=== PATIENT | female | born 1985 | race Caucasian/White ===

== ENCOUNTER 2018-02-16 15:47 | Outpatient (REF) | payer MEDICAID, SELFPAY ==
[2018-02-23 11:15] LABS: Methylphenidate NEGATIVE; Ritalinic Acid NEGATIVE
== END 2018-02-16 16:07 ==
LOC: NCHCN 15:47
PROVIDERS: PCP Family Medicine; Visit Provider Family Medicine
DX: F90.0 Attention-deficit hyperactivity disorder, predominantly inattentive type (principal); F11.20 Opioid dependence, uncomplicated
CPT/HCPCS: 80360

== ENCOUNTER 2019-08-25 01:25 | Outpatient (CLI) | payer MEDICAID, SELFPAY ==
[2019-08-25 15:24] LABS: Abs Immature Grans 0.03 k/cumm (0.0-0.09); Absolute Basophil Count 0.02 k/cumm (0.0-0.2); Absolute Eosinophil Count 0.11 k/cumm (0.0-0.7); Absolute Lymphocyte Count 2.56 k/cumm (1.2-3.4); Absolute Monocyte Count 0.71 k/cumm (0.11-0.7); Absolute Neutrophil Count 6.41 k/cumm (1.2-6.7); Basophils % 0.2; Eosinophils % 1.1; HCT 41.9 % (36.0-46.0); Immature Grans % 0.3 %; Mean Corp. HGB Concentration 33.4 g/dL (32.0-36.0); Mean Corpuscular Hemoglobin 30.8 pg (27.0-33.0); Mean Corpuscular Volume 92.1 fL (80-95); Mean Platelet Volume 11.1 fL (8.0-11.0); Monocytes % 7.2; Neutrophils % 65.2; Platelet Count 170 x1000/uL (130-400); RBC 4.55 m/cumm (4.00-5.20); RBC Distribution Width 12.2 % (11.7-14.6); White Blood Cell Count 9.84 k/cumm (4.4-10.8)
[2019-08-25 15:34] LABS: ALT 45 U/L (14-59); AST 27 U/L (15-37); Albumin 3.7 g/dL (3.4-5.0); Alkaline Phosphatase 46 U/L (46-116); Anion Gap 10.5 mmol/L (3-11); BUN 12 mg/dL (7-18); Bilirubin, Total 0.6 mg/dL (0.2-1.0); CO2 25.5 mmol/L (21.0-32.0); CREATININE 0.82 mg/dL (0.55-1.02); Calcium 9.1 mg/dL (8.5-10.1); Chloride 101 mmol/L (98-107); Glucose 94 mg/dL (74-106); Potassium 3.9 mmol/L (3.5-5.1); Sodium 137 mmol/L (136-145); Total Protein 8.6 g/dL (6.4-8.2)
== END 2019-08-25 01:45 ==
PROVIDERS: PCP Nurse Practitioner Family; Visit Provider Preventive Medicine Public Health & General Preventive Medicine
DX: B18.2 Chronic viral hepatitis C (principal)
CPT/HCPCS: 36415; 80053; 85025

== ENCOUNTER 2020-02-18 15:03 | Emergency (ER) | payer MEDICAID, SELFPAY ==
[2020-02-18 15:07] VITALS: BP 138/99; PULSE 99; RESP 18; TEMP 36.7; O2SAT 99
--- NOTE | 2020-02-18 15:23 | CMPROGNOTE_ITS ---
- If Service Date Differs Date of service: 02/18/20 Time of Service: 15:23 Care Management Progress Note S/O: Vee arrives today to the ED with a history of substance abuse, she is pacing back and fourth and appears agitated. She states she is sick related to opiate withdrawals. She reports she uses 4-5 bags of dope a day intravenously. She is accompanied by her boyfriend Sharan who is supportive in the room. Vee is concerned if she is started on Suboxone today that it will make her ill due to her last dose being this morning. She states she is willing to start with the [facility] program however she is concerned that she may not be able to get in due to a wait list. CM will fax referral to [facility] and request an appointment Wednesday morning if possible. Plan will be for Vee to start her dose here at [facility] today in the emergency department anticipating she will be able to start [facility] on Wednesday if they can fit her in their schedule. RAJ is faxing everything to to the clinic today including a consent to discuss the case with CM and [facility] team to coordinate treatment. A: Vee is a 34 year old female with a history of IV drug use, seeking treatment for withdrawal symptoms and induction to Suboxone. P: CM will follow up with [facility] and patient on Wednesday. Treatment to be started in the ED today. CM faxed forms and consent to [facility] to established care.
--- NOTE | 2020-02-18 15:41 | W.ED.GENAD ---
Discharge Plan Disposition Patient Disposition: HOME Condition: Stable Discharge Details Clinical Impression: Opioid dependence Primary Care Provider: Gianna Montemayor ED Provider: Reji Humphreys Home Meds and New Rx's Prescriptions: New sulfamethoxazole-trimethoprim [Bactrim DS] 800-160 mg tablet 1 tab PO BID 5 Days Qty: 10 RF: 0 diphenhydramine HCl [Benadryl] 25 mg capsule 50 mg PO QHS Qty: 5 RF: 0 Continued acetaminophen [Mapap Extra Strength] 500 MG tablet 1,000 mg PO PRN PRNRF: 0 phenazopyridine 200 mg tablet 200 mg PO TID RF: 0 ondansetron 4 mg tablet,disintegrating 4 mg PO PRN PRNRF: 0 aripiprazole 10 mg tablet 10 mg PO DAILY RF: 0 Discontinued buprenorphine-naloxone [Suboxone] 8-2 mg film 2 film sublingual DAILY RF: 0 No Action sulfamethoxazole-trimethoprim 800-160 mg tablet 1 tab PO BID RF: 0 Discharge Instructions Instructions: Urinary Tract Infection in Women (ED), Opioid Use Disorder (ED) Additional Instructions: You will be contacted by Monique Swann from our care management department tomorrow regarding follow-up at the [facility]. No alcohol or benzodiazepines such as Valium, Ativan. You received a single dose of 8 mg of Suboxone. No additional use of narcotics. You have evidence of urinary tract infection and should take the prescribed Bactrim. May use Benadryl 50 mg as needed for sleep at bedtime. Discharge Data Discharge Date/Time-TO BE ENTERED AT DEPARTURE: 02/18/20 18:55 Medical Decision Making 34-year-old opiate addict who is been using up to 10 bags of IV heroin per day presents with her significant other. She states she is been attempting to obtain entry into local buprenorphine program. States she used 2 bags of heroin last night, attempted to use scraped together small use this morning that she feels was ineffectual. Now with muscle cramps, nausea and anxiety. She is afebrile, pulse is 90, pressure 138/90. Cows score approximately 15-17. Discussed with patient and her significant other that she is exhibiting symptoms of withdrawal, but if she has used any long-acting opiates she would be at risk for precipitated withdrawal if started on buprenorphine. She states she has not used long-acting opiates and reiterates that heroin and fentanyl were her most recent use nearly 24 hours ago. Patient seen by care management in the emergency department and consent for treatment and transition of care to the [facility] obtained. Patient is not . Urine drug screen does not have benzos and. Clinically she has moderate withdrawal. She is desirous of restarting buprenorphine which she has had success with in the past. We discussed initiation of 4 mg versus 8 mg which patient has been on on the past. As above she has been using 10+ bags of heroin. Patient was consented for a single administration of 8 mg of Suboxone. She was observed for 45 minutes. She had some mild precipitated withdrawal symptoms. She was able to eat and drink without difficulty. She was seen by power and recovery supervisor. She requested discharge to home. Patient's labs were reviewed. She has evidence of urinary tract infection will be treated with Bactrim. She may use Benadryl as needed. HPI General Date/Time Provider Initiated Documentation: 02/18/20 15:05. Limitations to Documentation: no limitations. Information obtained by: patient. History of Present Illness 34 year old F presents to the emergency department with the chief complaint of Drug withdrawal, described as moderate, Quality is described as constant, and is localized to the abdomen and lower extremity. Patient started experiencing this hour(s) and it has been constant. No relieving factors improve symptom(s), No exacerbating factors reported . Patient notes loss of appetite; denies fever/chills and nausea/vomiting. Patient did receive the following treatments prior to arrival, none Related Data Home Medications Medication Instructions Recorded Confirmed acetaminophen [Mapap Extra 1,000 mg PO PRN PRN 08/19/12 02/18/20 Strength] aripiprazole 10 mg PO DAILY 02/18/20 02/18/20 diphenhydramine HCl [Benadryl] 50 mg PO QHS #5 cap 02/18/20 ondansetron 4 mg PO PRN PRN 02/18/20 02/18/20 phenazopyridine 200 mg PO TID 02/18/20 02/18/20 sulfamethoxazole-trimethoprim 1 tab PO BID 02/18/20 02/18/20 sulfamethoxazole-trimethoprim 1 tab PO BID 5 Days #10 tab 02/18/20 [Bactrim DS] Previous Rx's Medication Instructions Recorded diphenhydramine HCl [Benadryl] 50 mg PO QHS #5 cap 02/18/20 sulfamethoxazole-trimethoprim 1 tab PO BID 5 Days #10 tab 02/18/20 [Bactrim DS] Allergies Allergy/AdvReac Type Severity Reaction Status Date / Time aspirin Allergy Mild Hives Unverified 02/18/20 15:09 codeine [Codeine] Allergy Mild Hives Unverified 02/18/20 15:09 General Stated Complaint: DrugWithdr/MAT CORY: 2 Review of Systems Narrative: Last use of heroin/fentanyl last night and this morning. Previously on buprenorphine. 6 systems reviewed and otherwise negative. [facility] Social History Smoking/Tobacco Use Status: Current every day Drug use: Daily Substance use type: heroin Do you feel safe in your relationship?: No Exam Narrative Exam Narrative: GEN: awake, alert, anxious. Pleasant, well groomed, interactive. HEAD: Normocephalic, atraumatic ENT: Mucous membranes moist, oropharynx unremarkable, External ear exam unremarkable EYES: PERRL, EOMI NECK: Full ROM, no GILMA, no menigismus CHEST/RESP: Nontender, clear to auscultation bilateral, no wheeze/rhonchi/rales CARDIOVASCULAR: RRR, no murmur, rub danielle. 2+ Rad pulse bilateral ABDOMEN: Soft, nontender, no mass. +Bowel sounds EXT: Full ROM, no edema, no rash Neuro: Grossly normal neurologic exam, conversant, interactive. Psych: Speech fluent, thoughts congruent, affect anxious Course Vital Signs Vital signs: Vital Signs Temperature 36.7 C 02/18/20 15:07 Pulse 99 H 02/18/20 15:07 Respiratory Rate 18 02/18/20 15:07 Blood Pressure 138/99 H 02/18/20 15:07 Pulse Oximetry 99 02/18/20 15:07 Temperature 36.7 C 02/18/20 15:07 Pulse 99 H 02/18/20 15:07 Respiratory Rate 18 02/18/20 15:07 Respiratory Effort Non-Labored 02/18/20 15:10 Respiratory Pattern Normal 02/18/20 15:22 Blood Pressure 138/99 H 02/18/20 15:07 Blood Pressure Position Sitting 10/11/20 15:07 Pulse Oximetry 99 02/18/20 15:07 Oxygen Delivery Method Room Air 02/18/20 15:07 Oxygen Flow Rate 0 02/18/20 15:07
[2020-02-18] MEDS: cloNIDine 0.1 MG TAB 0.2 MG PO (15:53)
[2020-02-18 16:15] LABS: Abs Immature Grans 0.02 10^3/uL (0.0-0.06); Absolute Basophil Count 0.02 10^3/uL (0.0-0.2); Absolute Eosinophil Count 0.11 10^3/uL (0.0-0.7); Absolute Lymphocyte Count 2.84 10^3/uL (1.2-3.4); Absolute Monocyte Count 0.61 10^3/uL (0.1-0.8); Absolute Neutrophil Count 3.89 10^3/uL (1.2-6.7); Basophils % 0.3; Eosinophils % 1.5; HCT 41.8 % (36.0-46.0); HGB 13.5 g/dL (11.2-15.7); Immature Grans % 0.3; Lymphocytes % 37.9; MCH 28.7 pg (27.0-33.0); MCHC 32.3 % (32.0-36.0); MCV 88.9 fL (80-95); Monocytes % 8.1; Neutrophils % 51.9; Nucleated RBC 0 %; Platelet Count 229 10^3/uL (130-400); RDW 12.9 % (11.7-14.6); RDW-SD 42.3 fL; WBC 7.49 10^3/uL (4.4-10.8)
[2020-02-18 16:26] LABS: Bilirubin Negative (Negative); Blood Negative (Negative); Clarity Clear (Clear); Glucose Negative (Negative); Ketones Negative (Negative); Leukocyte Esterase Negative (Negative); Nitrite Positive (Negative); Specific Gravity 1.015 (1.005-1.025); Urobilinogen 0.2 EU/dL (Up TO 0.2)
[2020-02-18 16:27] LABS: ALT 36 U/L (14-59); AST 17 U/L (15-37); Albumin 3.5 g/dL (3.4-5.0); Alkaline Phosphatase 66 U/L (46-116); Anion Gap 8.1 mmol/L (3-11); BUN 15 mg/dL (7-18); Bilirubin, Total 0.2 mg/dL (0.2-1.0); CO2 30.9 mmol/L (21.0-32.0); CREATININE 0.81 mg/dL (0.55-1.02); Chloride 100 mmol/L (98-107); Glucose 79 mg/dL (74-106); Potassium 3.8 mmol/L (3.5-5.1); Sodium 139 mmol/L (136-145); Total Protein 8.6 g/dL (6.4-8.2)
[2020-02-18 16:32] LABS: *AMPHETAMINES SCREEN URINE POSITIVE (Negative); *BARBITURATES SCREEN URINE Negative (Negative); *BENZODIAZEPINES SCREEN URINE Negative (Negative); Cannabinoids THC Negative (Negative); Cocaine Screen,Urine POSITIVE (Negative); METHADONE URINE SCREEN Negative (Negative); OPIATES URINE SCREEN POSITIVE (Negative)
[2020-02-18 16:34] LABS: Bacteria Many HPF (Negative); C & S Indicated? No/Sq. Contamination; Casts Negative LPF (Negative); Crystals Negative HPF (Negative); Epithelial Cells Moderate HPF (Negative); Mucus Negative (Negative); RBC Negative HPF (0-2)
[2020-02-18 16:38] LABS: Tricyclic Antidepressants Negative (Negative)
[2020-02-18 16:39] LABS: ETHANOL BLOOD < 3.0 mg/dL (<3)
[2020-02-18] MEDS: Buprenorphine/Naloxone 8 mg/2 mg FILM 1 EACH SL (17:12)
[2020-02-18 17:37] VITALS: BP 123/76; PULSE 67; TEMP 36.8; O2SAT 98
[2020-02-18] MEDS: diphenhydrAMINE 25 MG CAP 50 MG PO (18:34)
[2020-02-20 10:30] LABS: HIV-1/2 Ag & Ab Screen Negative (Negative)
[2020-02-20 10:58] LABS: HBs Antibody, Quant 14.3 mIU/mL (See Note); Hep B Surface Ab Positive (See Note); Hepatitis B Core Antibody Negative (Negative); Hepatitis B Surface Antigen Negative (Negative)
[2020-02-20 11:22] LABS: Hepatitis C Ab w Rflx HCV PCR Reactive (Negative)
[2020-02-21 13:50] LABS: HCV RNA Qualitative Detected (Undetected)
== END 2020-02-18 18:55 | disposition home or self-care (01) ==
PROVIDERS: Emergency Provider Emergency Medicine; PCP Nurse Practitioner Family
DX: F11.23 Opioid dependence with withdrawal (principal); N39.0 Urinary tract infection, site not specified; R11.0 Nausea; M79.10 Myalgia, unspecified site; F41.9 Anxiety disorder, unspecified
CPT/HCPCS: 36415; 80053; 80307; 81025; 86704; 86706; 86803; 87340; 87389; 87522; 99283; 80320; 81003; 81015; 85025; 99284

== ENCOUNTER 2020-02-19 14:28 | Emergency (ER) | payer MEDICAID, SELFPAY ==
[2020-02-19 14:33] VITALS: BP 113/70; PULSE 79; RESP 16; TEMP 36.7; O2SAT 98
--- NOTE | 2020-02-19 14:35 | ED.GENADUL_ITS ---
Discharge Plan Disposition Patient Disposition: HOME Condition: Stable Discharge Details Clinical Impression: Opioid dependence Primary Care Provider: Gianna Montemayor ED Provider: Juan Muller Home Meds and New Rx's Prescriptions: Continued acetaminophen [Mapap Extra Strength] 500 MG tablet 1,000 mg PO PRN PRNRF: 0 phenazopyridine 200 mg tablet 200 mg PO TID RF: 0 sulfamethoxazole-trimethoprim 800-160 mg tablet 1 tab PO BID RF: 0 ondansetron 4 mg tablet,disintegrating 4 mg PO PRN PRNRF: 0 aripiprazole 10 mg tablet 10 mg PO DAILY RF: 0 sulfamethoxazole-trimethoprim [Bactrim DS] 800-160 mg tablet 1 tab PO BID 5 Days Qty: 10 RF: 0 diphenhydramine HCl [Benadryl] 25 mg capsule 50 mg PO QHS Qty: 5 RF: 0 Discharge Instructions Instructions: Opioid Use Disorder (ED) Additional Instructions: You were given a dose of buprenorphine today. Please continue to refrain from using any additional opioids. Follow-up tomorrow with the [facility] as scheduled. Please contact your primary care physician to arrange follow-up. Return to the ER for any worsening or new concerning symptoms. Referrals: [facility] [Provider Group] Gianna Montemayor [Primary Care Provider] - Medical Decision Making 34-year-old female with opioid use disorder, here for second dose of buprenorphine as part of induction and transition to [facility]. Buprenorphine 8 mg administered. Care management was consulted to assist with helping for transportation to establish temporary housing. Patient was encouraged to follow-up at [facility] tomorrow as scheduled. HPI General Mode of arrival: ambulatory . Date/Time Provider Initiated Documentation: 02/19/20 14:31 . Limitations to Documentation: no limitations . Information obtained by: patient . HPI Narrative: 34-year-old female presents for buprenorphine dosing. Patient was seen here yesterday in the emergency department and buprenorphine induction for opioid use disorder treatment. She returns today for second dose. She denies interim use of opioids or other illicit substances. She states that she feels like she has mild withdrawal. She is having issues with housing currently. Related Data Home Medications Medication Instructions Recorded Confirmed acetaminophen [Mapap Extra 1,000 mg PO PRN PRN 08/19/12 02/19/20 Strength] aripiprazole 10 mg PO DAILY 02/18/20 02/19/20 diphenhydramine HCl [Benadryl] 50 mg PO QHS #5 cap 02/18/20 02/19/20 ondansetron 4 mg PO PRN PRN 02/18/20 02/19/20 phenazopyridine 200 mg PO TID 02/18/20 02/19/20 sulfamethoxazole-trimethoprim 1 tab PO BID 02/18/20 02/19/20 sulfamethoxazole-trimethoprim 1 tab PO BID 5 Days #10 tab 02/18/20 02/19/20 [Bactrim DS] Previous Rx's Medication Instructions Recorded diphenhydramine HCl [Benadryl] 50 mg PO QHS #5 cap 02/18/20 sulfamethoxazole-trimethoprim 1 tab PO BID 5 Days #10 tab 02/18/20 [Bactrim DS] Allergies Allergy/AdvReac Type Severity Reaction Status Date / Time aspirin Allergy Mild Hives Unverified 02/19/20 14:46 codeine [Codeine] Allergy Mild Hives Unverified 02/19/20 14:46 General CORY: 2 Review of Systems Gastrointestinal Gastrointestinal: Reports nausea PFSH Social History Smoking/Tobacco Use Status: Current every day Drug use: Daily Substance use type: heroin Do you feel safe in your relationship?: No Exam Const General: cooperative and no acute distress HENMT Mouth: moist mucous membranes Neck Neck: trachea midline and supple Resp Auscultation: clear to auscultation bilaterally Cardio Rate: regular rate (96) and not tachycardic Rhythm: regular rhythm Neuro General: patient alert, patient awake, patient oriented x3 and tone normal Psych Appearance: grossly normal Mental Status: mental status grossly normal Speech and Movement: speech and movement normal
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
--- NOTE | 2020-02-19 15:19 | NUR.NOTE ---
Monique in speaking with pt and visitor
[2020-02-19 15:25] VITALS: BP 132/97; PULSE 87; RESP 15; O2SAT 97
--- NOTE | 2020-02-20 06:33 | NUR.NOTE ---
Catie from [facility] called for info on pt last dose of buprenorphine.
== END 2020-02-19 15:30 | disposition home or self-care (01) ==
PROVIDERS: Emergency Provider Student in an Organized Health Care Education/Training Program; PCP Nurse Practitioner Family
DX: F11.20 Opioid dependence, uncomplicated (principal); R11.0 Nausea
CPT/HCPCS: 99283; 99282; J3490

== ENCOUNTER 2020-03-17 20:35 | Emergency (ER) | payer MEDICAID, SELFPAY ==
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
[2020-03-17 20:36] VITALS: BP 103/88; PULSE 126; RESP 24; TEMP 36.6; O2SAT 99
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
[2020-03-17] MEDS: Acetaminophen 500 MG TAB 1000 MG PO (20:55)
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
[2020-03-17] MEDS: metroNIDAZOLE 500 MG TAB 2000 MG PO (23:30)
[2020-03-17] MEDS: Azithromycin 250 MG TAB 1000 MG PO (23:30)
== END 2020-03-18 00:31 | disposition home or self-care (01) ==
PROVIDERS: Emergency Provider Student in an Organized Health Care Education/Training Program; PCP Nurse Practitioner Family
DX: T74.11XA Adult physical abuse, confirmed, initial encounter (principal); R07.81 Pleurodynia
CPT/HCPCS: 99285; 71046; 99284

== ENCOUNTER 2020-12-16 18:09 | Inpatient (IN) | payer MEDICAID, SELFPAY ==
[2020-12-16] VITALS (10 sets, daily range): BP systolic 120–126; BP diastolic 74–77; PULSE 70–94; RESP 20; TEMP 37.2; O2SAT 100
--- NOTE | 2020-12-16 19:00 | DI.RAD_ITS ---
Exam(s) XR ANKLE LT COMPLETE EXAM: XR ANKLE LT COMPLETE CLINICAL HISTORY: pain, swelling, unable to range joint, erythema, I TECHNIQUE: 2D digital imaging was performed. COMPARISON: No exams were available for comparison FINDINGS: BONES: Question nondisplaced fracture seen at the tip of the lateral malleolus on the AP view. No pato ny destructive lesion is seen. JOINTS:The ankle mortise is normally aligned. SOFT TISSUE: Marked soft tissue swelling around the malleoli malleoli greater medially. IMPRESSION: Question of nondisplaced fracture of the lateral malleolus.. DATA REPOSITORY: RADIATION DOSE DELIVERED:
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
--- NOTE | 2020-12-16 20:32 | DI.VRAD_ITS ---
PROCEDURE INFORMATION: Exam: XR Left Ankle Exam date and time: 12/16/2020 7:08 PM Age: 34 years old Clinical indication: Ankle; Left; Patient HX: Pain, swelling, unable to range joint, erythema, ivda; Additional info: Medial pain TECHNIQUE: Imaging protocol: XR Left ankle. Views: 3 or more views. COMPARISON: No relevant prior studies available. FINDINGS: Bones/joints: Subtle lucency over the distal fibula could represent a nondisplaced fracture. No malalignment. Moderate medial and mild lateral malleolar soft tissue swelling. Soft tissues: See Bones/joints finding. IMPRESSION: Possible distal left fibular fracture Dictated and Authenticated by: Yasir Lopez MD. Ordering:ANAI Sanchez MD
[2020-12-16 20:50] LABS: Abs Immature Grans 0.08 10^3/uL (0.0-0.06); Absolute Basophil Count 0.05 10^3/uL (0.0-0.2); Absolute Eosinophil Count 0.03 10^3/uL (0.0-0.7); Absolute Lymphocyte Count 2.58 10^3/uL (1.2-3.4); Absolute Monocyte Count 0.79 10^3/uL (0.1-0.8); Basophils % 0.3; Eosinophils % 0.2; HCT 36.5 % (36.0-46.0); HGB 11.9 g/dL (11.2-15.7); Immature Grans % 0.5; Lactate 0.9 mmol/L (0.6-1.4); Lymphocytes % 16.7; MCH 28.1 pg (27.0-33.0); MCHC 32.6 % (32.0-36.0); MCV 86.1 fL (80-95); MPV 10.8 fL (8.0-11.0); Monocytes % 5.1; Neutrophils % 77.2; Nucleated RBC 0 %; Platelet Count 288 10^3/uL (130-400); RBC 4.24 10^6/uL (3.93-5.22); RDW 13.6 % (11.7-14.6); RDW-SD 42.4 fL; WBC 15.46 10^3/uL (4.4-10.8)
[2020-12-16 20:51] LABS: Absolute Neutrophil Count 11.94 10^3/uL (1.2-6.7)
[2020-12-16] MEDS: HYDROmorphone 2 MG/ML VIAL 0.5 MG IVP (20:59)
[2020-12-16] MEDS: ACETAMINOPHEN 1,000 MG/100 ML BTL 400 MG IVPB (20:59)
[2020-12-16] MEDS: cefTRIAXone 2 GM/50 ML BAG IVPB (20:59)
[2020-12-16] MEDS: HYDROmorphone 2 MG/ML VIAL 1 MG IVP (21:09)
[2020-12-16] MEDS: Ketorolac 15 MG/ML VIAL IVP (21:09)
[2020-12-16 21:11] LABS: ALT 444 U/L (14-59); AST 257 U/L (15-37); Albumin 3.8 g/dL (3.4-5.0); Alkaline Phosphatase 98 U/L (46-116); Anion Gap 9.6 mmol/L (3-11); BUN 16 mg/dL (7-18); C-Reactive Protein 2.87 mg/dL (0.0-0.3); CO2 27.4 mmol/L (21.0-32.0); CREATININE 0.8 mg/dL (0.55-1.02); Calcium 9.1 mg/dL (8.5-10.1); Chloride 100 mmol/L (98-107); Glucose 87 mg/dL (74-106); Potassium 3.2 mmol/L (3.5-5.1); Sodium 137 mmol/L (136-145); Total Protein 8.7 g/dL (6.4-8.2)
[2020-12-16] MEDS: HYDROmorphone 2 MG/ML VIAL (22:02)
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
[2020-12-16 23:28] LABS: Source Nasal/Nares
[2020-12-16] MEDS: VANCOMYCIN 1,000 MG in Normal Saline 250 ML 166.6666 MG IVPB (23:29)
[2020-12-17] VITALS (15 sets, daily range): BP systolic 95–152; BP diastolic 42–82; PULSE 69–97; RESP 16–29; TEMP 36–38.6; O2SAT 94–100; BMI 22.9
[2020-12-17 00:19] LABS: COVID-19 PCR Negative (Negative)
[2020-12-17] MEDS: HYDROmorphone 2 MG/ML VIAL IVP ×5 (01:03→22:50)
[2020-12-17] MEDS: Ondansetron 4 MG/2 ML VIAL IVP (01:03)
[2020-12-17] MEDS: Lactated Ringers 1,000 ML 100 ML IV ×2 (01:03→11:46)
[2020-12-17] MEDS: Normal Saline Flush 10 ML SYR ×4 (01:04→08:36)
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
[2020-12-17] MEDS: Ketorolac 15 MG/ML VIAL IVP ×4 (06:31→23:42)
[2020-12-17] MEDS: fentaNYL 100 MCG/2 ML VIAL 50 MCG IVP (06:31)
[2020-12-17] MEDS: HYDROmorphone 2 MG/ML VIAL 1 MG IVP (08:31)
[2020-12-17] MEDS: PIPERACILLIN/TAZO 3.375 GM in Normal Saline 50 ML IVPB ×3 (08:32→20:20)
--- NOTE | 2020-12-17 10:43 | PDOC.CMIN ---
- If Service Date Differs Date of service: 12/17/20 Time of Service: 10:44 Care Management Initial Assess REASON FOR HOSPITALIZATION:: Ankle abscess PAST MEDICAL HISTORY/PAST SURGICAL HISTORY:: TYLER: heroin, opiates, inhalants, tobacco, smokes fentanyl PREVIOUS FUNCTIONAL STATUS/SOCIAL/FAMILY SUPPORTS:: Vee resides in [place], [place]. Her parents live seperate, both remain local. Vee is independent with all ADLs in the community. CURRENT FUNCTIONAL STATUS:: Vee is lying in bed, uncomfortable when CM meets with her. CM paged power and recovery superintendent to discuss TYLER resources with Etta. Winnie arrived shortly therafter to meet with her. Etta will be brought to the OR today; awaiting MD notification for next steps in treatment plan. ADVANCE DIRECTIVES:: None on file. Has patient been provided with info about the portal/API?: No Did the patient sign up for the portal?: No CODE STATUS:: Full Code INSURANCE COVERAGE / FINANCIAL ISSUES:: Medicaid PRIMARY CARE PHYSICIAN:: Gianna Montemayor POTENTIAL DISCHARGE NEEDS:: Vee is requesting support with methadone maintenance program, will be offered Marketing Clerk and TYLER supports. PATIENT/FAMILY EDUCATION NEEDS:: Review of discharge instructions, discuss Ask Me Three. ANTICIPATED BARRIERS TO DISCHARGE:: None identified at this time. TRANSPORTATION:: Via private vehicle with family. PLAN:: Vee will be brought to the OR today, CM continues to follow to support discharge planning considerations including review of TYLER treatment options and maintenance program attachment.
[2020-12-17] MEDS: VANCOMYCIN 1,000 MG in Normal Saline 250 ML 250 MG IV (10:50)
[2020-12-17 11:11] LABS: HCG Qual (Urine) Negative
[2020-12-17 11:22] LABS: *AMPHETAMINES SCREEN URINE Negative (Negative); *BARBITURATES SCREEN URINE Negative (Negative); *BENZODIAZEPINES SCREEN URINE Negative (Negative); Cannabinoids THC Negative (Negative); Cocaine Screen,Urine Positive (Negative); METHADONE URINE SCREEN Negative (Negative); OPIATES URINE SCREEN Positive (Negative)
[2020-12-17 11:26] LABS: Tricyclic Antidepressants Negative (Negative)
[2020-12-17] MEDS: Dicyclomine 10 MG CAP PO ×3 (11:41→22:03)
[2020-12-17] MEDS: cloNIDine 0.1 MG TAB PO (11:41)
[2020-12-17] MEDS: diazePAM 5 MG TAB PO ×2 (11:42→22:03)
--- NOTE | 2020-12-17 11:59 | W.ANESPRE ---
General Info Date of Service Date Performed: 12/17/20 Height: 5 ft 2 in Weight: 57 kg Body Mass Index (BMI): 22.9 Surgical Procedure: Operation Date: 12/17/20 15:10 Proposed Procedures Side Surgeon p Debridement Left Virgil Branham MD Meds Allergies and Home Medications Allergies Allergy/AdvReac Type Severity Reaction Status Date / Time aspirin Allergy Mild Hives Unverified 02/19/20 14:46 codeine [Codeine] Allergy Mild Hives Unverified 02/19/20 14:46 Home Medication Medication Instructions Recorded Unknown [No Known Home Meds] 12/16/20 Current Visit Medications: Current Medications Generic Name Dose Route Start Last Admin Trade Name Freq PRN Reason Stop Dose Admin Clonidine 0.1 mg 12/17/20 11:10 12/17/20 11:41 Clonidine 0.1 Mg Tab PO 0.1 mg Q4H PRN PRN Administration Diazepam 5 mg 12/17/20 11:04 12/17/20 11:42 Diazepam 5 Mg Tab PO 5 mg Q8H PRN PRN Administration Dicyclomine HCl 10 mg 12/17/20 10:59 12/17/20 11:41 Dicyclomine 10 Mg Cap PO 10 mg QID PRN PRN Administration Dimethicone/Zinc Oxide 0 gm 12/16/20 22:48 Nella Protect Cream 142 Gm Tube TP PRN PRN Gabapentin 100 mg 12/17/20 14:00 Gabapentin 100 Mg Cap PO TID LINA Hydromorphone HCl 2 - 4 mg 12/17/20 11:12 Hydromorphone 2 Mg/Ml Vial IVP Q4H PRN PRN Hydroxyzine Pamoate 50 mg 12/17/20 10:59 Hydroxyzine Pamoate 25 Mg Cap PO Q6H PRN PRN Ringer's Solution 1,000 mls @ 100 mls/hr 12/16/20 23:00 12/17/20 11:46 IV 100 mls/hr INFUSION LINA Administration Vancomycin HCl / Sodium 250 mls @ 0 mls/hr 12/17/20 07:15 Chloride IV .PER PROTOCOL LINA Protocol Per Protocol Piperacillin Sod/Tazobactam 50 mls @ 100 mls/hr 12/17/20 08:00 12/17/20 08:32 Sod 3.375 gm/ Sodium Chloride IVPB 100 mls/hr Q6H LINA Administration Protocol Sodium Chloride 500 mls @ 0 mls/hr 12/17/20 08:29 Saline 500ml Bag IVPB PRN PRN As Directed Sodium Chloride 50 mls @ 0 mls/hr 12/17/20 08:29 Saline 50ml Bag IVPB PRN PRN As Directed Ketorolac Tromethamine 15 mg 12/17/20 06:00 12/17/20 11:41 Ketorolac 15 Mg/Ml Vial IVP 12/22/20 05:59 15 mg Q6H LINA Administration Loperamide HCl 2 mg 12/17/20 10:59 Loperamide 2 Mg Cap PO QLOOSE PRN Nicotine 2 mg 12/16/20 22:53 Nicotine 2 Mg Lozg SUC Q1H PRN PRN Ondansetron HCl 4 mg 12/16/20 22:48 12/17/20 01:03 Ondansetron 4 Mg/2 Ml Vial IVP 4 mg Q4H PRN PRN Administration Sodium Chloride 0 ml 12/17/20 08:29 Normal Saline Flush 10 Ml Syr IVP PRN PRN PFSH Active Problems Active Problems: Problem Status Onset Code Cutaneous abscess of left ankle L02.416 Closed fracture of left distal fibula S82.832A Abscess L02.91 Tobacco Smoking/Tobacco Use Status: Current every day Alcohol Alcohol Intake: never Substance Use Substance use: Daily Substance use type: heroin, opiates and inhalants Details: smokes fentanyl Vital Signs and Lab Results Vital Signs Most Recent Vital Signs in EMR: Most Recent Vital Signs Temp Pulse Resp BP Pulse Ox 38.6 C H 97 H 20 152/82 H 95 12/17/20 05:43 12/17/20 03:52 12/17/20 03:52 12/17/20 03:52 12/17/20 03:52 Lab Results Result Diagrams: 12/16/20 20:40 12/16/20 20:40 Blood Type / Crossmatch: No Data to Display Complete Blood Count: White Blood Count 15.46 10^3/uL (4.4-10.8) H 12/16/20 20:40 12/16/20 Red Blood Count 4.24 10^6/uL (3.93-5.22) 12/16/20 20:40 12/16/20 Hemoglobin 11.9 g/dL (11.2-15.7) 12/16/20 20:40 12/16/20 Hematocrit 36.5 % (36.0-46.0) 12/16/20 20:40 12/16/20 Platelet Count 288 10^3/uL (130-400) 12/16/20 20:40 12/16/20 Venous Blood Lactate 0.9 mmol/L (0.6-1.4) 12/16/20 20:40 12/16/20 Complete Metabolic Panel: Sodium Level 137 mmol/L (136-145) 12/16/20 20:40 12/16/20 Potassium Level 3.2 mmol/L (3.5-5.1) L 12/16/20 20:40 12/16/20 Chloride Level 100 mmol/L (98-107) 12/16/20 20:40 12/16/20 Carbon Dioxide Level 27.4 mmol/L (21.0-32.0) 12/16/20 20:40 12/16/20 Blood Urea Nitrogen 16 mg/dL (7-18) 12/16/20 20:40 12/16/20 Creatinine 0.8 mg/dL (0.55-1.02) 12/16/20 20:40 12/16/20 Estimated GFR/1.73 m2 >= 60.00 (mL/min/1.73m2) 12/16/20 20:40 12/16/20 Calcium Level 9.1 mg/dL (8.5-10.1) 12/16/20 20:40 12/16/20 Albumin 3.8 g/dL (3.4-5.0) 12/16/20 20:40 12/16/20 Glucose Level 87 mg/dL (74-106) 12/16/20 20:40 12/16/20 C-Reactive Protein 2.87 mg/dL (0.0-0.3) H 12/16/20 20:40 12/16/20 Liver Function Panel: Alanine Aminotransferase (ALT/SGPT) 444 U/L (14-59) H 12/16/20 20:40 12/16/20 Aspartate Amino Transf (AST/SGOT) 257 U/L (15-37) H 12/16/20 20:40 12/16/20 Coagulation Panel: No Data to Display Cardiac Panel: Creatine Kinase Pending 12/17/20 07:10 12/17/20 Arterial Blood Gas: No Data to Display Venous Blood Gas: No Data to Display Pancreas Panel: No Data to Display Thyroid Panel: No Data to Display Infectious Disease: Coronavirus (COVID-19)(PCR) Negative (Negative) 12/16/20 23:10 12/16/20 Coronavirus 2019 Source Nasal/Nares 12/16/20 23:10 12/16/20 Blood Cultures: No Data to Display Toxicology Panel: Urine Amphetamines Screen Negative (Negative) 12/17/20 10:48 12/17/20 Urine Benzodiazepines Screen Negative (Negative) 12/17/20 10:48 12/17/20 Urine Barbiturates Screen Negative (Negative) 12/17/20 10:48 12/17/20 Urine Cocaine Screen Positive (Negative) A 12/17/20 10:48 12/17/20 Urine Methadone Screen Negative (Negative) 12/17/20 10:48 12/17/20 Urine Opiates Screen Positive (Negative) A 12/17/20 10:48 12/17/20 Ur Tricyclic Antidepressants Screen Negative (Negative) 12/17/20 10:48 12/17/20 Ur Tetrahydrocannabinol (THC) Scrn Negative (Negative) 12/17/20 10:48 12/17/20 Panel: Urine HCG, Qualitative Negative 12/17/20 10:48 12/17/20 Anesthesia Assessment and Plan Anesthesia History Personal History: No History of Anesthesia Complications Family History: No Family History of Anesthesia Complications Exercise Tolerance Exercise Tolerance: Metabolic Equivalents>4 Pertinent Negatives Pertinent Negatives: No Symptoms of GERD, No Major Cardiovascular Symptoms or Complaints and No Major Pulmonary Symptoms or Complaints Cardiac & Pulmonary Exam Cardiac Exam: Normal S1/S2 Heart Sounds Pulmonary Exam: Clear Bilateral Breath Sounds Airway Exam Known Difficult Airway: No Mallampati Class: 2 Mouth Opening: Normal (> 3cm) Thyromental Distance: Greater than 3 cm Neck Range of Motion: Full ROM Neck Circumference: Normal Teeth Condition: Normal Dentition ASA Classification ASA Score: ASA 3 Emergency Case?: No NPO Status NPO Status: NPO Clears >2 hours, Solids >8 hours Status Status: Negative HCG Anesthesia Plan Resuscitation Status: Full Code Anesthesia Technique: General Anesthesia Airway Planned: LMA Monitors Used: Standard Monitors
[2020-12-17] MEDS: Bupivacaine 0.25% Pres-Free 30 ML VIAL (14:50)
--- NOTE | 2020-12-17 15:06 | W.ANESVAS ---
Midline Placement Date Performed: 12/17/20 Procedure Time: 15:00 Requesting Provider: Sylvia Werner Procedure Location: Operating Room Sedation Given (Indicate Dose Given): No Sedation given Patient Mental Status: Performed under general anesthesia Sterility: Hand Hygiene, Surgical Cap, Surgical Mask, Sterile Gloves and Chlorhexidine Laterality: Right Insertion Site: Basilic Midline Device: PowerGlide Pro 18G Catheter Length: 10 cm Midline Procedure Procedure: Vessel accessed with catheter over needle, Guidewire placed with ease, Catheter placed without resistance and Guidewire removed Dressing: Tegaderm Applied and Statlock Applied Blood Return: Present Flushes: Easily Ultrasound: Sterile probe cover and gel used Ultrasound Image Saved?: Yes Number of Attempts (See previous attempts in note section): 1 Procedure Tolerated: No Complications and Patient tolerated well Procedure Outcome: Successful Procedure Comment:: Requested due to very poor IV access and antibiotics over a period of time. Performed By: Nnamdi Victoria
--- NOTE | 2020-12-17 15:18 | W.PM.OP ---
Date of service: 12/17/20 Time of Service: 15:18 Operative Note Operative Note DATE OF PROCEDURE: 12/17/20 PRE-OP DIAGNOSIS: Left Ankle Subcutaneous Abscess POST-OP DIAGNOSIS: same PROCEDURE: Incision and Debridement of Left Ankle Abscess SURGEON: Virgil Branham STAIN REMOVER: Lobo Rebolledo ANESTHESIA TYPE: General LMA/ETT Refer to Anesthesia Record ESTIMATED BLOOD LOSS: 0 PATHOLOGY: other (Aerobic and Anaerobic Cultures) TOURNIQUET TIME: 0 COMPLICATIONS: None Patient was transported to: PACU Patient's condition: stable Indications: Vee is a 34-year-old female IV drug user who injected fentanyl to the medial side of her left ankle. She suffered a subcutaneous abscess which is actively draining with fever and chills. Given the continued purulent drainage and clinical symptoms, I recommended operative debridement. I discussed the risk of the procedure to include bleeding, infection persistence, pain, stiffness, need for repeat procedures, wound healing difficulties, damage to nerves and vessels. Despite these risk, she elected to proceed. Findings: There is gross and malodorous purulence from the medial side of the left ankle. There is no penetration of the deeper fascial tissues and there appeared to be chronic changes to the saphenous vein in this area. Aerobic and anaerobic cultures were sent to the lab. An aggressive debridement with irrigation was performed. Procedure Description: Vee is a 34-year-old who was greeted preoperative holding area. Her identity was confirmed the correct side was identified. She was previously consented in her room on the medical surgical floor. She is taken to the operating room. She is placed in supine position. General anesthetic was administered. Following the general anesthetic, and midline was placed for intravenous access. She previously received antibiotics on the floor in the form of Zosyn. The dressing and wick was removed from the left ankle and the left leg was prepped with Betadine. A timeout was performed for safe surgery. The previous area of incision was opened with a hemostat. There was gross, malodorous purulence expressing itself from the wound. Aerobic anaerobic cultures were sent of this material. I then extended the incision 2 cm proximally and 2 cms distally. Blunt dissection used to open up the subcutaneous tissues. With a soft tissue retractor in place the purulence was removed. A brief amount of irrigation was administered to clean the wound. I then used my finger as well as a elevator to explore the subcutaneous pocket of the abscess. There is significant inflammatory tissue seen around this area. Both anteriorly and medially was inspected and while the joint was palpable there was no defect in the joint capsule. There is no exposed tendon. I used a Ray-Obed as well as an osteotome to debride this tissue. Then 3 L of normal saline were irrigated through the wound using high flow cystoscopy tubing. There is no gross purulence remaining. The ankle was mobilized and palpated throughout and there was no tracking wounds and no further purulent material encountered. I did perform a large field block just proximal to the ankle and the area of the abscess using a mixture of 1% lidocaine with epinephrine and 0.25% bupivacaine. This was done to target the posterior tibial, deep peroneal, superficial peroneal, and saphenous nerves. I also injected in and around the abscess itself although this is less likely to be successful. The wound was once again inspected and without signs of purulence was closed. 2-0 PDS was used to close the deep tissues. A Alla drain was placed in the middle of the wound to keep the wound slightly open for any drainage. The skin was closed without tension using a 4-0 nylon. The wound was dressed with Xeroform, 4 x 4's, ABD, Kerlix, Micky wrap. Cultures were sent to the lab. At the end the case all counts are correct. She is transferred back to the PACU in stable condition.
--- NOTE | 2020-12-17 16:04 | W.ANESPOSTOP ---
Postoperative Evaluation Date, Time and Location Date Performed: 12/17/20 Time Performed: 16:04 Patient Location: PACU Vital Signs Most Recent Imported Vital Signs: Most Recent Vital Signs Temp Pulse Resp BP Pulse Ox 36.0 C L 75 22 128/65 100 12/17/20 15:40 12/17/20 15:40 12/17/20 15:40 12/17/20 15:40 12/17/20 15:40 Pain Score Most Recent Pain Score: Most Recent Pain Score Pain Level [Left Foot] 12/17/20 05:40 Pain Level 4 12/17/20 15:40 Assessment Mental Status: Awake (Alert & Oriented to Patient Baseline) Airway and Respiratory Function: Patent airway with normal (patient baseline) respiratory exam Cardiovascular Function: Hemodynamically Stable Hydration Status: Adequately Hydrated Nausea & Vomiting: No Nausea or Vomiting Pain: Pain is tolerable per patient Peripheral Nerve Block: Patient did not receive a nerve block
--- NOTE | 2020-12-17 16:51 | W.PM.PROGNOT ---
Date of Service Date of service: 12/17/20 Time of Service: 16:51 Assessment and Plan Assessment and plan (1) Sepsis: Status: Acute Assessment and plan: Due to cellulitis and superficial/subcutaneous abscess of left ankle. No septic joint. Continue vancomycin, zosyn initiated this am. Await blood cultures and wound culture. GNR and GPC on preliminary would cultures. Remainder of cultures are pending. (2) Cellulitis of left ankle: Status: Acute Assessment and plan: As above (3) Cutaneous abscess of left ankle: Status: Acute Assessment and plan: Likely polymicrobial. S/p I&D today. As above (4) Closed fracture of left distal fibula: Status: Acute Assessment and plan: No surgery indicated. Boot for ambulation, elevate leg, pain control. Qualifiers: Encounter type: initial encounter Fracture morphology: unspecified fracture morphology Qualified Code(s): S82.832A - Other fracture of upper and lower end of left fibula, initial encounter for closed fracture (5) Intractable pain: Status: Acute Assessment and plan: Higher dose of dilaudid ordered with plans to wean quickly. (6) IV drug abuse: Status: Acute Assessment and plan: Provide prn clonidine, hydroxyzine, etc. Care management to provide resources for rehab (7) DVT prophylaxis: Status: Acute Assessment and plan: Not indicated in an ambulatory 34 year old female. However, would start if remains mostly in bed tomorrow (8) Discharge planning issues: Status: Acute Assessment and plan: Full code. Continues to require hospitalization. Subjective Subjective Interval history since last seen: S/p I&D of superficial L ankle abscess - no septic joint. The patient reports pain in L ankle. Endorses dizziness, denies chest pain, shortness of breath, nausea. Hungry. Exam Narrative Exam Narrative: General: female who is slightly tremulous, does appear uncomfortable, A&Ox3 HEENT: EOMI, MMM Heart: RRR, tachycardic, no m/r/g Lungs: CTAB Abdomen: soft, nontender, nondistended Extremities: no edema RLE; L ankle is dressed - c/d/i Objective Last Vital Signs Temp 36.4 C L 12/17/20 16:10 Pulse 76 12/17/20 16:10 Resp 20 12/17/20 16:10 BP 125/64 12/17/20 16:10 Pulse Ox 94 12/17/20 16:10 Laboratory Results - last 24 hr 12/16/20 12/16/20 12/16/20 20:40 20:40 20:40 WBC 15.46 H RBC 4.24 Hgb 11.9 Hct 36.5 MCV 86.1 MCH 28.1 MCHC 32.6 RDW 13.6 Plt Count 288 MPV 10.8 Immature Gran % 0.5 Neutrophils % 77.2 Lymphocytes % 16.7 Monocytes % 5.1 Eosinophils % 0.2 Basophils % 0.3 Nucleated RBC % 0 Absolute Neutrophils 11.94 H Absolute Lymphocytes 2.58 Absolute Monocytes 0.79 Absolute Eosinophils 0.03 Absolute Basophils 0.05 VBG Lactate 0.9 Sodium 137 Potassium 3.2 L Chloride 100 Carbon Dioxide 27.4 Anion Gap 9.6 BUN 16 Creatinine 0.8 Estimated GFR/1.73 m2 >= 60.00 Glucose 87 Calcium 9.1 Total Bilirubin 1.0 Conjugated Bilirubin AST 257 H ALT 444 H Alkaline Phosphatase 98 C-Reactive Protein 2.87 H Total Protein 8.7 H Albumin 3.8 Urine HCG, Qual Urine Opiates Screen Urine Methadone Screen Ur Barbiturates Screen Ur Tricyclics Screen Ur Amphetamines Screen U Benzodiazepines Scrn Urine Cocaine Screen Ur THC Screen COVID-19 Source SARS-CoV-2 (PCR) 12/16/20 12/16/20 12/17/20 21:34 23:10 10:48 WBC RBC Hgb Hct MCV MCH MCHC RDW Plt Count MPV Immature Gran % Neutrophils % Lymphocytes % Monocytes % Eosinophils % Basophils % Nucleated RBC % Absolute Neutrophils Absolute Lymphocytes Absolute Monocytes Absolute Eosinophils Absolute Basophils VBG Lactate Sodium Potassium Chloride Carbon Dioxide Anion Gap BUN Creatinine Estimated GFR/1.73 m2 Glucose Calcium Total Bilirubin Cancelled Conjugated Bilirubin Cancelled AST Cancelled ALT Cancelled Alkaline Phosphatase Cancelled C-Reactive Protein Total Protein Cancelled Albumin Cancelled Urine HCG, Qual Negative Urine Opiates Screen Urine Methadone Screen Ur Barbiturates Screen Ur Tricyclics Screen Ur Amphetamines Screen U Benzodiazepines Scrn Urine Cocaine Screen Ur THC Screen COVID-19 Source Nasal/Nares SARS-CoV-2 (PCR) Negative 12/17/20 10:48 WBC RBC Hgb Hct MCV MCH MCHC RDW Plt Count MPV Immature Gran % Neutrophils % Lymphocytes % Monocytes % Eosinophils % Basophils % Nucleated RBC % Absolute Neutrophils Absolute Lymphocytes Absolute Monocytes Absolute Eosinophils Absolute Basophils VBG Lactate Sodium Potassium Chloride Carbon Dioxide Anion Gap BUN Creatinine Estimated GFR/1.73 m2 Glucose Calcium Total Bilirubin Conjugated Bilirubin AST ALT Alkaline Phosphatase C-Reactive Protein Total Protein Albumin Urine HCG, Qual Urine Opiates Screen Positive A Urine Methadone Screen Negative Ur Barbiturates Screen Negative Ur Tricyclics Screen Negative Ur Amphetamines Screen Negative U Benzodiazepines Scrn Negative Urine Cocaine Screen Positive A Ur THC Screen Negative COVID-19 Source SARS-CoV-2 (PCR)
[2020-12-17 17:13] LABS: Abs Immature Grans 0.07 10^3/uL (0.0-0.06); Absolute Monocyte Count 0.31 10^3/uL (0.1-0.8); Absolute Neutrophil Count 11.06 10^3/uL (1.2-6.7); Basophils % 0.2; HCT 32.1 % (36.0-46.0); HGB 10.4 g/dL (11.2-15.7); Immature Grans % 0.5; MCH 27.9 pg (27.0-33.0); MCHC 32.4 % (32.0-36.0); MCV 86.1 fL (80-95); MPV 11.4 fL (8.0-11.0); Monocytes % 2.4; Neutrophils % 85.9; Nucleated RBC 0 %; Platelet Count 264 10^3/uL (130-400); RBC 3.73 10^6/uL (3.93-5.22); RDW 13.6 % (11.7-14.6); WBC 12.87 10^3/uL (4.4-10.8)
[2020-12-17 17:14] LABS: Lactate 0.8 mmol/L (0.6-1.4)
[2020-12-17 17:20] LABS: Absolute Basophil Count 0.03 10^3/uL (0.0-0.2); Absolute Lymphocyte Count 1.42 10^3/uL (1.2-3.4)
[2020-12-17 17:29] LABS: ALT 344 U/L (14-59); AST 149 U/L (15-37)
[2020-12-17 17:32] LABS: Creatine Kinase 30 U/L (26-192)
--- NOTE | 2020-12-17 17:36 | NUR.NOTE ---
Nursing Note: 1630 cows is 0 but patient is back from surgery and is still sedated
[2020-12-17 17:40] LABS: Magnesium 2.1 mg/dL (1.8-2.4)
[2020-12-17 17:42] LABS: Acetaminophen < 2 ug/mL (10-30)
[2020-12-17 17:48] LABS: Anion Gap 7.7 mmol/L (3-11); BUN 14 mg/dL (7-18); C-Reactive Protein 5.63 mg/dL (0.0-0.3); CO2 27.3 mmol/L (21.0-32.0); CREATININE 0.7 mg/dL (0.55-1.02); Calcium 8.4 mg/dL (8.5-10.1); Chloride 105 mmol/L (98-107); Glucose 104 mg/dL (74-106); Potassium 3.8 mmol/L (3.5-5.1); Sodium 140 mmol/L (136-145)
[2020-12-17] MEDS: VANCOMYCIN/WATER (PEG) 1 GM/200 ML BAG IV (18:07)
[2020-12-17] MEDS: hydrOXYzine PAMOATE 25 MG CAP 50 MG PO (18:07)
[2020-12-17 18:23] LABS: Procalcitonin 6.6 ng/mL
[2020-12-17] MEDS: Normal Saline 500 ML 30 ML IVPB (20:20)
[2020-12-17] MEDS: Gabapentin 100 MG CAP PO (20:20)
[2020-12-17] MEDS: Normal Saline Flush 10 ML SYR IVP (22:51)
[2020-12-18] MEDS: cloNIDine 0.1 MG TAB PO ×2 (00:46→05:41)
[2020-12-18] MEDS: hydrOXYzine PAMOATE 25 MG CAP 50 MG PO ×2 (00:46→08:58)
[2020-12-18] MEDS: PIPERACILLIN/TAZO 3.375 GM in Normal Saline 50 ML IVPB ×2 (02:14→08:59)
[2020-12-18] MEDS: VANCOMYCIN/WATER (PEG) 1 GM/200 ML BAG IV ×2 (02:52→09:55)
[2020-12-18] MEDS: HYDROmorphone 2 MG/ML VIAL IVP ×2 (03:58→09:56)
[2020-12-18] MEDS: Normal Saline Flush 10 ML SYR IVP ×3 (05:41→12:48)
[2020-12-18] MEDS: Ketorolac 15 MG/ML VIAL IVP ×2 (05:41→12:48)
[2020-12-18] MEDS: Lactated Ringers 1,000 ML 100 ML IV (06:35)
[2020-12-18 07:04] LABS: ESR 35 mm/hr (0-20)
[2020-12-18 07:07] LABS: Abs Immature Grans 0.12 10^3/uL (0.0-0.06); Absolute Basophil Count 0.01 10^3/uL (0.0-0.2); Absolute Lymphocyte Count 1.41 10^3/uL (1.2-3.4); Absolute Monocyte Count 0.79 10^3/uL (0.1-0.8); Absolute Neutrophil Count 12.05 10^3/uL (1.2-6.7); Basophils % 0.1; HCT 32.8 % (36.0-46.0); HGB 10.7 g/dL (11.2-15.7); Immature Grans % 0.8; Lymphocytes % 9.8; MCH 27.2 pg (27.0-33.0); MCHC 32.6 % (32.0-36.0); MCV 83.5 fL (80-95); MPV 11.4 fL (8.0-11.0); Monocytes % 5.5; Neutrophils % 83.8; Nucleated RBC 0 %; Platelet Count 268 10^3/uL (130-400); RBC 3.93 10^6/uL (3.93-5.22); RDW 13.4 % (11.7-14.6); WBC 14.38 10^3/uL (4.4-10.8)
[2020-12-18 07:19] LABS: Anion Gap 5.6 mmol/L (3-11); BUN 12 mg/dL (7-18); C-Reactive Protein 4.71 mg/dL (0.0-0.3); CO2 27.4 mmol/L (21.0-32.0); CREATININE 0.7 mg/dL (0.55-1.02); Calcium 8.3 mg/dL (8.5-10.1); Chloride 107 mmol/L (98-107); Glucose 137 mg/dL (74-106); Potassium 3.5 mmol/L (3.5-5.1); Sodium 140 mmol/L (136-145)
[2020-12-18 08:02] VITALS: BP 124/82; PULSE 71; RESP 18; TEMP 36.8; O2SAT 97
[2020-12-18] MEDS: Dicyclomine 10 MG CAP PO (08:58)
[2020-12-18] MEDS: Gabapentin 100 MG CAP PO (08:59)
[2020-12-18 10:38] LABS: Vancomycin, Trough 11.1 ug/mL (10.0-20.0)
--- NOTE | 2020-12-18 10:54 | W.PM.PROGNOT ---
Date of Service Date of service: 12/18/20 Time of Service: 10:54 Assessment and Plan Assessment and plan (1) Cutaneous abscess of left ankle: Status: Acute Assessment and plan: Dressing is intact and dry of the left ankle. Plan will be do perform a dressing change and remove the drain tomorrow. Nursing staff was updated and pain medication will be coordinated with dressing change to try to minimize pain for this procedure. Subjective Subjective Patient reports: pain is less Interval history since last seen: Vee does not fully arouse when having a conversation about her left ankle. She is able to say that she feels slightly better than she did prior to her I&D of her left ankle, but continues to complain of pain and asks for more medication throughout the visit. After talking with her nurse, this appears to be baseline for her. Exam Extrem Other: Brief exam of her left ankle with dressing still on shows that she does have some swelling in her forefoot, although it is soft and warm to touch. Capillary refill is normal. She complains of pain throughout the exam. Dressing is dry with no soiled areas. Dressing is not taken down today for exam of incision. Objective Last Vital Signs Temp 98.2 F 12/18/20 08:02 Pulse 71 12/18/20 08:02 Resp 18 12/18/20 08:02 BP 124/82 12/18/20 08:02 Pulse Ox 97 12/18/20 08:02 Laboratory Results - last 24 hr 12/17/20 12/17/20 12/17/20 10:48 10:48 17:00 WBC RBC Hgb Hct MCV MCH MCHC RDW Plt Count MPV Immature Gran % Neutrophils % Lymphocytes % Monocytes % Eosinophils % Basophils % Nucleated RBC % Absolute Neutrophils Absolute Lymphocytes Absolute Monocytes Absolute Eosinophils Absolute Basophils ESR VBG Lactate Sodium Potassium Chloride Carbon Dioxide Anion Gap BUN Creatinine Estimated GFR/1.73 m2 Glucose Calcium Magnesium AST 149 H ALT 344 H Creatine Kinase C-Reactive Protein Procalcitonin Urine HCG, Qual Negative Vancomycin Trough Urine Opiates Screen Positive A Urine Methadone Screen Negative Acetaminophen Ur Barbiturates Screen Negative Ur Tricyclics Screen Negative Ur Amphetamines Screen Negative U Benzodiazepines Scrn Negative Urine Cocaine Screen Positive A Ur THC Screen Negative 12/17/20 12/17/20 12/17/20 17:00 17:00 17:00 WBC RBC Hgb Hct MCV MCH MCHC RDW Plt Count MPV Immature Gran % Neutrophils % Lymphocytes % Monocytes % Eosinophils % Basophils % Nucleated RBC % Absolute Neutrophils Absolute Lymphocytes Absolute Monocytes Absolute Eosinophils Absolute Basophils ESR VBG Lactate 0.8 Sodium 140 Potassium 3.8 Chloride 105 Carbon Dioxide 27.3 Anion Gap 7.7 BUN 14 Creatinine 0.7 Estimated GFR/1.73 m2 >= 60.00 Glucose 104 Calcium 8.4 L Magnesium 2.1 AST ALT Creatine Kinase C-Reactive Protein 5.63 H Procalcitonin 6.6 Urine HCG, Qual Vancomycin Trough Urine Opiates Screen Urine Methadone Screen Acetaminophen Ur Barbiturates Screen Ur Tricyclics Screen Ur Amphetamines Screen U Benzodiazepines Scrn Urine Cocaine Screen Ur THC Screen 12/17/20 12/17/20 12/18/20 17:00 17:00 06:38 WBC 12.87 H RBC 3.73 L Hgb 10.4 L Hct 32.1 L MCV 86.1 MCH 27.9 MCHC 32.4 RDW 13.6 Plt Count 264 MPV 11.4 H Immature Gran % 0.5 Neutrophils % 85.9 Lymphocytes % 11.0 Monocytes % 2.4 Eosinophils % 0.0 Basophils % 0.2 Nucleated RBC % 0 Absolute Neutrophils 11.06 H Absolute Lymphocytes 1.42 Absolute Monocytes 0.31 Absolute Eosinophils 0.00 Absolute Basophils 0.03 ESR VBG Lactate Sodium 140 Potassium 3.5 Chloride 107 Carbon Dioxide 27.4 Anion Gap 5.6 BUN 12 Creatinine 0.7 Estimated GFR/1.73 m2 >= 60.00 Glucose 137 H Calcium 8.3 L Magnesium 2.0 AST ALT Creatine Kinase 30 C-Reactive Protein 4.71 H Procalcitonin Urine HCG, Qual Vancomycin Trough Urine Opiates Screen Urine Methadone Screen Acetaminophen < 2 Ur Barbiturates Screen Ur Tricyclics Screen Ur Amphetamines Screen U Benzodiazepines Scrn Urine Cocaine Screen Ur THC Screen 12/18/20 12/18/20 12/18/20 06:38 06:38 10:10 WBC 14.38 H RBC 3.93 Hgb 10.7 L Hct 32.8 L MCV 83.5 MCH 27.2 MCHC 32.6 RDW 13.4 Plt Count 268 MPV 11.4 H Immature Gran % 0.8 Neutrophils % 83.8 Lymphocytes % 9.8 Monocytes % 5.5 Eosinophils % 0.0 Basophils % 0.1 Nucleated RBC % 0 Absolute Neutrophils 12.05 H Absolute Lymphocytes 1.41 Absolute Monocytes 0.79 Absolute Eosinophils 0.00 Absolute Basophils 0.01 ESR 35 H VBG Lactate Sodium Potassium Chloride Carbon Dioxide Anion Gap BUN Creatinine Estimated GFR/1.73 m2 Glucose Calcium Magnesium AST ALT Creatine Kinase C-Reactive Protein Procalcitonin Urine HCG, Qual Vancomycin Trough 11.1 Urine Opiates Screen Urine Methadone Screen Acetaminophen Ur Barbiturates Screen Ur Tricyclics Screen Ur Amphetamines Screen U Benzodiazepines Scrn Urine Cocaine Screen Ur THC Screen
--- NOTE | 2020-12-18 13:43 | NUR.NOTE ---
Nursing Note: 12/18/20 4530- pt expressed desire to leave pt stated I want to go home, you guys are not treating my withdrawl or my pain. Relayed message to charge nurse and primary RN. Pt took herself off the spo2 monitor, pt declined to put it back on at this time. Charge nurse and primary nurse notified.
--- NOTE | 2020-12-18 13:54 | DSE_ITS ---
Date of service: 12/18/20 Time of Service: 13:55 DS: Diagnosis Discharge Diagnosis (1) Sepsis: Status: Acute (2) Cutaneous abscess of left ankle: Status: Acute (3) Cellulitis of left ankle: Status: Acute (4) Closed fracture of left distal fibula: Status: Acute (5) IV drug abuse: Status: Acute (6) Opioid withdrawal: Status: Acute (7) COVID-19 ruled out by laboratory testing: Status: Ruled-out Discharge Plan Disposition Patient Disposition: AGAINST MEDICAL ADVICE Condition: Serious Discharge Details Reason For Visit: ankle abcess Admit Date/Time: 12/16/20 22:48 Admit Provider: Charles De Dios Attending Provider: Charles De Dios Primary Care Provider: Gianna Montemayor Hospital Course Hospital Course: Ms Artis is a 34 year old female with PMHx of IV drug abuse (opiates, amphetamines, cocaine), hepatitis C, who was admitted to [facility] hospitalist service on 12/16/20 with sepsis due to cellulitis and subcutaneous abscess of L ankle joint post injection of fentanyl in the area (recreationally). Additionally, she was found to have a nondisplaced fracture of the fibula/The patient was initiated on empiric broad spectrum antibiotics after I&D was performed in the ED. Wound culture from that grew polymicrobial micah. The patient was maintained on vancomycin and zosyn and went to the OR for I&D of the abscess by orthopedics on 12/17/20. Dr Branham found that the abscess was superficial and that the joint was not involved. The patient's blood cultures are negative to date but she continues to have leucocytosis and to be febrile. Speciation on her wound cultures is not yet back. The patient was receiving high dose IV dilaudid for her pain as well as IV toradol and treatment for her opioid withdrawal including clonidine, hydroxyzine, antiemetics, antidiarrheal. Because the author of this note would not comply with her request for IV fentanyl specifically, the patient elected to leave against medical advice today, verbalizing understanding that we are not sure what her cultures are growing yet and therefore there are no guarantees that the empiric antibiotics will work and that there is a potential that she could . The patient pulled out her midline and took off her dressing and left AMA today. Prescription for levaquin was sent to [facility] [id number] in [facility]. Care for patient as well as completion of her discharge summary on day of discharge took 35 minutes. Home Meds and New Rx's Prescriptions: New levofloxacin 750 mg tablet 750 mg PO DAILY Qty: 10 RF: 0 Discharge Instructions Referrals: Gianna Montemayor [Primary Care Provider] - Activity:: Activity as Tolerated Equipment/Supplies:: No Equipment Needed Diet:: As Tolerated Discharge Orders Discharge Orders: Discharge Order (Routine); Ordered 12/18/20 Ordered By: Sylvia Werner Discharge Data Discharge Date/Time-TO BE ENTERED AT DEPARTURE: 12/18/20 14:32 DS: Summary Time Spent with Patient providing and/or coordinating discharge services: Greater than 30 minutes Status at Discharge Functional status at discharge: independent ambulation Overall status at discharge: patient is not back to baseline Mental Status: mental status grossly normal Speech and Movement: agitated Mood: anxious mood Affect: labile affect Exam Narrative Exam Narrative: General: female who is tremulous, uncomfortable, A&Ox3 HEENT: EOMI, MMM Heart: not auscultated Lungs: nonlabored breathing Abdomen: soft, nontender, nondistended Extremities: no edema RLE; L ankle is dressed - c/d/i Psych Mental Status: mental status grossly normal Speech and Movement: agitated Mood: anxious mood Affect: labile affect DS: Data Vitals/I&O Vitals and I&O: Vital Signs Temperature 36.8 C 12/18/20 08:02 Temperature Source Temporal Artery Scan 12/18/20 08:02 Pulse 71 12/18/20 08:02 Pulse Rhythm Regular 12/18/20 02:24 Respiratory Rate 18 12/18/20 08:02 Respiratory Effort Non-Labored 12/18/20 02:24 Respiratory Depth Normal 12/18/20 02:24 Respiratory Pattern Normal 12/18/20 02:24 Blood Pressure 124/82 12/18/20 08:02 Blood Pressure Mean 85 12/16/20 22:02 Blood Pressure Position Sitting 12/16/20 18:14 Pulse Oximetry 97 12/18/20 08:02 Oxygen Delivery Method Room Air 12/18/20 08:02 Oxygen Flow Rate 0 12/18/20 08:02 Pain Level 8 12/18/20 12:48 Comment 12/17/20 05:43 Intake & Output 12/17/20 12/18/20 12/18/20 23:59 11:59 23:59 Intake Total 2040.5 / 3090.5 820 / 820 Output Total 800 / 1200 750 / 750 Balance 1240.5 / 1890.5 70 / 70 Weight 57 kg Intake: IV 1320.5 / 2370.5 250 / 250 Oral 720 / 720 570 / 570 Output: Urine 800 / 1200 750 / 750 Other: Urine Color Yellow Pale Yellow Light Yisel Urine Appearance Clear Cloudy Urine Odor Normal Strong Emesis Description None Voiding Methods Bedside Commode Bedside Commode Data Completed and Pending Completed studies during hospitalization [Text1]: XR L LE: Question of nondisplaced fracture of the lateral malleolus.. Labs on day of discharge: Labs from last 24 hours 12/18/20 12/18/20 12/18/20 10:10 06:38 06:38 WBC 14.38 H RBC 3.93 Hgb 10.7 L Hct 32.8 L MCV 83.5 MCH 27.2 MCHC 32.6 RDW 13.4 Plt Count 268 MPV 11.4 H Immature Gran % 0.8 Neutrophils % 83.8 Lymphocytes % 9.8 Monocytes % 5.5 Eosinophils % 0.0 Basophils % 0.1 Nucleated RBC % 0 Absolute Neutrophils 12.05 H Absolute Lymphocytes 1.41 Absolute Monocytes 0.79 Absolute Eosinophils 0.00 Absolute Basophils 0.01 ESR 35 H VBG Lactate Sodium Potassium Chloride Carbon Dioxide Anion Gap BUN Creatinine Estimated GFR/1.73 m2 Glucose Calcium Magnesium AST ALT Creatine Kinase C-Reactive Protein Procalcitonin Vancomycin Trough 11.1 Acetaminophen Hepatitis A IgM Ab Hep Bs Antigen Hep B Core Total Ab Hepatitis C Antibody HIV 1&2 Ag/Ab, 4th Gen 12/18/20 12/17/20 12/17/20 06:38 17:00 17:00 WBC 12.87 H RBC 3.73 L Hgb 10.4 L Hct 32.1 L MCV 86.1 MCH 27.9 MCHC 32.4 RDW 13.6 Plt Count 264 MPV 11.4 H Immature Gran % 0.5 Neutrophils % 85.9 Lymphocytes % 11.0 Monocytes % 2.4 Eosinophils % 0.0 Basophils % 0.2 Nucleated RBC % 0 Absolute Neutrophils 11.06 H Absolute Lymphocytes 1.42 Absolute Monocytes 0.31 Absolute Eosinophils 0.00 Absolute Basophils 0.03 ESR VBG Lactate Sodium 140 Potassium 3.5 Chloride 107 Carbon Dioxide 27.4 Anion Gap 5.6 BUN 12 Creatinine 0.7 Estimated GFR/1.73 m2 >= 60.00 Glucose 137 H Calcium 8.3 L Magnesium 2.0 AST ALT Creatine Kinase 30 C-Reactive Protein 4.71 H Procalcitonin Vancomycin Trough Acetaminophen < 2 Hepatitis A IgM Ab Hep Bs Antigen Hep B Core Total Ab Hepatitis C Antibody HIV 1&2 Ag/Ab, 4th Gen 12/17/20 12/17/20 12/17/20 17:00 17:00 17:00 WBC RBC Hgb Hct MCV MCH MCHC RDW Plt Count MPV Immature Gran % Neutrophils % Lymphocytes % Monocytes % Eosinophils % Basophils % Nucleated RBC % Absolute Neutrophils Absolute Lymphocytes Absolute Monocytes Absolute Eosinophils Absolute Basophils ESR VBG Lactate 0.8 Sodium 140 Potassium 3.8 Chloride 105 Carbon Dioxide 27.3 Anion Gap 7.7 BUN 14 Creatinine 0.7 Estimated GFR/1.73 m2 >= 60.00 Glucose 104 Calcium 8.4 L Magnesium 2.1 AST ALT Creatine Kinase C-Reactive Protein 5.63 H Procalcitonin 6.6 Vancomycin Trough Acetaminophen Hepatitis A IgM Ab Hep Bs Antigen Hep B Core Total Ab Hepatitis C Antibody HIV 1&2 Ag/Ab, 4th Gen 12/17/20 12/17/20 12/17/20 17:00 17:00 17:00 WBC RBC Hgb Hct MCV MCH MCHC RDW Plt Count MPV Immature Gran % Neutrophils % Lymphocytes % Monocytes % Eosinophils % Basophils % Nucleated RBC % Absolute Neutrophils Absolute Lymphocytes Absolute Monocytes Absolute Eosinophils Absolute Basophils ESR VBG Lactate Sodium Potassium Chloride Carbon Dioxide Anion Gap BUN Creatinine Estimated GFR/1.73 m2 Glucose Calcium Magnesium AST 149 H ALT 344 H Creatine Kinase C-Reactive Protein Procalcitonin Vancomycin Trough Acetaminophen Hepatitis A IgM Ab Pending Hep Bs Antigen Pending Hep B Core Total Ab Pending Hepatitis C Antibody Pending HIV 1&2 Ag/Ab, 4th Gen Pending 12/17/20 15:45 Ankle - Left Anaerobic Culture - Pending 12/16/20 06:45 Ankle - Left Anaerobic Culture - Pending Preliminary micro results at discharge 12/16/20 23:12 Wound Culture - Preliminary Ankle - Left Gram Positive Micah Gram Positive Micah#2 12/17/20 15:45 Surgical Culture - Preliminary Ankle - Left Gram Positive Micah Gram Positive Micah#2 12/16/20 20:40 Blood Culture - Preliminary Blood NO GROWTH 24 HOURS 12/17/20 15:45 Anaerobic Culture - Pending Ankle - Left 12/16/20 06:45 Anaerobic Culture - Pending Ankle - Left [facility] Medical History (Updated 12/18/20 @ 14:04 by Sylvia Werner MD) IV drug abuse Surgical History (Updated 12/18/20 @ 14:04 by Sylvia Werner MD) Cutaneous abscess of left ankle S/P I& Social History Smoking/Tobacco Use Status: Current every day Smoking risk assessment performed?: Yes Alcohol Intake: never Drug use: Daily Substance use type: heroin, opiates and inhalants Details: smokes fentanyl Do you feel safe at home: Yes Do you feel safe in your relationship?: Yes
--- NOTE | 2020-12-18 14:47 | CMPROGNOTE_ITS ---
Care Management Progress Note Vee left AMA. CM attempted to discuss, Etta stated I'm withdrawing and no one around here gives a shit. She stated she couldn't walk and requested a phone with messenger on it to message a friend for a ride. She stated she wanted to leave as soon as possible. Dr. Werner reported Vee would be provided a boot prior to leaving. CM requested transport through [facility].
--- NOTE | 2020-12-18 15:43 | NUR.NOTE ---
Nursing Note: Patient is signing out ama, at approximately 1400 nurse went into patients room to discontinue her mid line,iv and the pen carlo drain from her left ankle. The patient was sitting in the chair and dressed and told the nurse that another nurse had already come in and removed her iv's and her pen carlo drain from her left ankle. Nurse removed the ankle dressing and the pen carlo was not removed and at that time removed the pen carlo and placed a sterile 4x4 dressing no active bleeding noted and replaced the kerlex and radha wrap. Nurse checked with staff and no one had been in to remove IV's went back in and there was no IV in her left ac( I could not fine cath in room and the mid line was in place covered with a gauze. Patient was holding her arm down and I asked to see her iv and she reached down and pulled the mid line out and the site was bleeding stating I dont need it any way. Nurse applied pressure and held til bleeding stopped. Mid line cath was intact. Patient signed ama papers and she awaiting for her ride
--- NOTE | 2020-12-19 08:40 | PT.INNT ---
Date of service: 12/19/20 Time of Service: 08:40 PT Notes Visit Reasons: ankle abcess No skilled services provided for this admission, patient left facility against medical advice on 12/18/2020. Thank you for the opportunity to participate in the care of this patient. Mirna Villar PT, DPT, CLT [facility] [place], [place]
[2020-12-19 10:01] LABS: HIV-1/2 Ag & Ab Screen Negative (Negative)
[2020-12-19 10:15] LABS: Hepatitis A Antibody IgM Negative (Negative); Hepatitis B Core Antibody Negative (Negative); Hepatitis B surface Ag Negative (Negative); Hepatitis C Ab w Rflx HCV PCR Reactive (Negative)
[2020-12-20 14:08] LABS: HCV RNA Detection Quantitative 3340000 IU/mL (Undetected); HCV RNA Qualitative Detected (Undetected)
== END 2020-12-18 14:32 | disposition left against medical advice (07) | DRG 854 ==
LOC: ER 23:07 → MS 12-17 00:36
PROVIDERS: Internal Medicine; Student in an Organized Health Care Education/Training Program; Admitting Provider General Practice; Emergency Provider Physician Assistant; PCP Nurse Practitioner Family; Visit Provider General Practice
PROC: 0J9P0ZZ Drainage of Left Lower Leg Subcutaneous Tissue and Fascia, Open Approach (ICD-10-PCS; CPT 10060; principal; 2020-12-17 15:00)
DX: A41.9 Sepsis, unspecified organism; L02.416 Cutaneous abscess of left lower limb; F11.20 Opioid dependence, uncomplicated; L03.116 Cellulitis of left lower limb; F11.23 Opioid dependence with withdrawal; F19.10 Other psychoactive substance abuse, uncomplicated; F17.210 Nicotine dependence, cigarettes, uncomplicated; S82.832A Other fracture of upper and lower end of left fibula, initial encounter for closed fracture; X58.XXXA Exposure to other specified factors, initial encounter; Z20.822 Contact with and (suspected) exposure to COVID-19
CPT/HCPCS: 10060; 11042; 36415; 80048; 80053; 80076; 80307; 82550; 84145; 85652; 86704; 86709; 86803; 87040; 87077; 87340; 87389; 87522; 87635; 96365; 96375; 96376; 99285; 73610; 80202; 80329; 81025; 83605; 83735; 84450; 84460; 85025; 86140; 87070; 87075; 87186; 87205; 99222; 99232; 99239; J0131; J1100; J1885; J2250; J2405; J2543; J2704; J3010

== ENCOUNTER 2021-09-12 20:32 | Emergency (ER) | payer MEDICAID, SELFPAY ==
[2021-09-12 20:45] VITALS: BP 144/89; PULSE 89; RESP 20; TEMP 36.8; O2SAT 100
--- NOTE | 2021-09-12 20:50 | ED.GENADUL_ITS ---
Discharge Plan Disposition Patient Disposition: HOME Discharge Details Clinical Impression: MRSA (methicillin resistant Staphylococcus aureus) Primary Care Provider: [place],Local ED Provider: Neri Escoto Home Meds and New Rx's Prescriptions: New sulfamethoxazole-trimethoprim [Bactrim DS] 800-160 mg tablet 1 tab PO BID Qty: 14 0RF No Action levofloxacin 750 mg tablet 750 mg PO DAILY Qty: 10 0RF Discharge Instructions Additional Instructions: please follow upwith your doctors as scheduled return if any concerns Medical Decision Making Given that the patient is undergoing chemotherapy for her stage IV lung cancer, I recommended that we repeat some blood work. Patient adamantly declined blood work stating that she is a hard stick and with did not have blood work because he had a BX she is well-appearing, I acquiesces to her request HPI General Date/Time Provider Initiated Documentation: 09/12/21 20:33 . HPI Narrative: 35-year-old lady presents to the emergency department requesting antibiotics for a flareup of her MRSA skin infection . She states that approx one week ago she developed some boils on her gluteal area nd face. No f c Severity moderate. No relieving factors. No aggravating factors. No associated factors Related Data Home Medications Medication Instructions Recorded Confirmed levofloxacin 750 mg tablet 750 mg PO DAILY #10 tab 12/18/20 sulfamethoxazole 800 1 tab PO BID #14 tab 09/12/21 mg-trimethoprim 160 mg tablet (Bactrim DS) Previous Rx's Medication Instructions Recorded levofloxacin 750 mg tablet 750 mg PO DAILY #10 tab 12/18/20 sulfamethoxazole 800 1 tab PO BID #14 tab 09/12/21 mg-trimethoprim 160 mg tablet (Bactrim DS) Allergies Allergy/AdvReac Type Severity Reaction Status Date / Time aspirin Allergy Mild Hives Unverified 09/12/21 20:48 codeine [Codeine] Allergy Mild Hives Unverified 09/12/21 20:48 General Stated Complaint: RashLesion CORY: 3 Review of Systems Constitutional Comments: Constitutional negative for fever and chills positive for malaise and fatigue HEENT negative Cardiovascular no palpitations no chest pain Respiratory chronic smoker's cough as well and is shortness of breath unresponsive to treatment. No hemoptysis she states that she is at baseline. GI no nausea no vomiting abdominal pain or diarrhea negative MSK negative Skin see HPI Neuro no headaches Psych negative Hematological PFSH All Active Problems (Updated 09/12/21 @ 21:06 by Neri Escoto MD) MRSA (methicillin resistant Staphylococcus aureus) (Acute) IV drug abuse (Acute) Opioid withdrawal (Acute) Cutaneous abscess of left ankle (Acute) S/P I& Cellulitis of left ankle (Acute) Sepsis (Acute) Discharge planning issues (Acute) DVT prophylaxis (Acute) Intractable pain (Acute) Closed fracture of left distal fibula (Acute) Social History Smoking/Tobacco Use Status: Current every day Tobacco Type: cigarettes Smoking risk assessment performed?: Yes Alcohol Intake: never Drug use: Current Sobriety Substance use type: former substance user Details: Almost a year sober. Do you feel safe at home: Yes Do you feel safe in your relationship?: Yes Exam Narrative Exam Narrative: Exam Narrative: General: A&Ox3, calm, pleasant, looks HEENT: EOMI, MMM Heart: not auscultated Lungs: nonlabored breathing, bilateral wheezing. Normal work of breathing Abdomen: soft, nontender, nondistended Extremities: no edema RLE Skin: healing abscesses on the gluteal areas B, no fluctance no dc Psych Mental Status:?mental status grossly normal Course Vital Signs Vital signs: Vital Signs Temperature 36.8 C 09/12/21 20:45 Pulse 89 09/12/21 20:45 Respiratory Rate 20 09/12/21 20:45 Blood Pressure 144/89 H 09/12/21 20:45 Pulse Oximetry 100 09/12/21 20:45 Temperature 36.8 C 09/12/21 20:45 Temperature Source Skin 09/12/21 20:45 Pulse 89 09/12/21 20:45 Respiratory Rate 20 09/12/21 20:45 Blood Pressure 144/89 H 09/12/21 20:45 Blood Pressure Position Sitting 09/12/21 20:45 Pulse Oximetry 100 09/12/21 20:45 Oxygen Delivery Method Room Air 09/12/21 20:45 Oxygen Flow Rate 0 09/12/21 20:45 Pain Level 7 09/12/21 20:45
[2021-09-12 21:28] VITALS: BP 144/89; PULSE 89; RESP 20; TEMP 36.8; O2SAT 100
== END 2021-09-12 21:10 | disposition home or self-care (01) ==
PROVIDERS: Emergency Provider Emergency Medicine
DX: L02.32 Furuncle of buttock (principal); L02.02 Furuncle of face; B95.62 Methicillin resistant Staphylococcus aureus infection as the cause of diseases classified elsewhere; Z79.899 Other long term (current) drug therapy
CPT/HCPCS: 99283

== ENCOUNTER 2021-11-07 15:48 | Emergency (ER) | payer MEDICAID, SELFPAY ==
[2021-11-07 15:53] VITALS: BP 158/98; PULSE 100; RESP 18; TEMP 36.4; O2SAT 100
--- NOTE | 2021-11-07 16:13 | NUR.NOTE ---
Nursing Note: In to room to establish IV access. Pt is tearful, states shes scared and wants a cigarette and to talk to her mom. Urged pt to use cell phone in room to contact mom and nicotine replacement products offered. Pt denies wanting any nicotine replacement products, state the patch shes allergic to and the others make her throat swell. PA updated at pt wants to leave the department to smoke and at bedside at this time.
--- NOTE | 2021-11-07 20:56 | ED.GENADUL_ITS ---
Discharge Plan Disposition Patient Disposition: AGAINST MEDICAL ADVICE Condition: Serious Discharge Details Clinical Impression: Abscess, neck Primary Care Provider: Unknown,Unknown ED Provider: Laura Mcfadden Home Meds and New Rx's Prescriptions: No Action levofloxacin 750 mg tablet 750 mg PO DAILY Qty: 10 0RF levofloxacin 750 mg tablet 750 mg PO DAILY 7 Days Qty: 7 0RF Discharge Data Discharge Date/Time-TO BE ENTERED AT DEPARTURE: 11/07/21 16:14 Medical Decision Making Patient was agreeable to And laboratory assessment, CT was ordered, patient became very agitated and states that she cannot stay in the hospital as she feels panic attack coming on She was offered Ativan which she declined The IV was removed and patient left AGAINST MEDICAL ADVICE She was in the room with her significant other and she was made aware regarding the risk associated with her decision to leave against her medical re commendation She is discharged from the emergency department AGAINST MEDICAL ADVICE, fully alert, oriented, of decisional capacity at time of my assessment Medical Records Medical records reviewed: Yes I reviewed the patient's medical records. HPI General Date/Time Provider Initiated Documentation: 11/07/21 15:50 . HPI Narrative: This 35-year-old female with history of IV drug abuse and cellulitis presents with report of injection into left jugular 2 days prior to arrival with subsequent redness and swelling. Patient states that I am having difficulty swallowing . She denies any fever or chills. She last used fentanyl this m orning at approximately 9 AM. She denies any chest pain or shortness of breath. She denies chance of . She denies any speech, strength, or sensation change. She states she has pain with opening her jaw. She denies any headache or dizziness. She uses fentanyl, approximately 2 g daily reportedly. Related Data Home Medications Medication Instructions Recorded Confirmed levofloxacin 750 mg tablet 750 mg PO DAILY #10 tabs 12/18/20 levofloxacin 750 mg tablet 750 mg PO DAILY 7 days #7 tabs 11/07/21 Previous Rx's Medication Instructions Recorded levofloxacin 750 mg tablet 750 mg PO DAILY #10 tabs 12/18/20 levofloxacin 750 mg tablet 750 mg PO DAILY 7 days #7 tabs 11/07/21 Allergies Allergy/AdvReac Type Severity Reaction Status Date / Time aspirin Allergy Mild Hives Unverified 09/12/21 20:48 codeine [Codeine] Allergy Mild Hives Unverified 09/12/21 20:48 General Stated Complaint: Cellulitis CORY: 4 Review of Systems All systems reviewed & are unremarkable except as noted in HPI and below PFSH All Active Problems (Updated 11/07/21 @ 21:04 by LAURA Vera) Abscess, neck (Acute) IV drug abuse (Acute) Opioid withdrawal (Acute) Cutaneous abscess of left ankle (Acute) S/P I& Cellulitis of left ankle (Acute) Sepsis (Acute) Discharge planning issues (Acute) DVT prophylaxis (Acute) Intractable pain (Acute) Closed fracture of left distal fibula (Acute) Social History Smoking/Tobacco Use Status: Current every day Tobacco Type: cigarettes Smoking risk assessment performed?: Yes Alcohol Intake: never Drug use: Occasionally Substance use type: heroin and IV drugs Details: Last used fentanyl this am Do you feel safe at home: Yes Do you feel safe in your relationship?: Yes Exam Const General: cooperative, comfortable and no acute distress Eyes Pupils: PERRL Neck Neck images: 1. numerous track jennifer 2. 3x3 indurated area without fluctuance no carotid bruit 6 inches surround cellulitis Chest Chest/axillae images: 1. erythema Resp Effort & Inspection: normal respiratory effort Auscultation: clear to auscultation bilaterally Cardio Rate: tachycardic Rhythm: regular rhythm Heart Sounds: no murmurs Other: distal pulses intact Skin Other: cellulitis noted as described above Neuro General: patient alert and patient oriented x3 Extrem Other: distal pulses intact Course Vital Signs Vital signs: Vital Signs Temperature 36.4 C L 11/07/21 15:53 Pulse 100 H 11/07/21 15:53 Respiratory Rate 18 11/07/21 15:53 Blood Pressure 158/98 H 11/07/21 15:53 Pulse Oximetry 100 11/07/21 15:53 Temperature 36.4 C L 11/07/21 15:53 Temperature Source Skin 11/07/21 15:53 Pulse 100 H 11/07/21 15:53 Respiratory Rate 18 11/07/21 15:53 Blood Pressure 158/98 H 11/07/21 15:53 Blood Pressure Position Sitting 11/07/21 15:53 Pulse Oximetry 100 11/07/21 15:53 Oxygen Delivery Method Room Air 11/07/21 15:53 Oxygen Flow Rate 0 11/07/21 15:53
== END 2021-11-07 16:14 | disposition left against medical advice (07) ==
LOC: ER 16:01
PROVIDERS: Emergency Provider Physician Assistant
DX: L02.11 Cutaneous abscess of neck (principal); R45.1 Restlessness and agitation; Z53.20 Procedure and treatment not carried out because of patient's decision for unspecified reasons; F17.210 Nicotine dependence, cigarettes, uncomplicated; R00.0 Tachycardia, unspecified
CPT/HCPCS: 99281; 99282

== ENCOUNTER 2021-11-07 17:02 | Emergency (ER) | payer MEDICAID, SELFPAY ==
--- NOTE | 2021-11-07 17:00 | DI.CT_ITS ---
Exam(s) CT NECK W EXAM: CT NECK W CLINICAL HISTORY: injecting into neck , mass around anterior neck,. TECHNIQUE: Imaging Protocol: Axial CT angiography was performed with multi-slice acquisition and mu lti-planar and/or 3D reconstructions. CONTRAST MATERIAL: Intravenous: Omnipaque 350 Contrast volume:structured data in ml COMPARISON: CT HEAD NECK FACIAL WO from 10/07/2017 FINDINGS: There is soft tissue swelling and findings consistent with abscess in the left side of the neck betwe en the medial border of the sternocleidomastoid muscle and strap muscles and with edema extending up into the submandibular region of the left side. Mildly enlarged ipsilateral lymph nodes in the neck. Nasopharynx: Unremarkable Oropharynx: Unremarkable. Hypopharynx: Valleculae and aryepiglottic folds appear unremarkable. There is no swelling in the pre vertebral tissues. Free edge of the epiglottis appears unremarkable. Vocal cords and subglottic airway: Unremarkable. Thyroid gland: Unremarkable. Salivary glands: The left submandibular gland is surrounded by edema from the abscess in the left denisa e of the neck. No other focal findings in the submandibular and parotid glands. Visualized lungs: Unremarkable. IMPRESSION: 1. Left anterior neck abscess between the medial border of the sternocleidomastoid and the left strap muscles, with edema tracking superiorly into the ipsilateral submandibular region. This edema surro unds the left submandibular gland. RADIATION DOSE DELIVERED: 497.64mGy.cm Total DLP DATA REPOSITORY: All CT scans at this facility are submitted to the National Radiology Data Registry (NRDR) Dose Index Registry (DIR) with the [employer] (A[employer]). RADIATION OPTIMIZATION: All CT scans at this facility use at least one of these dose optimization te chniques: automated exposure control; mA and/or kV adjustment per patient size (includes targeted exa ms where dose is matched to clinical indication); or iterative reconstruction.
[2021-11-07 17:46] LABS: Lactate 0.8 mmol/L (0.6-1.4)
[2021-11-07 17:49] LABS: Abs Immature Grans 0.03 10^3/uL (0.0-0.06); Absolute Basophil Count 0.04 10^3/uL (0.0-0.2); Absolute Eosinophil Count 0.09 10^3/uL (0.0-0.7); Absolute Lymphocyte Count 3.06 10^3/uL (1.2-3.4); Absolute Monocyte Count 0.74 10^3/uL (0.1-0.8); Absolute Neutrophil Count 5.47 10^3/uL (1.2-6.7); Basophils % 0.4; HCT 35.9 % (36.0-46.0); HGB 11.4 g/dL (11.2-15.7); Immature Grans % 0.3; Lymphocytes % 32.4; MCH 26.8 pg (27.0-33.0); MCHC 31.8 % (32.0-36.0); MCV 84 fL (80-95); MPV 11.3 fL (8.0-11.0); Monocytes % 7.8; Neutrophils % 58.1; Platelet Count 196 10^3/uL (130-400); RBC 4.26 10^6/uL (3.93-5.22); RDW 14.7 % (11.7-14.6); RDW-SD 45.2 fL; WBC 9.43 10^3/uL (4.4-10.8)
[2021-11-07 18:00] VITALS: BP 130/76
[2021-11-07] MEDS: Omnipaque 350 MG/ML 100 ML BTL IJ (18:01)
[2021-11-07 18:03] VITALS: PULSE 79; RESP 15; O2SAT 98
[2021-11-07 18:07] LABS: ALT 33 U/L (14-59); AST 21 U/L (15-37); Albumin 3.4 g/dL (3.4-5.0); Alkaline Phosphatase 92 U/L (46-116); Anion Gap 5.3 mmol/L (3-11); BUN 18 mg/dL (7-18); Bilirubin, Total 0.3 mg/dL (0.2-1.0); CO2 29.7 mmol/L (21.0-32.0); CREATININE 0.8 mg/dL (0.55-1.02); Calcium 8.7 mg/dL (8.5-10.1); Chloride 102 mmol/L (98-107); Glucose 90 mg/dL (74-106); Potassium 3.5 mmol/L (3.5-5.1); Sodium 137 mmol/L (136-145); Total Protein 8.3 g/dL (6.4-8.2)
[2021-11-07 18:10] VITALS: PULSE 82; RESP 17; O2SAT 98
--- NOTE | 2021-11-07 18:20 | DI.VRAD_ITS ---
PROCEDURE INFORMATION: Exam: CT Neck With Contrast Exam date and time: 11/07/2021 5:44 PM Age: 35 years old Clinical indication: Other: Injecting into neck , mass around anterior neck, TECHNIQUE: Imaging protocol: Computed tomography of the neck with contrast. Contrast material: 350; Contrast volume: 90 ml; Contrast route: INTRAVENOUS (IV); COMPARISON: CT HEAD NECK FACIAL WO 10/07/2017 5:44 AM FINDINGS: Pharynx: Only remarkable for slight low-density edema facing the left hypopharynx /piriform sinus axial image 43 secondary to edema in the adjacent submandibular space. There is mild symmetrical tonsillar enlargement. Larynx: Unremarkable. Epiglottis is normal. Prevertebral and retropharyngeal spaces: Trace amount of edema in the retropharynx appears to be minimally reactive to the left-sided neck process, edema tracking superiorly into the submandibular fossa. Salivary glands: Normal. Glands are normal in size. Thyroid: Normal. No enlarged or calcified nodules. No evidence for thyroid abscess. Lymph nodes: Unremarkable. No significant lymphadenopathy. Largest definable node is a left level 5 spinal accessory jugular station image 36, 9 mm. Probably mildly reactive enhancing node of 10 mm nearby axial image 36 left level 3 jugular station. Trachea: Visualized trachea is unremarkable. Lungs: Unremarkable as visualized. Bones/joints: Unremarkable. No acute fracture. Soft tissues: Remarkable for left anterior neck rim enhancing fluid collection about 13 mm diameter axial image 32 series 3 at the cricoid level, between the strap muscles and medial border of the sternocleidomastoid. Fat planes are effaced with hazy density due to phlegmon/cellulitis. This is compatible with abscess. Edema tracks superiorly to the submandibular fossa IMPRESSION: Left anterior neck cricoid level abscess between the medial border of the sternocleidomastoid and left strap muscles, with florid edema tracking superiorly into the submandibular fossa. Dictated and Authenticated by: Wilbert Viera MD. Ordering:ANAI Sanchez MD
--- NOTE | 2021-11-07 18:44 | ED.GENADUL_ITS ---
Discharge Plan Disposition Patient Disposition: AGAINST MEDICAL ADVICE Condition: Serious Discharge Details Clinical Impression: IV drug abuse, Abscess, neck Primary Care Provider: Unknown,Unknown ED Provider: Laura Mcfadden Home Meds and New Rx's Prescriptions: No Action levofloxacin 750 mg tablet 750 mg PO DAILY Qty: 10 0RF levofloxacin 750 mg tablet 750 mg PO DAILY 7 Days Qty: 7 0RF Discharge Data Discharge Date/Time-TO BE ENTERED AT DEPARTURE: 11/07/21 18:43 Medical Decision Making Of note, this was patient's second visit to the emergency department No additional physical exam findings noted IV placed for CT soft tissue neck which displays a superficial abscess per radiology interpretation Dr. Peters was consulted and patient has refused surgical intervention at this time in fact she became so frustrated that she has to have her IV removed and be discharged from the hospital She is again leaving AGAINST MEDICAL ADVICE She is fully alert, oriented, of decisional capacity and her partner is in the room and aware that she is making vision HPI General Date/Time Provider Initiated Documentation: 11/07/21 17:10 . HPI Narrative: 35-year-old female with history of IV drug abuse presents for a second visit after leaving AGAINST MEDICAL ADVICE her neck abscess. She denies any new complaints at this time Related Data Home Medications Medication Instructions Recorded Confirmed levofloxacin 750 mg tablet 750 mg PO DAILY #10 tabs 12/18/20 levofloxacin 750 mg tablet 750 mg PO DAILY 7 days #7 tabs 11/07/21 Previous Rx's Medication Instructions Recorded levofloxacin 750 mg tablet 750 mg PO DAILY #10 tabs 12/18/20 levofloxacin 750 mg tablet 750 mg PO DAILY 7 days #7 tabs 11/07/21 Allergies Allergy/AdvReac Type Severity Reaction Status Date / Time aspirin Allergy Mild Hives Unverified 09/12/21 20:48 codeine [Codeine] Allergy Mild Hives Unverified 09/12/21 20:48 General Stated Complaint: Cellulitis CORY: 2 Review of Systems Narrative: See initial note PFSH All Active Problems (Updated 11/07/21 @ 22:29 by LAURA Vera) Abscess, neck (Acute) IV drug abuse (Acute) Opioid withdrawal (Acute) Cutaneous abscess of left ankle (Acute) S/P I& Cellulitis of left ankle (Acute) Sepsis (Acute) Discharge planning issues (Acute) DVT prophylaxis (Acute) Intractable pain (Acute) Closed fracture of left distal fibula (Acute) Social History Smoking/Tobacco Use Status: Current every day Tobacco Type: cigarettes Smoking risk assessment performed?: Yes Alcohol Intake: never Drug use: Occasionally Substance use type: heroin and IV drugs Details: Last used fentanyl this am Do you feel safe at home: Yes Do you feel safe in your relationship?: Yes Exam Const Other: Please review initial medical Course Vital Signs Vital signs: Vital Signs Blood Pressure 130/76 11/07/21 18:00 Pulse 82 11/07/21 18:10 Respiratory Rate 17 11/07/21 18:10 Respiratory Effort Non-Labored 11/07/21 17:44 Blood Pressure 130/76 11/07/21 18:00 Pulse Oximetry 98 11/07/21 18:10 Lab/Test Results Lab/Test Results: 11/07/21 17:35 Blood Blood Culture - Pending 11/07/21 17:10 Blood Blood Culture - Pending Laboratory Tests Range/Units 11/07/21 11/07/21 11/07/21 17:35 17:35 17:35 WBC (4.4-10.8) 10^3/uL 9.43 RBC (3.93-5.22) 10^6/uL 4.26 Hgb (11.2-15.7) g/dL 11.4 Hct (36.0-46.0) % 35.9 L MCV (80-95) fL 84 MCH (27.0-33.0) pg 26.8 L MCHC (32.0-36.0) % 31.8 L RDW (11.7-14.6) % 14.7 H Plt Count (130-400) 10^3/uL 196 MPV (8.0-11.0) fL 11.3 H Immature Gran % 0.3 Neutrophils % 58.1 Lymphocytes % 32.4 Monocytes % 7.8 Eosinophils % 1.0 Basophils % 0.4 Nucleated RBC % (0.0-0.3) % 0.0 Absolute Neutrophils (1.2-6.7) 10^3/uL 5.47 Absolute Lymphocytes (1.2-3.4) 10^3/uL 3.06 Absolute Monocytes (0.1-0.8) 10^3/uL 0.74 Absolute Eosinophils (0.0-0.7) 10^3/uL 0.09 Absolute Basophils (0.0-0.2) 10^3/uL 0.04 VBG Lactate (0.6-1.4) mmol/L 0.8 Sodium (136-145) mmol/L 137 Potassium (3.5-5.1) mmol/L 3.5 Chloride (98-107) mmol/L 102 Carbon Dioxide (21.0-32.0) mmol/L 29.7 Anion Gap (3-11) mmol/L 5.3 BUN (7-18) mg/dL 18 Creatinine (0.55-1.02) mg/dL 0.8 Estimated GFR/1.73 m2 (mL/min/1.73m2) >= 60.00 Glucose (74-106) mg/dL 90 Calcium (8.5-10.1) mg/dL 8.7 Total Bilirubin (0.2-1.0) mg/dL 0.3 AST (15-37) U/L 21 ALT (14-59) U/L 33 Alkaline Phosphatase (46-116) U/L 92 Total Protein (6.4-8.2) g/dL 8.3 H Albumin (3.4-5.0) g/dL 3.4
== END 2021-11-07 18:43 | disposition left against medical advice (07) ==
LOC: ER 17:05
PROVIDERS: Emergency Provider Physician Assistant
DX: L02.11 Cutaneous abscess of neck (principal); Z53.29 Procedure and treatment not carried out because of patient's decision for other reasons; F11.20 Opioid dependence, uncomplicated
CPT/HCPCS: 36415; 70491; 80053; 87040; 99285; 83605; 85025; 99281; J3490

== ENCOUNTER 2021-11-07 19:44 | Emergency (ER) | payer MEDICAID, SELFPAY ==
[2021-11-07 19:55] VITALS: BP 148/97; PULSE 103; RESP 18; TEMP 36.2; O2SAT 100
[2021-11-07] MEDS: levoFLOXacin 500 MG, levoFLOXacin 250 MG 750 MG PO (20:32)
--- NOTE | 2021-11-07 22:39 | ED.GENADUL_ITS ---
Discharge Plan Disposition Patient Disposition: HOME Condition: Stable Discharge Details Clinical Impression: IV drug abuse, Abscess, neck Primary Care Provider: Unknown,Unknown ED Provider: Laura Mcfadden Home Meds and New Rx's Prescriptions: New levofloxacin 750 mg tablet 750 mg PO DAILY 7 Days Qty: 7 0RF No Action levofloxacin 750 mg tablet 750 mg PO DAILY Qty: 10 0RF Discharge Instructions Instructions: Abscess (ED) Additional Instructions: You are leaving against our medical recommendation, you are at risk for further compromise and even Take the antibiotic as prescribed return at your earliest ability Medical Decision Making Patient was reassessed in the emergency department for the third time, we talked about appropriate use of the emergency department and our wish to admit patient for surgical intervention, patient is refusing to stay in the hospital but is willing to take antibiotics at this time She is aware that she is at risk for further deterioration and even . Patient is fully competent to make decision She was initiated on Levaquin which she has been previously susceptible to I reviewed her prior documentation I reviewed her note from her discharge AGAINST MEDICAL ADVICE approximately an hour prior to presentation She states that she will return to the emergency department in the morning for reassessment Medical Records Medical records reviewed: Yes I reviewed the patient's medical records. Lab Data Lab results reviewed: Yes I reviewed the patient's lab results. HPI General Date/Time Provider Initiated Documentation: 11/07/21 20:10 . HPI Narrative: This patient is a 35-year-old female with history of IV drug abuse, cellulitis, sepsis who presents for neck rash. She states she injected into her jugular vein 2 days ago and developed pain and swelling shortly thereafter. Denies fever or chills. Denies chance of . IV fentanyl user. Uses 2 g a day. Denies any dizziness or weakness. Please see prior documentation for additional history. Of note this is patient's third visit and a 3-hour time Related Data Home Medications Medication Instructions Recorded Confirmed levofloxacin 750 mg tablet 750 mg PO DAILY #10 tabs 12/18/20 levofloxacin 750 mg tablet 750 mg PO DAILY 7 days #7 tabs 11/07/21 Previous Rx's Medication Instructions Recorded levofloxacin 750 mg tablet 750 mg PO DAILY #10 tabs 12/18/20 levofloxacin 750 mg tablet 750 mg PO DAILY 7 days #7 tabs 11/07/21 Allergies Allergy/AdvReac Type Severity Reaction Status Date / Time aspirin Allergy Mild Hives Unverified 09/12/21 20:48 codeine [Codeine] Allergy Mild Hives Unverified 09/12/21 20:48 General Stated Complaint: Recheck CORY: 4 Review of Systems All systems reviewed & are unremarkable except as noted in HPI and below PFSH All Active Problems (Updated 11/07/21 @ 22:29 by LAURA Vera) Abscess, neck (Acute) IV drug abuse (Acute) Opioid withdrawal (Acute) Cutaneous abscess of left ankle (Acute) S/P I& Cellulitis of left ankle (Acute) Sepsis (Acute) Discharge planning issues (Acute) DVT prophylaxis (Acute) Intractable pain (Acute) Closed fracture of left distal fibula (Acute) Social History Smoking/Tobacco Use Status: Current every day Tobacco Type: cigarettes Smoking risk assessment performed?: Yes Alcohol Intake: never Drug use: Occasionally Substance use type: heroin and IV drugs Details: Last used fentanyl this am Do you feel safe at home: Yes Do you feel safe in your relationship?: Yes Exam Const General: anxious Orientation: alert Neck Neck images: 1. Abscess and cellulitis Resp Effort & Inspection: normal respiratory effort Auscultation: clear to auscultation bilaterally Cardio Rate: regular rate Rhythm: regular rhythm Heart Sounds: murmur Course Vital Signs Vital signs: Vital Signs Temperature 36.2 C L 11/07/21 19:55 Pulse 103 H 11/07/21 19:55 Respiratory Rate 18 11/07/21 19:55 Blood Pressure 148/97 H 11/07/21 19:55 Pulse Oximetry 100 11/07/21 19:55 Temperature 36.2 C L 11/07/21 19:55 Temperature Source Skin 11/07/21 19:55 Pulse 103 H 11/07/21 19:55 Respiratory Rate 18 11/07/21 19:55 Blood Pressure 148/97 H 11/07/21 19:55 Pulse Oximetry 100 11/07/21 19:55 Pain Level 8 11/07/21 19:55
== END 2021-11-07 20:40 | disposition home or self-care (01) ==
PROVIDERS: Emergency Provider Physician Assistant
DX: L02.11 Cutaneous abscess of neck (principal); L03.221 Cellulitis of neck; F11.10 Opioid abuse, uncomplicated; F17.210 Nicotine dependence, cigarettes, uncomplicated
CPT/HCPCS: 99283

== ENCOUNTER 2021-11-08 20:32 | Emergency (ER) | payer MEDICAID, SELFPAY ==
--- NOTE | 2021-11-08 20:46 | NUR.NOTE ---
Pt refusing to enter triage without boyfriend. Pt was informed that the triage room was small and they could both be together after triage. Pt continued to refused. Pt left without being seen.
== END 2021-11-08 20:49 | disposition left before discharge ==
DX: Z53.21 Procedure and treatment not carried out due to patient leaving prior to being seen by health care provider (principal)

== ENCOUNTER 2021-11-13 17:52 | Emergency (ER) | payer MEDICAID, SELFPAY ==
[2021-11-13 17:59] VITALS: BP 144/89; PULSE 102; RESP 18; TEMP 36.8; O2SAT 98
[2021-11-13] MEDS: Sulfameth/Trimeth DS, 2 TABS/BTL 1 TAB PO (18:26)
--- NOTE | 2021-11-13 20:26 | ED.GENADUL_ITS ---
Discharge Plan Disposition Patient Disposition: HOME Condition: Stable Discharge Details Clinical Impression: Abscess, neck Primary Care Provider: Unknown,Unknown ED Provider: Laura Mcfadden Home Meds and New Rx's Prescriptions: New sulfamethoxazole-trimethoprim [Bactrim DS] 800-160 mg tablet 1 tab PO BID 10 Days Qty: 20 0RF Discontinued levofloxacin 750 mg tablet 750 mg PO DAILY Qty: 10 0RF levofloxacin 750 mg tablet 750 mg PO DAILY 7 Days Qty: 7 0RF Discharge Instructions Instructions: Abscess (ED) Additional Instructions: Warm compresses Antibiotic until completed wash with soap and water daily change dressing daily Yogurt daily while on antibiotic Keep up the good work!!!! Medical Decision Making Wick removed by me Dressing applied Bactrim prescription supplied Discharged home in stable condition with stable vital Return precautions discussed and patient expressed understanding Medical Records Medical records reviewed: Yes I reviewed the patient's medical records. Lab Data Lab results reviewed: Yes I reviewed the patient's lab results. HPI General Date/Time Provider Initiated Documentation: 11/13/21 17:53 . HPI Narrative: This 35-year-old female history of IV drug abuse presents status post incision and drainage of abscess from patient's neck. Denies any fever or chills. States that drainage occurred 4 days ago and patient was supposed to be taking antibiotics and was removed, however she did not remove the wrist nor started antibiotics. She states she could not find the prescription she was given. She did establish care at methadone clinic and has not injected for the past several days. She denies any chance of . She is overall feeling improvement. Related Data Home Medications Medication Instructions Recorded Confirmed sulfamethoxazole 800 1 tab PO BID 10 days #20 tabs 11/13/21 mg-trimethoprim 160 mg tablet (Bactrim DS) Previous Rx's Medication Instructions Recorded sulfamethoxazole 800 1 tab PO BID 10 days #20 tabs 11/13/21 mg-trimethoprim 160 mg tablet (Bactrim DS) Allergies Allergy/AdvReac Type Severity Reaction Status Date / Time aspirin Allergy Mild Hives Unverified 09/12/21 20:48 codeine [Codeine] Allergy Mild Hives Unverified 09/12/21 20:48 General Stated Complaint: Cellulitis CORY: 3 Review of Systems All systems reviewed & are unremarkable except as noted in HPI and below PFSH All Active Problems (Updated 11/13/21 @ 18:26 by LAURA Vera) Abscess, neck (Acute) IV drug abuse (Acute) Opioid withdrawal (Acute) Cutaneous abscess of left ankle (Acute) S/P I& Cellulitis of left ankle (Acute) Sepsis (Acute) Discharge planning issues (Acute) DVT prophylaxis (Acute) Intractable pain (Acute) Closed fracture of left distal fibula (Acute) Social History Smoking/Tobacco Use Status: Current every day Tobacco Type: cigarettes Smoking risk assessment performed?: Yes Alcohol Intake: never Drug use: Occasionally Substance use type: heroin and IV drugs Do you feel safe at home: Yes Do you feel safe in your relationship?: Yes Exam Const General: cooperative, comfortable and no acute distress [facility] Head images: 1. Approximately 5 mm incision, no drainage, no surrounding erythema, no crepitus Course Vital Signs Vital signs: Vital Signs Temperature 36.8 C 11/13/21 17:59 Pulse 102 H 11/13/21 17:59 Respiratory Rate 18 11/13/21 17:59 Blood Pressure 144/89 H 11/13/21 17:59 Pulse Oximetry 98 11/13/21 17:59 Temperature 36.8 C 11/13/21 17:59 Temperature Source Temporal Artery Scan 11/13/21 17:59 Pulse 102 H 11/13/21 17:59 Respiratory Rate 18 11/13/21 17:59 Respiratory Effort 11/13/21 18:34 Blood Pressure 144/89 H 11/13/21 17:59 Blood Pressure Position Sitting 11/13/21 17:59 Pulse Oximetry 98 11/13/21 17:59 Oxygen Delivery Method Room Air 11/13/21 17:59 Oxygen Flow Rate 0 11/13/21 17:59
== END 2021-11-13 18:30 | disposition home or self-care (01) ==
PROVIDERS: Emergency Provider Physician Assistant
DX: L02.11 Cutaneous abscess of neck (principal)
CPT/HCPCS: 99283

== ENCOUNTER 2022-11-18 16:05 | Inpatient (IN) | payer MEDICAID, SELFPAY ==
[2022-11-18 16:04] VITALS: BP 111/72; PULSE 70; RESP 18; TEMP 36.8; O2SAT 96
--- NOTE | 2022-11-18 16:07 | ED.GENADUL_ITS ---
Discharge Plan Disposition Patient Disposition: Admit to [facility] Discharge Details Clinical Impression: Septic prepatellar bursitis of right knee Primary Care Provider: Unknown,Unknown ED Provider: Shai Daniels Home Meds and New Rx's Prescriptions: No Action No Known Home Meds Medical Decision Making This is a chronically ill normothermic and not tachycardic 36-year-old female with right knee pain swelling and history of reported MRSA infection and prepatellar septic bursitis with concern for recurrence septic bursitis versus bacteremia. Based on patient's history I am concerned for the possibility of sepsis so I ordered 2 sets of blood cultures, lactate, and will treat empirically with 2 g ceftriaxone and vancomycin at 20 cc/kg. Cellulitis is certainly likely. Will order ESR and CRP. No pain out of proportion to suggest necrotizing soft tissue infection. Given significant pain and limited range of motion with swelling there is certainly a possibility of a septic joint. Patient is certainly at increased risk for abscess and septic joint secondary to history of IV drug use. Patient is able to range her leg slightly and given past complicated history of infection will defer arthrocentesis at this point time as I do not want to introduce any possible infection. Anticipate touching base with orthopedics following plain films joint. There is certainly a possibility that patient may go on to need an MRI however will defer this decision to orthopedics orthopedics following plain films. No history of dislocation to suggest need for CT angiogram as my suspicion for popliteal arterial injury is low. No calf tenderness to suggest DVT so I did not feel that the patient required a duplex study.Right foot warm and well-perfused so not concern for critical limb ischemia. 4:50 PM Per records faxed from [place] ED patient was seen on November 23. She had plain films of her knee showing soft tissue swelling. She had her prepatellar bursa aspirated and received dalbavancin given her history of MRSA. Her knee was placed in a cast and Micky wrap. The ED provider made note of a Gram stain which came back positive for gram-positive cocci in pairs and clusters with 55,000 white cells, 33,000 red cells and 90% polymorphs consistent with septic breath otitis. On-call orthopedics was consulted from the ED in [place]. Plan was for follow-up as an outpatient. Patient never followed up with orthopedics. 6:20 PM I spoke with Dr. Branham from the orthopedic team who advised hospitalization for IV antibiotics. He will see the patient in the morning. I will keep patient n.p.o. in the event that she requires surgical intervention upon orthopedic assessment in the morning. I spoke with Dr. Howe who graciously agreed to accept the patient for hospitalization. Patient's labs show a microcytic anemia. Mildly elevated ESR. Normal lactate. No KRISTIE. Not . 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 HPI Narrative: This is a 36-year-old female with history of IV drug use and hepatitis C who reportedly cut the top of her right knee last month. She reportedly had increased pain over the past several days and came to the emergency department today via EMS. She is in police custody. Patient has a history of substance abuse opiate abuse and bacteremia. Patient was reportedly hospitalized in August at [place] for 1 week. She has a history of multiple MRSA infections. She has had no recurrent trauma today. She reports last using IV drug 3 days ago when she used heroin and crack cocaine which she injects. She also takes 20 mg of Suboxone which she gets on the street. She denies any routine ethanol. She is endorses chills and vomiting.No dysuria nor frequency. Related Data Home Medications Medication Instructions Recorded Confirmed Unknown [No Known Home Meds] 11/18/22 11/18/22 Allergies Allergy/AdvReac Type Severity Reaction Status Date / Time aspirin Allergy Mild Hives Unverified 11/18/22 16:08 codeine [Codeine] Allergy Mild Hives Unverified 11/18/22 16:08 General Stated Complaint: Cellulitis CORY: 3 PFSH All Active Problems Septic prepatellar bursitis of right knee (Acute) IV drug abuse (Acute) Opioid withdrawal (Acute) Cutaneous abscess of left ankle (Acute) S/P I& Cellulitis of left ankle (Acute) Sepsis (Acute) Discharge planning issues (Acute) DVT prophylaxis (Acute) Intractable pain (Acute) Closed fracture of left distal fibula (Acute) Social History Smoking/Tobacco Use Status: Current every day Tobacco Type: cigarettes Smoking risk assessment performed?: Yes Alcohol Intake: never Drug use: Occasionally Substance use type: heroin and IV drugs Details: 3 days ago used heroin & crack Do you feel safe at home: Yes Do you feel safe in your relationship?: Yes Exam Narrative Exam Narrative: General: Chronically ill-appearing in no acute distress speaking in complete sentences. Head: Normocephalic, atraumatic. Eye: Pupils equal, round reactive to light. Extraocular eye movements intact. No conjunctival injection. No scleral icterus. Ear, nose, mouth, throat: Grossly normal inspection. Normal voice, handling secretions normally. Neck: Trachea midline. Cardiovascular: Well-perfused distal extremities. Respiratory: Nonlabored respiration. Gastrointestinal: Nondistended abdomen. Musculoskeletal: Right knee with moderate prepatellar swelling and mild warmth compared to left knee. Knee is held in extension. Patient is able to flex her right knee to approximately 20 degrees limited secondarily to pain. Mild swelling throughout tibia and foot. 2+ right radial pulse. 3-5 strength dorsi and plantarflexion on the right. Intact sensation in the dorsal webspace between the right great and second toe. Plantar aspects of patient's feet bilaterally dirty. Skin: Normal for age and race, grossly normal temperature and turgor. No acute rash. Neurologic: Alert and appropriate, no apparent acute deficits. Psychiatric: Mood and manner are appropriate. Grooming and personal hygiene are appropriate. Course Vital Signs Vital signs: Vital Signs Temperature 36.8 C 11/18/22 16:04 Pulse 70 11/18/22 16:04 Respiratory Rate 18 11/18/22 16:04 Blood Pressure 111/72 11/18/22 16:04 Pulse Oximetry 96 11/18/22 16:04 Temperature 36.8 C 11/18/22 16:04 Pulse 70 11/18/22 16:04 Respiratory Rate 18 11/18/22 16:04 Blood Pressure 111/72 11/18/22 16:04 Blood Pressure Position Supine 11/18/22 16:04 Pulse Oximetry 96 11/18/22 16:04 Oxygen Delivery Method Room Air 11/18/22 16:04 Oxygen Flow Rate 0 11/18/22 16:04 Pain Level 8 11/18/22 16:04
--- NOTE | 2022-11-18 16:09 | NUR.NOTE ---
Nursing Note: PT states that she last used heroin and crack 2 days ago. Has also been using buprenorphine off the streets about 21mg a day. States she has been using fentynal on the streets for pain management of her knee infection.
--- NOTE | 2022-11-18 16:15 | DI.RAD_ITS ---
Exam(s) XR KNEE RT 3V AP,LAT,ONEIL EXAM: XR KNEE RT 3V AP,LAT,ONEIL CLINICAL HISTORY: Right knee pain. TECHNIQUE: 2D digital imaging was performed. COMPARISON: No exams were available for comparison FINDINGS: 3 views There is prominent soft tissue swelling over the patella. No radiopaque foreign body at this level. No evidence of patellar fracture nor other fractures in the knee. There is no obvious knee joint eff usion. No degenerative changes in the knee joint. No joint space narrowing. No osseous lesions. N o radiographic evidence of osteomyelitis. IMPRESSION: Prominent prepatellar swelling but no acute osseous findings. Also no evidence of obvious knee joint effusion. DATA REPOSITORY: RADIATION DOSE DELIVERED:
[2022-11-18] MEDS: ACETAMINOPHEN 1,000 MG/100 ML BTL 400 MG IVPB (17:11)
[2022-11-18] MEDS: Nicotine 21 MG/24 HR PATCH TD (17:13)
[2022-11-18] MEDS: cefTRIAXone 2 GM/50 ML BAG IVPB (17:13)
[2022-11-18 17:14] LABS: ESR 41 mm/hr (0-20)
[2022-11-18 17:16] LABS: Abs Immature Grans 0.02 10^3/uL (0.0-0.06); Absolute Basophil Count 0.04 10^3/uL (0.0-0.2); Absolute Eosinophil Count 0.08 10^3/uL (0.0-0.7); Absolute Lymphocyte Count 2.93 10^3/uL (1.2-3.4); Absolute Monocyte Count 0.73 10^3/uL (0.1-0.8); Absolute Neutrophil Count 3.01 10^3/uL (1.2-6.7); Basophils % 0.6; Eosinophils % 1.2; HCT 32.6 % (36.0-46.0); HGB 10.4 g/dL (11.2-15.7); Immature Grans % 0.3; MCH 26.6 pg (27.0-33.0); MCHC 31.9 % (32.0-36.0); MCV 83 fL (80-95); MPV 11.1 fL (8.0-11.0); Monocytes % 10.7; Neutrophils % 44.2; Platelet Count 228 10^3/uL (130-400); RBC 3.91 10^6/uL (3.93-5.22); RDW 14.3 % (11.7-14.6); RDW-SD 43.5 fL; WBC 6.81 10^3/uL (4.4-10.8)
[2022-11-18 17:20] LABS: Lactate 0.6 mmol/L (0.6-1.4)
[2022-11-18 17:29] LABS: HCG Qual (Serum) Negative
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
--- OUTSIDE RECORDS SUMMARY | 2022-11-18 17:36 | XMS_ITS | Continuity of Care Document ---
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 Relevant Diagnostic Tests and/or Laboratory Data No known relevant diagnostic tests, laboratory data, and/or discharge summary. Advance Directives Advance Directive Response Recorded Date/ Time Do we have a copy on file here at [facility] [place]? No August 14, 2019 7:16pm Does patient have an Advanced Directive? No August 14, 2019 7:16pm Pt has a Living Will? No August 13 7:16pm Pt has a Power of Boat Canvas Maker Installer? No Apri l 2019 7:16pm Hospital Discharge Instructions No known hospital discharge instructions. Hospital Discharge Medications Medication Dose Units Route Sig Qty Days Order Date Status Instructions Ondansetron Apri l 2019 Active Dexmethylphenidate MG ORAL August 14, 2019 Active Buprenorphine-Naloxone August 14, 2019 Active Sulfamethoxazole-Trime thoprim 1 TAB ORAL TWICE A DAY August 14, 2019 Active Phenazopyridine 200 MG ORAL THREE TIMES A DAY PRN For pain August 14, 2019 Active Encounters Encounter Facility Location Admit/Visit Date Discharge/Departure Date Attending Provider Departed Emergency [facility] August 14, 2019 7:09pm August 14, 2019 7:58pm Functional Status Query Response Date Recorded Comment Living Situation With Significant Other August 14, 2019 7:36pm Immunizations No known immunizations. Payers Payer Name Policy Type Covered Republican Covered Republican Id Relationship Subscriber Subscriber Id [employer] [place] Medicaid LACEY VALDEZ [id number] Self/Same as Patient LACEY VALDEZ [id number] SELF PAY Personal Plan of Care Instructions COVID 19 General Instruction s- decrease the spread of coronavirus Social History Query Response Date Recorded Comment Alcohol Use Yes August 14, 2019 7:36pm Smoking Status Current every day smoker August 14, 2019 7:36pm alcohol intake frequency a few times a month August 14, 2019 7:36pm substance use type marijuana August 14, 2019 7:36pm Query Response Start Date Stop Date Smoking Status Current every day smoker Vital Signs Vital [place] Result Reference Range Collection Date/Time Height n/a Weight 60.328 kg August 14, 2019 7 :27pm Temperature 98.4 F 97.6 F-99.6 F August 14, 2019 7:27pm Pulse 88 BPM 60-100 August 14, 2019 7 :27pm Respiration 16 RPM 12-24 August 14, 2019 7 :27pm Pulse Oximetry 98 % 95-100 August 14, 2019 7:27pm Blood Pressure Systolic 120 100-140 Apri l 2019 7:27pm Blood Pressure Diastolic 72 50-85 Apr il 2019 7:27pm Body Mass Index n/a
--- OUTSIDE RECORDS SUMMARY | 2022-11-18 17:36 | XMS_ITS | Continuity of Care Document ---
Author Name [facility] Address [address] [place] [address] Organization [facility] Address [address] [place] [address] Care Team Providers Care Drafter Construction Name Role Phone Out of Town, Provider [...] pain August 14, 2019 Active Problem List Inactive/Resolved Problems Medical Problem Onset Date Status Acute cystitis with hematuria In active Procedures Procedure Date Status Urine Culture August 14, 2019 completed Relevant Diagnostic Tests and/or Laboratory Data Microbiology Results Procedure Source Result Collection Date/Time Resu lt Date/Time Urine Culture Ur,Clean Catch No results entered August 13 7:56pm Advance Directives Advance Directive Response Recorded Date/ Time Do we [place] [facility] [place] August 14, 2019 7:16pm Does patient have an Advanced Directive? No August 14, 2019 7:16pm Pt has a Living Will? No August 13 7:16pm Pt has a Power of Security Police? No Apri 2019 7:16pm Hospital Discharge Instructions No known [...] Date Discharge/Departure Date Attending Provider Departed Emergency [facility] August 14, 2019 7:09pm August 14, 2019 7:58pm Functional Status Query Response Date Recorded Comment Living Situation With Significant Other August 14, 2019 7:36pm Immunizations No known immunizations. Payers Payer Name Policy Type Covered Republican Covered Republican Id Relationship Subscriber Subscriber Id [employer] [place] Medicaid LACEY VALDEZ [id number] Self/Same as Patient LACEY VALDEZ [id number] SELF PAY Personal Plan of Care Instructions [...]
--- OUTSIDE RECORDS SUMMARY | 2022-11-18 17:36 | XMS_ITS | Continuity of Care Document ---
Author Name [facility] Address [address] [place] [address] [facility] Address [address] [place] [address] Care Team Providers Care Manufacturing Area Manager Name Role Phone Out of Town, Provider [...] have a copy on file here at [facility] [place]? No August 14, 2019 7:16pm Does patient have an Advanced Directive? No August 14, 2019 7:16pm Pt has a Living Will? No August 13 7:16pm Pt has a Power of Racking Technician? No Apri 2019 7:16pm Hospital Discharge Instructions [...] Discharge/Departure Date Attending Provider Departed Emergency [facility] August 14, 2019 7:09pm August 14, 2019 7:58pm Functional Status Query Response Date Recorded Comment Living Situation With Significant Other August 14, 2019 7:36pm Immunizations No known immunizations. Payers Payer Name Policy Type Covered Democrat Covered Democrat Id Relationship Subscriber Subscriber Id [employer] [place] Medicaid LACEY VALDEZ [id number] Self/Same as Patient LACEY VALDEZ [id number] SELF PAY Personal Plan of Care Instructions [...]
--- OUTSIDE RECORDS SUMMARY | 2022-11-18 17:37 | XMS_ITS | Continuity of Care Document ---
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 August 19, 2022 11:00pm Urine Culture August 19, 2022 10:00pm Creatinine August 20, 2022 11:00pm Glomerular Filtration Rate Calc August 20, 2022 11:00pm Vancomycin Level Trough August 20, 2022 11:00pm COMPREHENSIVE METABOLIC PANEL August 20, 2022 1 2:03am August 21, 2022 6:00am Vital Signs Order August 20, 2022 12:03am August 20, 2022 12:20pm Future Visits Future appointment information is unavailable Referrals to Other Providers Reason for Referral Referral Start Date Provider Harrison duvall Contact Information Provider Address No Pcp Future Procedures Procedure Name Ordered Date Scheduled Date VANCOMYCIN TROUGH LEVEL August 20, 2022 10:31am August 20, 2022 11:00pm Admission Order August 19, 2022 10:52pm August 082022 10:52pm Ambulate August 20, 2022 12:03am August 082022 7:00am Bathroom Privileges August 20, 2022 12:03am Apr il 2022 12:20pm COMPLETE BLOOD COUNT August 20, 2022 12:03am Ap ril 2022 6:00am HCV RNA PCR Detect/Quant August 20, 2022 12:06a m August 21, 2022 6:00am HEPATITIS PANEL August 20, 2022 12:06am August 082022 6:00am HIV 1&2 Combo August 20, 2022 12:06am August 082022 6:00am MAGNESIUM August 20, 2022 12:03am August 082022 6:00am Out of Bed to Chair August 20, 2022 12:03am Apr il 2022 12:20pm Resuscitation Status August 20, 2022 12:03am Ap ril 2022 12:03am SCD Bilateral LE August 20, 2022 12:03am August 20, 2022 12:20pm Future Medications Future medication information is unavailable Patient Instructions Viral Syndrome (DC) History & Physical Note Author Lexi Pierre [facility] August 20, 2022 9:39am Note Date/Time August 20, 2022 12: 38am Hosp History and Physical PATIENT NAME: LACEY VALDEZ MRN: [id number] DATE OF : 1985 ATTENDING PHYSICIAN: Natasha Woo MD PRIMARY CARE PHYS: No Pcp DICTATING PHYSICIAN: Markos Coronado MD REPORT STATUS: Signed with Addenda ADDENDUM ER: Dr. Pierre: Received call from lab informing us of positive blood cultures from August 18 both sets aerobic and anaerobic with MRSA. Patient is hospitalized currently and I called and spoke with Dr. Woo the hospitalist. Addended on: 08/20/22 at 0939 by <Electronically signed by Lexi Pierre MD> Basic Information Date of Service/Admission/PCP Date of Service: 08/19/22 Date of Admission: Primary Care Provider: No PCP History of Present Illness Reason for Visit Positive blood cultures History of Present Illness LACEY VALDEZ is a 36 year old F who presents with ABNORMAL LABS. 36-year-old female with history of IVDU in remission/opioid use disorder on Suboxone, history hepatitis C untreated, asthma, PTSD/anxiety/depression, asthma/smoker comes to [facility] with positive blood cultures. Patient reports on Wednesday she visited with her sister and , who was sick with fevers, he is improved. On Wednesday the patient started to have generalized body aches, subjective fevers and shaking chills, bilateral ear pain. ER visit on August 18 Diagnostics Flu RSV and COVID-19 negative Chest x-ray negative for acute CT and pelvis noncontrast possible enteritis Noted to have sweats in the ER, patient was diagnosed with possible viral syndrome, otitis media, discharged on amoxicillin and follow-up with PCP. Today patient's blood cultures came back positive for GPC x2 and returns to the ED Patient reports that subjective fevers and chills of continued. Today she developed lower lumbar back pain. She reports a broken tooth several weeks ago and has had right upper molar tooth pain unchanged, radiates into the maxilla and right TMJ region. Mild headache, no confusion and no neck pain or stiffness. Denies chest pain shortness of breath cough palpitations or dizziness. No abdominal pain nausea vomiting diarrhea bloody stools or urinary discomfort. She does report some pelvic discomfort but she thinks that is related to her menstrual period. No rashes, reports aching joints and body aches, no specific joint tenderness. In the ER, temperature 98.4 pulse 93 respiration 18 blood pressure 150/101 O2 sat 100 room air Labs White count 8.6, electrolytes reviewed and creatinine 0.7, AST 51 ALT 63 with normal bilirubin ESR 23, CRP 38 mildly elevated Urine dip 500 leukocytes positive nitrates Patient received fluids plus Zosyn plus Toradol 30 IV, ordered for vancomycin Review of Systems Constitutional: Fever, Chills, Fatigue, Malaise and Diaphoresis; denies Decreased Appetite Eye: denies Recent Change in Vison HENT: Ear Pain and Other (Right upper molar tooth pain); denies Sore Throat Respiratory: denies Shortness of Breath or Cough Cardiovascular: denies Chest Pain, Palpitations or Lighheadedness/Dizziness Gastrointestinal: denies Abdominal Pain, Nausea, Vomiting or Diarrhea Genitourinary: Other (Pelvic discomfort thought to be secondary to menstrual period); denies Dysuria Immune: Other (History MRSA infection 4 years ago, left ankle) Dermatologic: denies Rash Musculoskeletal: Myalgias, Arthalgias and Back Pain; denies Neck Pain Neurological: denies Change in Speech or Confusion Psychiatric: denies Anxiety Past Family Social History Medical Chronic Problems (Updated 08/20/22 @ 00:24 by aMrkos Coronado MD) Hepatitis C (Chronic) Anxiety and depression (Chronic) History of substance abuse (Chronic) Asthma (Chronic) Surgical Surgical History (Updated 08/19/22 @ 23:09 by Markos Coornado MD) History of wisdom tooth extraction Hx of tubal ligation Social Living Situation: Home and With Roommate Ambulation Ability: Independent Smoking Status: Current every day smoker Hx Tobacco Use: Yes (1 pack/day) Hx Alcohol Use: Yes Alcohol Intake Frequency: a few times a month Hx Substance/Street Drug Use: Yes (History of IV drug use many years ago, denies current illicit drug use) Substance Use Type: former substance user (Opioids, marijuana) Allergies/Home Medications Allergies/Home Medications Allergies/Adverse Reactions Allergy/AdvReac Type Severity Reaction Status Date / Time yellow dye Allergy Unknown Verified 08/18/22 20:50 aspirin Allergy hives Verified 08/18/22 20:50 codeine Allergy hives Verified 08/18/22 20:50 Home Medications: Reviewed ([employer] list) and Home med list not yet verified Objective Physical Exam Vital Signs Past 24HRS: Vital Signs Past 24 HRS Temp Pulse Resp BP Pulse Ox O2 Del Method 08/19/22 21:41 98.4 F 93 18 150/101 H 100 Room Air General: Other (No distress, nontoxic) Eye: EOMI HENT: Moist Oral Mucosa, Poor Dentition (Right upper molar broken, no obvious abscess or drainage, no facial or neck swelling, tender right TMJ) and TM's Clear (ED); negative Pharyngeal Erythema Neck: Supple; negative Tender Respiratory: Other (Scattered wheeze, likely chronic from smoking) Cardiac: Regular Rhythm and No Murmurs/Rubs/Gallops; negative Tachycardic Vascular: Other (Negative calf tenderness); negative Edema Gastrointestinal: Non-Distended, Soft, Non-Tender and Normal Bowel Sounds Genitourinary: Suprapubic Tendeness; negative Flank Tenderness Dermatologic: Warm, Dry and Other (Healed scarring around left ankle from previous cellulitis/MRSA infection) Musculoskeletal: Normal Strength and Other (Focal tenderness to palpation over lower lumbar spine extending into the sacroiliac region) Neurological: Alert, Oriented and Normal Speech; negative Focal Deficits Psychiatric: Cooperative and Appropriate Mood & Affect Data Review Labs/Diagnostics/Documentation Reviewed Lab Results Past 24HR: Labs - Abnormals Past 24HRS 08/19/22 08/19/22 22:21 22:21 MCHC 31.9 L RDW 14.6 H MPV 11.5 H Eos % (Auto) 3.2 H [place] # (Auto) 0.85 H Glucose 69 L AST 51 H ALT 63 H C-Reactive Protein 38.8 H Total Protein 8.5 H Lab Results Reviewed: Laboratory Results Reviewed Diagnostic Imaging: Images Reviewed and Reports Reviewed CXR Findings: IMPRESSION: No acute findings. CT Findings: CT abdomen pelvis noncontrast IMPRESSION: 1. ??? Limited exam. 2. ??? Enteritis questioned. 3. ??? Nonvisualized appendix. Documentation Reviewed: ED Report and PRISM Case Discussed With: Yogesh Whitley POC Test Results: POC UPT Negative Urine Specific [place] 1.020 Urine PH 7 Urine Leukocytes 500 Brian/ul (++) Urine Nitrites Positive Urine Protein 100 mg/dl Urine Glucose 50 mg/dl Urine Ketones Negative Urine Urobilinogen 1 mg/dl Urine Bilirubin 1 mg/dl (+) Urine Blood 50 mervat/ul Urine Specimen Type Voided Impression and Plan Necessity for Hospitalization Hospitalized due to bacteremia requiring IV antibiotics. Admitted inpatient status, anticipate hospitalization greater than 2 midnight. Discussion/Assessment 36-year-old female with history of IVDU in remission/opioid use disorder on Suboxone, history hepatitis C untreated, asthma, PTSD/anxiety/depression, asthma/smoker comes to [facility] with positive blood cultures. Patient reports on Wednesday she visited with her sister and , who was sick with fevers, he is improved. On Wednesday the patient started to have generalized body aches, subjective fevers and shaking chills, bilateral ear pain. ER visit on August 18: Flu RSV and COVID-19 negative Chest x-ray negative for acute??? CT and pelvis noncontrast possible enteritis??? Noted to have sweats in the ER, blood cultures obtained, patient was diagnosed with possible viral syndrome, otitis media, discharged on amoxicillin and follow-up with PCP. Patient did not start amoxicillin. Continued to feel poorly today 08/19 with fevers and chills, and developed lumbar and sacroiliac back pain. Today patient's blood cultures from 08/18 came back positive for GPC x2, and returns to the ED Discussion with ER physician: Afebrile and normal white count. Mild ESR and CRP. Given GPC bacteremia, received Zosyn and vancomycin in the ER, continue vancomycin. Regarding bilateral ear pain, TMs evaluated by ER and not felt to be infected. Right upper molar broken tooth without any sign of abscess or infection, reportssome tooth discomfort for several weeks/months radiating to her right ear/TMJ, no obvious swelling or sign of infection at this time. Also reports suprapubic discomfort which she feels is related to her menstrual period. Urine dip was positive for leukocytes/nitrates, but denied any urinary symptoms. Exam reveals point tenderness lumbar and sacrum area.??? No focal neurologic findings.??? There is no murmur on today's exam. Continue antibiotics and will order MRI with and without contrast lumbar/pelvis for a.m. Patient reports history of left ankle cellulitis which turned into MRSA blood infection about 4 years ago at [place]. Reports that she stayed in thehospital for 2 weeks for IV antibiotics, that they were considering amputating the foot, she decided to leave and received 4 additional weeks of oral antibiotics. Denies any serious infections since. Reports history of hepatitisC untreated. Denies any illicit drug use currently, reports no IVDU for several years. Problems and Plan (1) Bacteremia: Status: Acute (2) Elevated LFTs: Status: Acute (3) Hepatitis C: Status: Chronic Plan 1. GPC bacteremia in clusters on blood cultures August 18 Vancomycin day 1 (received Zosyn in the ER) Urine micro ordered Follow-up urine culture Follow-up blood cultures obtained August 18 and August 19 MRI lumbar and pelvis with and without contrast rule out discitis/abscess Pain control with scheduled Tylenol, Toradol, *reconcile home Suboxone 2. Elevated LFTs- bacteremia, history of hepatitis C untreated Repeat LFTs ordered Hepatitis panel ordered Hep C quantification ordered HIV testing ordered U tox ordered- on Suboxone, received ketamine in the ER for pain Can consider right upper quadrant ultrasound- CT abdomen pelvis 08/18 mildly dilated CBD 11 mm, no RUQ tenderness on exam chronic problems: Reconcile home meds in a.m. including home Suboxone dosing Smoker/asthma with scattered wheezing - RT protocol Additional Information VTE Prophylaxis: SCDs (For now pending MRI results) Anticipated Plan at Discharge: Return to Previous Living Situation Code Status: Full Code <Electronically signed by Markos Coronado MD> 08/20/22 0038 cc: ~ Progress Note Author KANDICE Rondon [facility] August 20, 2022 7:38am Note Date/Time August 19, 2022 10: 44pm ER Physician Documentation PATIENT NAME: LACEY VALDEZ MRN: [id number] DATE OF : 1985 ATTENDING PHYSICIAN: Natasha Woo MD PRIMARY CARE PHYS: No Pcp DICTATING PHYSICIAN: Yogesh Whitley MD REPORT STATUS: Signed with Addenda ADDENDUM Transition of care from overnight physician: Pending M/S admission. Resting quietly without complaints. Labs will be redrawn as scheduled by hospitalist by lab. 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 RN notes were reviewed, past medical history was reviewed (Available PMH, SH, Meds, Allergies provided by RN notes were reviewed), social history was reviewed and medical records pertainingto this encounter were reviewed. This evaluation was initiated on 08/19/22 21:33 Chief complaint is positive blood cultures. Patient was called back to the emergency department because of 2 sets of positive blood cultures. She has had several days of right upper molar tooth pain radiating into the maxilla and right temporomandibular joint region. She is not certain if she has some hardware there from prior facial fracture. Distant history of intravenous drug use but not reportedly recently. No headache or confusion or neck stiffness. No focal ear discomfort other than the pain seems to radiate towards the right ear. She also has focal lumbar and right- sided paralumbar low back discomfort. No urinary symptoms. The back pain extends into the right sacroiliac region. She feels weak and has general malaise. Did not specifically notice a fever. Has not started her amoxicillin yet. No cough or chest pain or trouble breathing. Some suprapubic abdominal discomfort but states she is on her menstrual cycle. Review of Systems ROS Constitutional NO Report of Fever Skin NO Report of Acute Rash HENT NO Report of Airway Difficulty Respiratory NO Report of Cough or Dyspnea Cardiovascular NO Report of Chest Pain Gastrointestinal NO Report of Vomiting or Diarrhea Musculoskeletal NO Report of Arthalgias Neurological NO Report of Change in Cognition, Headache or Neurologic Impairment Past Medical History Medical History (Updated 08/19/22 @ 23:02 by Yogesh Whitley MD) Asthma Surgical History (Updated 08/19/22 @ 23:09 by Markos Coronado MD) History of wisdom tooth extraction Hx of tubal ligation Social History Smoking Status: Current every day smoker tobacco type: cigarettes Number of Packs Per Day: 1 Second Hand Smoke Exposure: Yes Hx Alcohol Use: Yes Alcohol intake frequency: a few times a month substance use type: former substance user and marijuana Hx Substance/Street Drug Use: Yes Hx Substance Use Treatment: Yes (20mg Buprenorphine.) Isolation Needs Hx of: Hepatitis [place] Allergies yellow dye Allergy (Unknown, Verified 08/18/22 20:50) Anaphylactic Shock. aspirin Allergy (Verified 08/18/22 20:50) hives codeine Allergy (Verified 08/18/22 20:50) hives Home Medications buprenorphine 8 mg-naloxone 2 mg sublingual film (Suboxone) 2 film sublingual DAILY 08/14/19 [Confirmed 09/05/19] dexmethylphenidate 15 mg capsule,extended release [id number] (Focalin XR) mg PO 08/14/19 ondansetron 4 mg disintegrating tablet 08/14/19 aripiprazole 10 mg tablet mg 08/18/22 quetiapine 100 mg tablet (Seroquel) 100 mg PO BID 08/18/22 amoxicillin 500 mg tablet 1,000 mg PO BID #30 tabs 08/19/22 Vital Signs Table Temp Pulse Resp BP Pulse Ox O2 Del Method 08/19/22 21:41 98.4 F 93 18 150/101 H 100 Room Air Primary Exam The patient's heart rate is 93, blood pressure is 150/101, temperature is 98.4 F, and respiratory rate is 18. Oxygen saturation is 100%; The patientweighs 59 kg. Mental status is awake, appropriate and baseline cognition. There is no apparent respiratory difficulty. The patient has warm extremities. The patient appears in no distress Detailed Exam Const normally developed, non-toxic and appears fatigued Skin warm and dry; no rash, no diaphoresis and no pallor HENT head: normocephalic and atraumatic patent airway R TM scarred, not AOM. tender R TMJ and maxilla/mandible, carious broken teeth,no palpable or visible abscess for drainage, no facial or neck swelling Neck full ROM, supple and no meningeal signs; negative mass or tender Resp clear to auscultation and equal breath sounds; negative labored Card regular rhythm and no murmur GI soft, non-distended and tender to palpation slight tenderness suprapubic region, no guarding or peritonitis, mild bilat CVA tenderness Musc well perfused; negative swelling no DVT signs Neuro no focal deficits, equal strength and NL sensation; negative facial droop or slurred speech Psych mental status: mental status grossly normal attitude: cooperative Detailed Neuro general: patient alert, patient awake and patient oriented x3 Ordered Tests and Interventions Category Date Time Status IV Insertion (ED) .once Care 08/19/22 21:45 Completed POC UPT .now Care 08/19/22 22:02 Completed POC Urine Dip .ONCE Care 08/19/22 22:02 Completed BLOOD CULTURE Q2M Lab 08/19/22 22:21 Received BLOOD CULTURE Q2M Lab 08/19/22 23:00 Received CBC W/DIFF Stat Lab 08/19/22 22:21 Completed COMPREHENSIVE METABOLIC PANEL Stat Lab 08/19/22 22:21 Completed CRP Stat Lab 08/19/22 22:21 Completed ESR Stat Lab 08/19/22 22:21 Completed LACTIC ACID Stat Lab 08/19/22 22:21 Completed URINE CULTURE Stat Lab 08/19/22 23:13 Ordered Ordered Medications Discontinued Medications Sodium Chloride (Sodium Chl 0.9%) 1,000 mls @ 0 mls/hr IV .Q0M ONE Stop: 08/19/22 22:08 Last Admin: 08/19/22 23:14 Dose: 1,000 mls/hr Piperacillin Sod/Tazobactam Sod (Zosyn Piggyback) 4.5 gm in 100 mls @ 200 mls/hr IV ONCE ONE Stop: 08/19/22 22:36 Last Admin: 08/19/22 23:14 Dose: 200 mls/hr Ketorolac Tromethamine (Ketorolac 30 Mg/Ml Vial) 30 mg IV ONCE STA Stop: 08/19/22 22:08 Last Admin: 08/19/22 23:02 Dose: 30 mg Lab Results 08/19/22 22:21: Sodium 139, Potassium 3.6, Chloride 100, Carbon Dioxide 30, Anion Gap 9, BUN 11, Creatinine 0.70, GFR Calculation > 60, Glucose 69 L, LacticAcid 1.2, Calcium 8.6, Calcium Adj for Albumin 8.8, Total Bilirubin 0.3, AST 51 H, ALT 63 H, Alkaline Phosphatase 56, C-Reactive Protein 38.8 H, Total Protein 8.5 H, Albumin 4.1 08/19/22 22:21: WBC 8.66, RBC 4.39, Hgb 12.2, Hct 38.2, MCV 87.0, MCH 27.8, MCHC31.9 L, RDW 14.6 H, Plt Count 184, MPV 11.5 H, Immature Gran % (Auto) 0.2, Neut % (Auto) 55.2, Lymph % (Auto) 31.1, [place] % (Auto) 9.8, Eos % (Auto) 3.2 H, Baso % (Auto) 0.5, Neut # (Auto) 4.78, Lymph # (Auto) 2.69, [place] # (Auto) 0.85 H, Eos# (Auto) 0.28, Baso # (Auto) 0.04, Abs Immat Gran (auto) 0.0, Differential Method Automated, ESR 23 H Data Review Lab results as noted (labs reviewed and noted) see below Radiological images were viewed by Provider and radiology report was reviewed xr and abd/pelv ct yesterday neg incl low back but noncontrast will likely need mri POC Test Results: POC UPT Negative Urine Specific [place] 1.020 Urine PH 7 Urine Leukocytes 500 Brian/ul (++) Urine Nitrites Positive Urine Protein 100 mg/dl Urine Glucose 50 mg/dl Urine Ketones Negative Urine Urobilinogen 1 mg/dl Urine Bilirubin 1 mg/dl (+) Urine Blood 50 mervat/ul Urine Specimen Type Voided Medical Decision Making MDM Decision making considerations: Outside prior records reviewed:[facility] 08[facility] Additional sources of patient history: pt and friend at bedside Tests considered but not felt to be currently indicated clinically: Initially considered CT but then realized it was already performed last night of her abdomen and pelvis. She does not have any facial swelling to indicate need for facial CT or surgical drainage thus that is deferred. I discussed the possibility of osteomyelitis or discitis of her jaw or low back and the need forpossible MRI tomorrow as inpatient with the admitting hospitalist service. Independent view and review of labwork: Normal white blood cell count and lactate, she has bacteremic but not septic. Discussion with consultants: Dr. Coronado admitting to [facility] status Social determinants of health: no current ivdu Complexity of care: severe exacerbation or acute posing possible life or bodily function threat Management or test interpretation discussion Risk: Decision regarding major surgery or hospitalization or hospital care level escalation Results of this evaluation were discussed with (patient and family when available) and Return precautions were reviewed with the patient and/or caregivers. Discharge Plan Provider Discharge Plan Clinical Impression: Bacteremia, Pain, dental, Low back pain, UTI (urinary tract infection) Patient Disposition[place] [facility] [place] Decision Date: 08/19/22 Disposition Decision Time: 22:59 <Electronically signed by Yogesh Whitley MD> 08/19/22 [id number] cc: ~
--- OUTSIDE RECORDS SUMMARY | 2022-11-18 17:37 | XMS_ITS | Continuity of Care Document ---
Author Name Unknown Address [address] [place] [address] [facility] Address [address] [place] [address] Phone Care Team Providers Care Sheet Mill Supervisor Name Role Phone Out of Town, Provider Primary Care Provider Unav ailable Allergies, Adverse Reactions, Alerts Allergen Type Severity Reaction Last Updated Verified Status aspirin Allergy hives August 14, 2019 Yes Active codeine Allergy hives August 14, 2019 Yes Active Medications Medication Status Dose Units Route Sig Qty Days Start Date End Date Instructions Ondansetron Active August 14, 2019 7:25pm Dexmethylphenidate Active MG ORAL August 14, 2019 7:25pm Buprenorphine-Naloxo ne Active August 14, 2019 7:25pm Sulfamethoxazole-Tri methoprim Active 1 TAB ORAL TWICE A DAY August 14, 2019 7:49pm Phenazopyridine Active 200 MG ORAL THRE E TIMES A DAY August 14, 2019 7:49pm Problems Active Problems Medical Problem Onset Date Status Acute cystitis with hematuria Ac tive Advance Directives Advance Directive Response Recorded Date/ Time Does patient have an Advanced Directive? No August 14, 2019 7:16pm Do we have a copy on file here at [facility]? No August 14, 2019 7:16pm Pt has a Living Will? No August 14, 2019 7:16pm Do we have a copy on file here at [facility]? No August 14, 2019 7:16pm Pt has a Power of Buffing Wheel Raker? No Apri 2019 7:16pm Do we have a copy on file here at [facility]? No August 14, 2019 7:16pm Encounters Encounter Location(s) Arrival/Admit Date Discharge/Depart Date Provider(s) Departed Emergency [facility] Urgent [facility] August 14, 2019 7:09pm August 14, 2019 7:58pm null Assessments No Assessments Information Available Functional Status Observation Response Date Recorded Living Situation With Significant Other August 7:36pm Goals Goals may be documented in an alternate section. Mental Status No Mental Status Information Available Medical Equipment No Medical Equipment Information available Insurance Providers Guarantor LACEY VALDEZ Address [address] [place] [id number] Contact Info. Home Phone: Payer Policy Id Coverage Id Subscriber's Name Subscriber Id Effective Date Expiration Date [place] [id number] LACEY COURTNEY [id number] SELF PAY Self N/A Plan of Treatment Future Tests Future scheduled test information is unavailable Pending Tests Pending diagnostic test information is unavailable Future Visits Future appointment information is unavailable Referrals to Other Providers Reason for Referral Referral Start Date Provider Harrison duvall Contact Information Provider Address Town Out Future Procedures Future procedure information is unavailable Future Medications Future medication information is unavailable Patient Instructions COVID 19 General Instruction s- decrease the spread of coronavirus Social History Smoking Status Status Date of Observation Smokes tobacco daily (finding) August 7:36pm Observation Status Observation Response Date of Response Alcohol Use Yes August 14, 2019 7:36pm alcohol intake frequency a few times a month Apr 2019 7:36pm substance use type marijuana August 13 7:36pm Smoking Status Current every day smoker August 132019 7:36pm Assigned Sex Female Vital Signs Vital Reading Result Reference Range Collection Date/Time Weight 60.32 kg August 14, 2019 7:27pm Body Temperature 98.4 [degF] 97.6-99.6 August 14, 2019 7:27pm Heart Rate 88 /min 60-100 August 14, 2019 7:27pm Respiratory rate 16 /min 12-24 August 14, 2019 7:27pm Oxygen saturation by Pulse oximetry 98 % 95-100 August 14, 2019 7:27 pm BP Systolic 120 mm[Hg] 100-140 August 14, 2019 7:27pm BP Diastolic 72 mm[Hg] 50-85 August 14, 2019 7:27pm
--- OUTSIDE RECORDS SUMMARY | 2022-11-18 17:37 | XMS_ITS | Continuity of Care Document ---
Author Name Unknown Organization [facility] Address Unknown Care Team Providers Care Metallurgical Engineering Teacher Name Role Phone ADRIENNE AGGARWAL Primary Care Physician Encounter Date(s): 02/26/21 - 02/26/21 [facility] [address] [place], [place] [address] Encounter Diagnosis Foot pain(Discharge Diagnosis) - 02/26/21 Use of nonprescription opiate drugs(Discharge Diagnosis) - 02/26/21 Discharge Disposition: Home or Self Care Attending Physician: GUCCI BELLA MD Admitting Physician: GUCCI BELLA MD Allergies, Adverse Reactions, Alerts Substance Reaction Severity Status codeine Swelling Active aspirin Swelling Active Medications methadone 120 mg, Oral, Daily, street Methadone & heroin, 0 Refill(s) Start Date: 02/26/21 Status: Ordered Motrin 800 mg, taking every 2 hrs, 0 Refill(s) Start Date: 02/26/21 Status: Ordered Mental Status 02/26/21 Orientation Assessment Oriented x 4 Procedures Procedure Date Related Diagnosis Body Site Status Child 2011 Complete d Child 2013 Complete d Left foot Surgery Complet ed Vital Signs Most recent to oldest [Reference Range]: 1 2 Temperature Oral [35.8-37.3 DegC] 36.9 D egC (02/26/21 7:18 AM) Peripheral Pulse Rate [60-100 bpm] 86 bp m (02/26/21 10:55 AM) 96 bpm (02/26/21 7:50 AM) Respiratory Rate [14-20 br/min] 16 br/mi n (02/26/21 10:55 AM) 18 br/min (02/26/21 7:50 AM) Blood Pressure 110/86mmHg (02/26/21 10:55 AM) 119/88mmHg (02/26/21 7:50 AM) Social History Social History Type Response Smoking Status Current every day sm oker; Type: Cigarettes; Previous treatment: None; Ready to change: No; Concerns about tobacco use in household: No;Never; Tobacco use per day: 20; Number of years: 22; Total pack years: 22; Started at age: 12; entered on: 02/26/21 Sex Female Hospital Discharge Instructions Patient Education 02/26/2021 11:38:39 Opioid Use Disorder Opioid Use Disorder Opioid use disorder is a condition in which opioids are used for reasons other than medical care. The person may use them even though taking them hurts the person's health and well-being. These drugsare powerful substances that relieve pain. Opioids include drugs such as heroin as well as prescription medicines for pain, such as: ??? Codeine. ??? Morphine. ??? Hydrocodone. ??? Oxycodone. ??? Fentanyl. Taking prescribed opioids regularly can lead to dependence, especially if you take them in larger amounts or more often than they should be taken. Opioid use disorder can lead to problems with mentaland physical health, including: ??? Depression or anxiety. ??? Severe constipation. ??? Malnutrition and weight loss. ??? Sleep problems. ??? Diseases caused by infections, such as hepatitis or HIV. ??? Sexual problems. Opioid use disorder can be dangerous. It increases the risk of suicide and can lead to an overdose that can be life-threatening. What are the causes? This condition is caused by taking opioids. Taking opioids again and again results in changes in the brain that make it hard to control opioid use. Many people develop this condition because they like the way they feel when they take opioids or because they get addicted to them. What increases the risk? This condition is more likely to develop in people who: ??? Have a family history of opioid use disorder. ??? Misuse other drugs. ??? Have a mental illness, such as depression, post-traumatic stress disorder, or antisocial personality disorder. ??? Begin use at an early age, such as during their teenage years. What are the signs or symptoms? Symptoms of this condition include: ??? Taking opioids in larger amounts or for longer periods than you want to. ??? Being unable to slow down or stop your use of the drug. ??? Spending an abnormal amount of time getting opioids, using them, or recovering from their effects. ??? Craving opioids. ??? Using opioids in a way that interferes with work, school, social activities, and personal relationships. ??? Giving up or cutting down on important life activities because of opioid use. ??? Using opioids when it is dangerous, such as when driving a car. ??? Continuing to use the drug even after it has led to problems such as: ??? Physical or mental health problems. ??? Legal or financial troubles. ??? Job loss. ??? Broken relationships. ??? Needing more and more of an opioid to get the same effect (building up a tolerance). ??? Experiencing unpleasant symptoms if you do not use the opioid (withdrawal). Some symptoms of withdrawal include: ??? Depression, anxiety, or feeling irritable. ??? Nausea or vomiting. ??? Muscle aches or spasms. ??? Watery eyes. ??? Trouble sleeping. ??? Yawning. How is this diagnosed? This condition is diagnosed based on: ??? A physical exam. ??? Your history of opioid use. ??? Your symptoms. This includes: ??? How opioid use affects your life. ??? Changes in personality, behaviors, and mood. ??? Having at least two symptoms of opioid use disorder within a 12-month period. ??? Health issues related to using opioids. ??? Blood or urine tests to screen for drugs. How is this treated? The first goal of treatment is to stop your use of opioids. This must be done safely and may involve taking medicines to lessen withdrawal symptoms. Treatment may also involve: ??? Taking part in group and individual counseling from mental health providers who have experiencewith substance use disorder. ??? Staying at a residential treatment center for several days or weeks. ??? Attending daily counseling sessions at a treatment center. ??? Taking medicines as told by your health care provider that: ??? Ease symptoms and prevent complications during withdrawal. ??? Block cravings and block the good feeling that you get from using opioids. ??? Treat other mental health issues, such as depression or anxiety. ??? Reduce agitation. ??? Participating in a support group to share your experience with others who are going through thesame thing. ??? Using opioid maintenance treatment. This involves taking certain kinds of opioid medicines. These medicines satisfy cravings but are safer than opioids that are commonly misused. Recovery can be a long process. Some people who undergo treatment start using opioids again after stopping (relapse). If you relapse, it does not mean that treatment will not work. Follow these instructions at home: Medicines ??? Take otxc-zju-[id number] and prescription medicines only as told by your health care provider. ??? Check with your health care provider before starting any new medicines, herbs, or supplements. General instructions ??? Do not use any drugs or alcohol. ??? Avoid people and activities that trigger your use of opioids. ??? Learn and practice techniques for managing stress. ??? Have a plan for vulnerable moments. Get phone numbers of those who are willing to help and who are committed to your recovery. ??? Attend support groups regularly. These groups provide emotional support, advice, and guidance. ??? Keep all follow-up visits as told by your health care provider. This is important. This includes continuing to work with therapists and support groups. Where to find more information ??? National [place] on Drug Abuse: drugabuse.gov ??? Substance Abuse and Mental Health Services Administration: samhsa.gov ??? Narcotics Anonymous: na.org Contact a health care provider if: ??? You cannot take your medicines as told. ??? Your symptoms get worse. ??? You have a relapse. Get help right away if: ??? You may have taken too much of an opioid (overdosed). Common symptoms of an overdose include: ??? Sleepiness or difficulty waking from sleep. ??? Decrease in attention. ??? Confusion. ??? Slurred speech. ??? Slowed breathing and a slow pulse (bradycardia). ??? Nausea and vomiting. ??? Abnormally small pupils. ??? You have serious thoughts about hurting yourself or others. These symptoms may represent a serious problem that is an emergency. Do not wait to see if the symptoms will go away. Get medical help right away. Call your local emergency services (911 in the [place] Do not drive yourself to the hospital. If you were prescribed a drug (naloxone) that reverses the effects of an opioid overdose, a friend,family member, or emergency services provider can administer the drug in an emergency. If you ever feel like you may hurt yourself or others, or have thoughts about taking your own life,get help right away. You can go to your nearest emergency department or call: ??? Your local emergency services (911 in the [place] ??? A suicide crisis helpline, such as the National Suicide Prevention Lifeline at . This is open 24 hours a day. Summary ??? Opioid use disorder is a condition in which opioids are used for reasons other than medical care. ??? Opioid use disorder can be dangerous. It can lead to various mental and physical problems, and an opioid overdose can be life-threatening. ??? The first goal of treatment is to stop your use of opioids. This must be done safely and may involve taking medicines to lessen withdrawal symptoms. This information is not intended to replace advice given to you by your health care provider. Make sure you discuss any questions you have with your health care provider. Document Revised: 09/27/2019 Document Reviewed: 09/27/2019 [employer] Patient Education ?? 2020 [employer]. 02/26/2021 11:38:39 Foot Pain Foot Pain Many things can cause foot pain. Some common causes are: ??? An injury. ??? A sprain. ??? Arthritis. ??? Blisters. ??? Bunions. Follow these instructions at home: Managing pain, stiffness, and swelling If directed, put ice on the painful area: ??? Put ice in a plastic bag. ??? Place a towel between your skin and the bag. ??? Leave the ice on for 20 minutes, 2???3 times a day. Activity ??? Do not stand or walk for long periods. ??? Return to your normal activities as told by your health care provider. Ask your health care provider what activities are safe for you. ??? Do stretches to relieve foot pain and stiffness as told by your health care provider. ??? Do not lift anything that is heavier than 10 lb (4.5 kg), or the limit that you are told, untilyour health care provider says that it is safe. Lifting a lot of weight can put added pressure on your feet. Lifestyle ??? Wear comfortable, supportive shoes that fit you well. Do not wear high heels. ??? Keep your feet clean and dry. General instructions ??? Take itud-mha-uhvyfuu and prescription medicines only as told by your health care provider. ??? Rub your foot gently. ??? Pay attention to any changes in your symptoms. ??? Keep all follow-up visits as told by your health care provider. This is important. Contact a health care provider if: ??? Your pain does not get better after a few days of self-care. ??? Your pain gets worse. ??? You cannot stand on your foot. Get help right away if: ??? Your foot is numb or tingling. ??? Your foot or toes are swollen. ??? Your foot or toes turn white or blue. ??? You have warmth and redness along your foot. Summary ??? Common causes of foot pain are injury, sprain, arthritis, blisters or bunions. ??? Ice, medicines, and comfortable shoes may help foot pain. ??? Contact your health care provider if your pain does not get better after a few days of self-care. This information is not intended to replace advice given to you by your health care provider. Make sure you discuss any questions you have with your health care provider. Document Revised: 02/09/2019 Document Reviewed: 02/09/2019 [employer] Patient Education ?? 2020 [employer]
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
--- OUTSIDE RECORDS SUMMARY | 2022-11-18 17:37 | XMS_ITS | Continuity of Care Document ---
Author Name Unknown Organization [facility] Address Unknown Care Team Providers Care Photography Spotter Name Role Phone SONAL KIM Primary Care Physician Kenia vailable Encounter Date(s): 05/24/21 - 05/24/21 [facility] [address], [place] [address] Encounter Diagnosis Sprain of right shoulder possible AC separation-or rotator cuff injury(Discharge Diagnosis) - 05/24/21 Discharge Disposition: Home or Self Care Attending Physician: RICARDA VANESSA MD Admitting Physician: RICARDA VANESSA MD Allergies, Adverse Reactions, Alerts Substance Reaction Severity Status codeine Swelling Active aspirin Swelling Active Medications methadone 120 mg, Oral, Daily, street Methadone & heroin, 0 Refill(s) Start Date: 02/26/21 Status: Ordered Motrin 800 mg, taking every 2 hrs, 0 Refill(s) Start Date: 02/26/21 Status: Ordered Mental Status 05/24/21 Orientation Assessment Oriented x 4 Procedures Procedure Date Related Diagnosis Body Site Status Child 2011 Complete d Child 2013 Complete d Left foot Surgery Complet ed Vital Signs Most recent to oldest [Reference Range]: 1 Temperature Oral [35.8-37.3 DegC] 36.6 D egC (05/24/21 4:59 AM) Peripheral Pulse Rate [60-100 bpm] 82 bp m (05/24/21 4:59 AM) Respiratory Rate [14-20 br/min] 18 br/mi n (05/24/21 4:59 AM) Blood Pressure 127/82mmHg (05/24/21 4:59 AM) Social History Social History Type Response Smoking Status Current every day sm oker; Type: Cigarettes; Previous treatment: None; Ready to change: No; Concerns about tobacco use in household: No;Never; Tobacco use per day: 20; Number of years: 22; Total pack years: 22; Started at age: 12; entered on: 02/26/21 Sex Female Hospital Discharge Instructions Patient Education 05/24/2021 06:28:12 Rotator Cuff Tear possible Rotator Cuff injury A rotator cuff tear is a partial or complete tear of the cord-like bands (tendons) that connect muscle to bone in the rotator cuff. The rotator cuff is a group of muscles and tendons that surround the shoulder joint and keep the upper arm bone (humerus) in the shoulder socket. The tear can occur suddenly (acute tear) or can develop over a long period of time (chronic tear). What are the causes? Acute tears may be caused by: ??? A fall, especially on an outstretched arm. ??? Lifting very heavy objects with a jerking motion. Chronic tears may be caused by overuse of the muscles. This may happen in sports, physical work, oractivities in which your arm repeatedly moves over your head. What increases the risk? This condition is more likely to occur in: ??? Athletes and workers who frequently use their shoulder or reach over their heads. This may include activities such as: ??? Tennis. ??? Baseball and softball. ??? Swimming and rowing. ??? Weightlifting. ??? Construction work. ??? Painting. ??? People who smoke. ??? Older people who have arthritis or poor blood supply. These can make the muscles and tendons weaker. What are the signs or symptoms? Symptoms of this condition depend on the type and severity of the injury: ??? An acute tear may include a sudden tearing feeling, followed by severe pain that goes from yourupper shoulder, down your arm, and toward your elbow. ??? A chronic tear includes a gradual weakness and decreased shoulder motion as the pain gets worse. The pain is usually worse at night. Both types may have symptoms such as: ??? Pain that spreads (radiates) from the shoulder to the upper arm. ??? Swelling and tenderness in front of the shoulder. ??? Decreased range of motion. ??? Pain when: ??? Reaching, pulling, or lifting the arm above the head. ??? Lowering the arm from above the head. ??? Not being able to raise your arm out to the side. ??? Difficulty placing the arm behind your back. How is this diagnosed? This condition is diagnosed with a medical history and physical exam. Imaging tests may also be done, including: ??? X-rays. ??? MRI. ??? Ultrasound. ??? CT or MR arthrogram. During this test, a contrast material is injected into your shoulder and then images are taken. How is this treated? Treatment for this condition depends on the type and severity of the condition. In less severe cases, treatment may include: ??? Rest. This may be done with a sling that holds the shoulder still (immobilization). Your healthcare provider may also recommend avoiding activities that involve lifting your arm over your head. ??? Icing the shoulder. ??? Anti-inflammatory medicines, such as aspirin or ibuprofen. ??? Strengthening and stretching exercises. Your health care provider may recommend specific exercises to improve your range of motion and strengthen your shoulder. In more severe cases, treatment may include: ??? Physical therapy. ??? Steroid injections. ??? Surgery. Follow these instructions at home: Managing pain, stiffness, and swelling ??? If directed, put ice on the injured area. ??? If you have a removable sling, remove it as told by your health care provider. ??? Put ice in a plastic bag. ??? Place a towel between your skin and the bag. ??? Leave the ice on for 20 minutes, 2???3 times a day. ??? Raise (elevate) the injured area above the level of your heart while you are lying down. ??? Find a comfortable sleeping position or sleep on a recliner, if available. ??? Move your fingers often to avoid stiffness and to lessen swelling. ??? Once the swelling has gone down, your health care provider may direct you to apply heat to relax the muscles. Use the heat source that your health care provider recommends, such as a moist heat pack or a heating pad. ??? Place a towel between your skin and the heat source. ??? Leave the heat on for 20???30 minutes. ??? Remove the heat if your skin turns bright red. This is especially important if you are unable to feel pain, heat, or cold. You may have a greater risk of getting burned. If you have a sling: ??? Wear the sling as told by your health care provider. Remove it only as told by your health careprovider. ??? Loosen the sling if your fingers tingle, become numb, or turn cold and blue. ??? Keep the sling clean. ??? If the sling is not waterproof: ??? Do not let it get wet. ??? Cover it with a watertight covering when you take a bath or a shower. Driving ??? Do not drive or use heavy machinery while taking prescription pain medicine. ??? Ask your health care provider when it is safe to drive if you have a sling on your arm. Activity ??? Rest your shoulder as told by your health care provider. ??? Return to your normal activities as told by your health care provider. Ask your health care provider what activities are safe for you. ??? Do any exercises or stretches as told by your health care provider. General instructions ??? Do not use any products that contain nicotine or tobacco, such as cigarettes and e-cigarettes. If you need help quitting, ask your health care provider. ??? Take cpys-kgp-jtpnwit and prescription medicines only as told by your health care provider. ??? Keep all follow-up visits as told by your health care provider. This is important. Contact a health care provider if: ??? Your pain gets worse. ??? You have new pain in your arm, hands, or fingers. ??? Medicine does not help your pain. Get help right away if: ??? Your arm, hand, or fingers are numb or tingling. ??? Your arm, hand, or fingers are swollen or painful or they turn white or blue. ??? Your hand or fingers on your injured arm are colder than your other hand. Summary ??? A rotator cuff tear is a partial or complete tear of the cord-like bands (tendons) that connectmuscle to bone in the rotator cuff. ??? The tear can occur suddenly (acute tear) or can develop over a long period of time (chronic tear). ??? Treatment generally includes rest, anti-inflammatory medicines, and icing. In some cases, physical therapy and steroid injections may be needed. In severe cases, surgery may be needed. This information is not intended to replace advice given to you by your health care provider. Make sure you discuss any questions you have with your health care provider. Document Revised: 04/08/2018 Document Reviewed: 07/12/2017 [employer] Patient Education ?? 2020 [employer]. 05/24/2021 06:28:12 Acromioclavicular Separation possible Acromioclavicular Separation which we treat like a sprain with ice rest tylenol and recheck in 7-10 days - A shoulder separation (acromioclavicular separation) is an [...] these instructions at home: Medicines ??? Take ipmc-bsc-kefqgpn and prescription medicines only as told by [...] fried or sweet foods. ??? Take an oxsf-two-allggkk or prescription medicine for constipation. If you [...] provider. Document Revised: 06/11/2018 Document Reviewed: 06/11/2018 [employer] Patient Education ?? 2019 [employer]. 05/24/2021 06:28:12 Shoulder Sprain Shoulder Sprain could be AC Separation or Rotator cuff injury which we treat the same as a sprain with ice rest in sling- gradually increase movement tylenol 2 tabs every 6 hr and recheck in 7-10 days - A shoulder sprain is a partial or complete tear in one of the tough, fiber-like tissues (ligaments)in the shoulder. The ligaments in the shoulder help to hold the shoulder in place. What are the causes? This condition may be caused by: ??? A fall. ??? A hit to the shoulder. ??? A twist of the arm. What increases the risk? You are more likely to develop this condition if you: ??? Play sports. ??? Have problems with balance or coordination. What are the signs or symptoms? Symptoms of this condition include: ??? Pain when moving the shoulder. ??? Limited ability to move the shoulder. ??? Swelling and tenderness on top of the shoulder. ??? Warmth in the shoulder. ??? A change in the shape of the shoulder. ??? Redness or bruising on the shoulder. How is this diagnosed? This condition is diagnosed with: ??? A physical exam. During the exam, you may be asked to do simple exercises with your shoulder. ??? Imaging tests such as X-rays, MRI, or a CT scan. These tests can show how severe the sprain is. How is this treated? This condition may be treated with: ??? Rest. ??? Pain medicine. ??? Ice. ??? A sling or brace. This is used to keep the arm still while the shoulder is healing. ??? Physical therapy or rehabilitation exercises. These help to improve the range of motion and strength of the shoulder. ??? Surgery (rare). Surgery may be needed if the sprain caused a joint to become unstable. Surgery may also be needed to reduce pain. Some people may develop ongoing shoulder pain or lose some range of motion in the shoulder. However, most people do not develop long-term problems. Follow these instructions at home: If you have a sling or brace: ??? Wear the sling or brace as told by your health care provider. Remove it only as told by your health care provider. ??? Loosen the sling or brace if your fingers tingle, become numb, or turn cold and blue. ??? Keep the sling or brace clean. ??? If the sling or brace is not waterproof: ??? Do not let it get wet. ??? Cover it with a watertight covering when you take a bath or shower. Activity ??? Rest your shoulder. ??? Move your arm only as much as told by your health care provider, but move your hand and fingersoften to prevent stiffness and swelling. ??? Return to your normal activities as told by your health care provider. Ask your health care provider what activities are safe for you. ??? Ask your health care provider when it is safe for you to drive if you have a sling or brace on your shoulder. ??? If you were shown how to do any exercises, do them as told by your health care provider. General instructions ??? If directed, put ice on the affected area. ??? Put ice in a plastic bag. ??? Place a towel between your skin and the bag. ??? Leave the ice on for 20 minutes, 2???3 times a day. ??? Take zlwe-loq-kpfpdwg and prescription medicines only as told by your health care provider. ??? Do not use any products that contain nicotine or tobacco, such as cigarettes, e-cigarettes, andchewing tobacco. These can delay healing. If you need help quitting, ask your health care provider. ??? Keep all follow-up visits as told by your health care provider. This is important. Contact a health care provider if: ??? Your pain gets worse. ??? Your pain is not relieved with medicines. ??? You have increased redness or swelling. Get help right away if: ??? You have a fever. ??? You cannot move your arm or shoulder. ??? You develop severe numbness or tingling in your arm, hand, or fingers. ??? Your arm, hand, or fingers feel cold and turn blue, white, or lutz. Summary ??? A shoulder sprain is a partial or complete tear in one of the tough, fiber- like tissues (ligaments) in the shoulder. ??? This condition may be caused by a fall, a hit to the shoulder, or a twist of the arm. ??? Treatment usually includes rest, ice, and pain medicine as needed. ??? If you have a sling or brace, wear it as told by your health care provider. Remove it only as told by your health care provider. This information is not intended to replace advice given to you by your health care provider. Make sure you discuss any questions you have with your health care provider. Document Revised: 09/30/2018 Document Reviewed: 09/30/2018 [employer] Patient Education ?? 2020 [employer]. 05/24/2021 06:28:12 How To Use a Sling, Wyiy-vl-Jaaw How To Use a Sling A sling is a type of hanging bandage. You wear it around your neck to protect an injured arm, shoulder, or other body part. You may need to wear a sling so that your injured body part does not move (is immobilized) while it heals. Keeping the injured part of your body still can lessen pain and speed up healing. Your doctor may suggest that you use a sling if you have: ??? A broken arm. ??? A broken collarbone. ??? A shoulder injury. ??? Surgery. What are the risks? Wearing a sling is safe. In some cases, wearing a sling the wrong way can: ??? Make your injury worse. ??? Cause stiffness or loss of feeling (numbness). ??? Affect blood flow (circulation) in your arm and hand. This can cause tingling or loss of feeling in your fingers or hands. How to use a sling Follow instructions from your doctor about how and when to wear your sling. Your doctor will show you or tell you: ??? How to put on the sling. ??? How to adjust the sling. ??? When and how often to wear the sling. ??? How to take off the sling. The way that you use a sling depends on your injury. Follow these instructions (unless your doctor tells you other instructions): ??? Wear the sling so that your elbow bends to the shape of a capital letter L (at a 90-degree angle, also called a right angle). ??? Make sure the sling supports your wrist and your hand. ??? Adjust the sling if your fingers or hand start to tingle or lose feeling. Follow these instructions at home: ??? Try to not move your arm. ??? Do not twist, lift, or move your arm in a way that could make your injury worse. ??? Do not lean on your arm while you have to wear a sling. ??? Do not lift anything while you have to wear a sling. Contact a doctor if: ??? You have: ??? Bruising, swelling, or pain that gets worse. ??? Pain that does not get better with medicine. ??? A fever. ??? Your sling: ??? Does not support your arm like it should. ??? Gets damaged. Get help right away if: ??? You lose feeling in your fingers. ??? Your fingers: ??? Are tingling. ??? Turn blue. ??? Feel cold to the touch. ??? You cannot control the bleeding from your injury. ??? You have shortness of breath. Summary ??? A sling is a type of hanging bandage. You wear it around your neck to protect an injured arm, shoulder, or other body part. ??? You may need to wear a sling so that your injured body part does not move (is immobilized) while it heals. ??? The way that you use a sling depends on your injury. Follow instructions from your doctor abouthow and when to wear your sling. ??? In general, you should wear the sling so that your elbow bends to the shape of a capital letterL. This information is not intended to replace advice given to you by your health care provider. Make sure you discuss any questions you have with your health care provider. Document Revised: 04/08/2018 Document Reviewed: 03/17/2018 [employer] Patient Education ?? 2020 [employer]
--- OUTSIDE RECORDS SUMMARY | 2022-11-18 17:37 | XMS_ITS | Continuity of Care Document ---
Author Name Unknown Organization [facility] Address Unknown Care Team Providers Care Can Feeder Name Role Phone ADRIENNE AGGARWAL Primary Care Physician Encounter Date(s): 03/09/21 - 03/09/21 [facility] [address] [place], [place] [address] Discharge Disposition: AMA Left Before Triage Attending Physician: LUCAS MURRAY, Admitting Physician: LUCAS MURRAY, Allergies, Adverse Reactions, Alerts Substance Reaction Severity Status codeine Swelling Active aspirin Swelling Active Medications methadone 120 mg, Oral, Daily, street Methadone & heroin, 0 Refill(s) Start Date: 02/26/21 Status: Ordered Motrin 800 mg, taking every 2 hrs, 0 Refill(s) Start Date: 02/26/21 Status: Ordered Procedures Procedure Date Related Diagnosis Body Site Status Child 2011 Complete d Child 2013 Complete d Left foot Surgery Complet ed Social History Social History Type Response Smoking Status Current every day sm oker; Type: Cigarettes; Previous treatment: None; Ready to change: No; Concerns about tobacco use in household: No;Never; Tobacco use per day: 20; Number of years: 22; Total pack years: 22; Started at age: 12; entered on: 02/26/21 Sex Female
--- OUTSIDE RECORDS SUMMARY | 2022-11-18 17:37 | XMS_ITS | Continuity of Care Document ---
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 Response Recorded Date/ Time Does patient have an Advance Directive? No August 18, 2022 9:16pm Does patient have a COLST form? No August 18, 2022 9:16pm Insurance Providers Guarantor LACEY VALDEZ Address [address] [place] [address] Contact Info. Home Phone: Payer Policy Id Coverage Id Subscriber's Name Subscriber Id Effective Date Expiration Date [facility] [id number] LACEY VALDEZ [id number] SELF PAY Self N/A Encounters Encounter Location(s) Arrival/Admit Date Discharge /Depart Date Provider(s) Departed Emergency [facility]-Emergency Department August 18, 2022 8:34pm August 19, 2022 2:54am null Discharged Inpatient [facility] e Care Unit August 19, 2022 10:52pm August 26, 2022 2:35pm GASTROINTESTINAL TECHNICIAN-Kat Fraser Recent Diagnosis Onset Date Bacteremia Deep vein thrombosis (DVT) of brachial v ein of right upper extremity Elevated LFTs Low back pain MRSA bacteremia Pain, dental UTI (urinary tract infection) Hepatitis [...] 2022 10:02pm Comprehension Ability Understands Concepts August 24, 2022 8:00pm Speech Appropriate August 20, 2022 1:34pm Clear August 20, 2022 1:34pm Speech Appropriate August 20, 2022 12:33pm Clear August 20, 2022 12:33pm Mood/Behavior Appropriate August 24, 2022 8:00pm Assessments Diagnosis Onset Date Resolution Status Bacteremia acute Deep vein thrombosis (DVT) o f brachial vein of right upper extremity acute Elevated LFTs acute Low back pain acute MRSA bacteremia acute Pain, dental acute UTI (urinary tract infection) acute Hepatitis C chronic Plan of Treatment Future Tests Future scheduled test information is unavailable Pending Tests Test Name Ordered Date Scheduled Date Hepatitis A IgM Antibody August 21, 2022 6:00am Hepatitis B Surface Antigen August 21, 2022 6:0 0am Hepatitis B Surface Antibody August 21, 2022 6: 00am Hepatitis B Surface Antibody, Quant August 21, 2022 6:00am Hepatitis B Core Total Antibody August 21, 2022 6:00am Hepatitis C RNA Quantitative (PCR) August 21, 6:00am Hepatitis A IgG Antibody August 21, 2022 6:00am Vital Signs Order August 20, 2022 12:03am August 20, 2022 12:20pm Future Visits Future appointment information is unavailable Referrals to Other Providers Reason for Referral Referral Start Date Provider Provider Contact Information Provider Address No Pcp Patient notified of appt in d/c folder [facility] Work Phone: [phone] [phone] Patient does not have a primary care office . [facility] provided a list of local providers with their numbers. No Pcp Future Procedures Procedure Name Ordered Date Scheduled Date HCV RNA PCR Detect/Quant August 20, 2022 12:06a m August 21, 2022 6:00am HEPATITIS PANEL August 20, 2022 12:06am August 082022 6:00am SS US PICC Line Placement August 22, 2022 1:59p m August 22, 2022 1:59pm Admission Order August 19, 2022 10:52pm August 082022 10:52pm Ambulate August 20, 2022 12:03am August 082022 7:00am Bathroom Privileges August 20, 2022 12:03am Apr 2022 12:20pm Discharge Order August 26, 2022 12:46pm August 082022 12:46pm Out of Bed to Chair August 20, 2022 12:03am Apr il 2022 12:20pm Resuscitation Status August 20, 2022 12:03am Ap ril 2022 12:03am SCD Bilateral LE August 20, 2022 12:03am August 20, 2022 12:20pm Future Medications Future medication information is unavailable Patient Instructions Viral Syndrome (DC) Hepatitis C (DC) MRSA (DC) Going Home on Blood Thinners Deep Vein Thrombosis (Blood Clots in the Arm) (DC) Goals Acute Goals Author Authored Date GENERAL DISCHARGE INSTRUCTIO NS OUR GOAL You have been cared for by the Hospital Care Team at [facility] ([facility] Our goal is to make sure that your discharge from the hospital is as safe as possible. This means making sure that: ?? You understand the reason for your hospitalization. ?? You understand your medications at discharge including any new prescriptions, changes to your medication, and stopped medications. ?? You know the symptoms of your illness and when to call for help. ?? You understand your discharge plan and instructions. ?? A summary of your care will be sent to your primary care provider and other members of your care team that you identify. Discharge Diagnosis: MRSA Bacteremia Facet joint septic arthritis Elevated LFTs R arm DVT Hepatitis C Diet: Resume Previous Diet Activity: Resume Previous Activity Activity Comment: Bathing: No Restrictions Symptoms to Report to Your Provider: Temperature > 101 F Shortness of Breath Dizziness/Lightheaded Additional Symptoms to Report to Your Provider: Worsening redness/swelling/pain in extremities Services Recommended: (if applicable): Follow Up Testing Recommended: WHO TO CALL v CONTACT US AT [facility] IF: You have not seen your primary care provider if you have questions regarding your care in the hospital including questions regarding your medications, discharge instructions, or services arranged prior to seeing your primary care provider. If you were discharged from the Progressive Care Unit, contact us at: [phone] v CONTACT YOUR PRIMARY CARE IF You are concerned that your symptoms are worsening or have returned, to see if your appointment needs to be changed or you need to be seen sooner. WHEN TO GO TO THE EMERGENCY DEPARTMENT The Emergency Department is there for you when you need immediate care for serious illness, injury or severe symptoms. You should call 911 or return to the Emergency Department v IF THE SYMPTOMS OF YOUR RECENT HOSPITALIZATION HAVE RETURNED OR SEVERELY WORSENED. THESE MIGHT INCLUDE: ?? Temperature > 101 F Shortness of Breath Dizziness/Lightheaded ?? Worsening redness/swelling/pain in extremities ?? Uncontrolled bleeding ?? Severe pain not controlled by available oral pain medications ?? Persistent vomiting or vomiting blood ?? Fainting ?? Unexpected shortness of breath or difficulty breathing ?? Persistent high fever greater than 101 ?? Seizure Goals: [facility] August 26, 2022 2:04pm Improved infection * Maintains vital signs WNL * Evidences no purulent drainage from wounds, incisions, and tubes * Maintains lab values WNL [facility] August 26, 2022 3:00pm Report pain at a tolerable l evel [facility] August 26, 2022 3:00pm Maintain or Increase Activit y Level [facility] August 26, 2022 3:00pm Understands Disease Process [facility] August 26, 2022 3:00pm Hospital Discharge Instructions Additional Instructions Continue Bactrim (antibiotic) twice daily to complete 6 full weeks of treatment - this includes IV treatment you received while hospitalized (last date 09/30/22). May take probiotic (Align or other brand) or eat panamanian yogurt 2-3 times daily to help supply your gut with good bacteria. Follow up with primary care provider in 3-5 days for continued management and recheck following hospitalization. For your new blood clot in the R arm: continue blood thinning medication, Eliquis twice daily X 3 months. This dosing tapered after the first week of treatment. - 10mg twice daily X 7 days, followed by 5mg daily (ongoing) Continue follow up with Suboxone clinic. Discharge Summary Note Author ASAF Fraser [facility] August 26, 2022 12:56pm Note Date/Time August 26, 2022 12: 56pm [facility] Hospitalist Discharge Summary PATIENT NAME: LACEY VALDEZ MRN: [id number] DATE OF : 1985 ATTENDING PHYSICIAN: ASAF Alvares PRIMARY CARE PHYS: No Pcp DICTATING PHYSICIAN: ASAF Alvares REPORT STATUS: Signed Basic Information Date of Adm/PCP: Date of Service: 08/26/22 Date of Admission: 08/19/22 Primary Care Provider: No PCP Date of Discharge: 08/26/22 Discharge Time Spent (minutes): 45 Discharge Diagnosis Problems (1) MRSA bacteremia: Status: Acute (2) Elevated LFTs: Status: Acute (3) Deep vein thrombosis (DVT) of brachial vein of right upper extremity: Status: Acute (4) Hepatitis C: Status: Chronic HPI from Admission H&P LACEY VALDEZ is a 36 year old F who presents with ABNORMAL LABS. LACEY VALDEZ is a 36 year old [...] plus Toradol 30 IV, ordered for vancomycin Hospital Course 36-year-old female with history of IVDU in remission/opioid use disorder on Suboxone, history hepatitis C untreated, asthma, PTSD/anxiety/depression, asthma/smoker who presented with positive blood cultures. Blood cultures from 08/18 are growing 4 out of 4 bottles MRSA. Repeat blood cultures on 08/19-no growth to date. She has been started on vancomycin. Due todifficulty with obtaining vancomycin levels as patient is a difficult lab draw, transitioned to daptomycin. Case was discussed with [facility] ID on 08/22, ideal plan is for 6 weeks of IV antibiotics. Patient is not sure if she will be able to stay for 6 weeks. Discussed with ID that there is some evidence that doing 2 weeks IV and 4 weeks oral may be an option. I discussed with patient that this would not be the standard of care but that it could be an option. She is agreeable to stay for at least 2 weeks. Plan would be to switch to Bactrim DS 1tab BID for orals if necessary. She has had significant back pain and MRI demonstrated right L4/L5 septic facet joint arthritis. Echocardiogram without evidence of vegetation. On 08/24 IV in RUE, removed. She subsequently developed pain. US demonstrates DVT of brachial vein SVT of cephalic of RUE. Call placed to Hematology at [facility], Dr. Rodríguez who recommends treatment for provoked DVT for 3 months; eliquis acceptable. Eliquis initiated 10mg BID X 7 days, followed by 5mgBID to complete 3 months. LUE IV site failed; unable to establish despite trying with US. New site of erythema developed. PICC team requesting repeat US to r/o DVT - which is negative. However, due to timing, PICC unable to be placed. Will offer bactrim as we have been unable to treat for almost 48 hours. Discussed with [facility] Infectious Disease and with interruption in treatment, he would offer IV therapy if patient willing to agree to additional week and then follow by oral agent Bactrim DS X 4 weeks. Discussed with patient, she is very anxious and does not want to attempt any more IV insertions or picc placement. She would prefer oral therapy and to discharge home today. Reiterated that this is not standard therapy, but it is an option if unwilling to complete the full IV antibiotic course. She is in stable condition to discharge home today. She will continue Bactrim DSX 5 weeks to complete 6 weeks of treatment for her MRSA bacteremia. She will follow up as needed with primary care provider once she establishes care. [facility] her Suboxone therapy and will continue treatment with them. Additionally, Eliquis was prescribed for treatment of her new R arm DVT. She will require treatment for 3 months. No further oxycodone wasprescribed; it was tapered and discontinued at discharge. CT Findings: CT abdomen pelvis noncontrast IMPRESSION: 1. ??? Limited exam. 2. ??? Enteritis questioned. 3. ??? Nonvisualized appendix. MRI Findings: IMPRESSION: 1.??? Findings suggestive of mild right L4-L5 septic facet joint arthritis versus inflammatory reaction. There is no evidence of discitis/osteomyelitis, soft tissue abscess formation or epidural fluid collection. 2.??? Unremarkable MRI examination of the pelvis. Ultrasound Findings: FINDINGS: At the area of pain just above the elbow the brachial vein is noncompressible and contains echogenic material while demonstrating no flow to the mid upper arm. The internal jugular and axillary veins demonstrate normal flow and compressibility. No filling defects are identified in the subclavian vein. The cephalic vein within the proximal right upper extremity below the elbow is noncompressible and demonstrates no flow. The cephalic vein is compressible at the antecubital fossa. The basilic vein is patent. IMPRESSION: 1.??? Deep vein thrombosis of the brachial vein just above the elbow to the mid upper arm. 2.??? Superficial vein thrombosis of the cephalic vein within the proximal right upper extremity and forearm. Echo: Left Ventricle The left ventricular cavity was normal in size. Left ventricular systolic function was normal with an ejection fraction of 55-60%. The estimated left ventricular ejection fraction by biplane Henry's method was 55 %. Left ventricular diastolic parameters were normal. Left ventricular wall thickness was normal. Left ventricular wall motion was normal; there were no regional wallmotion abnormalities. Right Ventricle The right ventricular cavity was normal in size. Right ventricular systolic function was normal. Right ventricular wall thickness was normal. Left Atrium The left atrium was normal in size. Right Atrium The right atrium was normal in size. Aortic Valve The aortic valve structure was trileaflet. The aortic leaflets werenot thickened. There was no aortic valve stenosis. There was no aortic valve regurgitation. Mitral Valve Mitral valve structure was normal. There was mild mitral regurgitation. There was no significant mitral valve stenosis. Tricuspid Valve Tricuspid valve structure was normal. There was trace tricuspid valve regurgitation. There was no tricuspid valve stenosis. Pulmonic Valve There was trace pulmonic valve regurgitation. There was no pulmonic valve stenosis. Pulmonic Artery Pulmonary systolic pressure was 20 + right atrial pressure. Ascending Aorta The aorta was normal in size. Pericardium There was no pericardial effusion. IVC/SVC The inferior vena cava was mildly dilated. Discharge Exam Vital Signs Last 24HRS: Vital Signs - Last Set Temp Pulse Resp BP Pulse Ox O2 Del Method 98.1 F 74 17 144/71 H 95 Room Air 08/26/22 06:00 08/26/22 06:00 08/26/22 08:00 08/25/22 20:15 08/26/22 08:00 08/26/22 08:00 Weight: Weight Weight 67.6 kg General: No Distress Eye: negative Conjunctiva Infected HENT: Moist Oral Mucosa Respiratory: Clear to Auscultation Cardiac: Regular Rhythm Vascular: negative Edema Gastrointestinal: Non-Distended, Soft, Non-Tender and Normal Bowel Sounds Dermatologic: Warm, Dry and Other (R arm without erythema/edema. L AC space withsome firmness to the touch, no erythema present, no edema. ); negative Erythema Musculoskeletal: Normal Strength Neurologic: Alert, Oriented and Normal Speech Psychiatric: Cooperative and Anxious Discharge Plan Discharge Plan Primary Discharge Diagnosis: MRSA Bacteremia Facet joint septic arthritis Elevated LFTs R arm DVT Hepatitis C Patient Disposition: Home/Self Care Activity Restrictions/Additional Instructions: Continue Bactrim (antibiotic) twice daily to complete 6 full weeks of treatment - this includes IV treatment you received while hospitalized (last date 09/30/22). May take probiotic (Align or other brand) or eat panamanian yogurt 2-3 times daily tohelp supply your gut with good bacteria. Follow up with primary care provider in 3-5 days for continued management and recheck following hospitalization. For your new blood clot in the R arm: continue blood thinning medication, Eliquis twice daily X 3 months. This dosing tapered after the first week of treatment. - 10mg twice daily X 7 days, followed by 5mg daily (ongoing) Continue follow up with Suboxone clinic. Symptoms to report to your provider: Temperature > 101 F, Shortness of Breath and Dizziness/Lightheaded Additional symptoms to report to your provider: Worsening redness/swelling/pain in extremities Discharge Diet: Resume Previous Diet Bathing: No Restrictions Discharge Activity: Resume Previous Activity Primary Care Provider: PCPof Misha Referrals: [facility] [Provider Group] - 1-2 days PCP,of Misha [Primary Care Provider] - 3-5 days Prescriptions: New apixaban 5 mg (74 tabs) tablets,dose pack See Rx Instructions .ROUTE .COMPLEX Qty: 74 0RF Rx Instructions: orally per package directions sulfamethoxazole-trimethoprim [Bactrim DS] 800-160 mg tablet 1 tab PO BID Qty: 70 0RF Rx Instructions: Continue twice daily dosing to complete 6 weeks of treatment - last dose 24PM. Continued quetiapine [Seroquel] 100 mg Tablet 50 mg PO BID ondansetron 4 mg tablet,disintegrating 4 mg PO Q8H PRN (Reason: Nausea) buprenorphine-naloxone 2-0.5 mg tablet, sublingual 1 tab SUBLINGUAL BID dexmethylphenidate 30 mg capsule,ER biphasic 50-50 30 mg PO DAILY buprenorphine-naloxone 8-2 mg tablet, sublingual 1 tab SUBLINGUAL BID sertraline 100 mg tablet 100 mg PO DAILY Discontinued amoxicillin 500 mg tablet 1,000 mg PO BID Qty: 30 0RF Instructions: Hepatitis C (DC), MRSA (DC), Going Home on Blood Thinners , Deep Vein Thrombosis (Blood Clots in the Arm) (DC) <Electronically signed by ASAF Fraser> [phone] cc: ~ History & Physical Note Author Lexi Pierre [facility] August 20, 2022 9:39am Note Date/Time August 20, 2022 12: 38am [facility] Hosp History and Physical PATIENT NAME: LACEY VALDEZ MRN: [id number] DATE OF : 1985 ATTENDING PHYSICIAN: Natasha [...] Chronic Problems (Updated 08/20/22 @ 00:24 by Markos Coronado MD) Hepatitis C (Chronic) Anxiety and [...] hives Verified 08/18/22 20:50 Home Medications: Reviewed ([employer] list) and Home med list not yet [...] 11.5 H Eos % (Auto) 3.2 H O'Brien # (Auto) 0.85 H Glucose 69 L [...] Test Results: POC UPT Negative Urine Specific Morley 1.020 Urine PH 7 Urine Leukocytes 500 Brian/ul (++) Urine Nitrites Positive Urine Protein 100 mg/dl Urine Glucose 50 mg/dl Urine Ketones Negative Urine Urobilinogen 1 mg/dl Urine Bilirubin 1 mg/dl (+) Urine Blood 50 annette/ul Urine Specimen Type Voided Impression and Plan [...] blood infection about 4 years ago at [place]. Reports that she [facility] for [facility], that [...] Note Date/Time August 19, 2022 10: 44pm [facility] ER Physician Documentation PATIENT NAME: LACEY VALDEZ MRN: [id number] DATE OF : 1985 ATTENDING PHYSICIAN: Natasha Woo MD PRIMARY CARE PHYS: No Pcp DICTATING PHYSICIAN: Yogesh Whitley MD REPORT STATUS: Signed with Addenda ADDENDUM Transition of care from overnight physician: Pending M/S admission. Resting quietly without complaints. Labs will be redrawn as scheduled by hospitalist by lab. Addended on: 08/20/22 at 0738 by <Electronically signed by Marycarmen Rondon NP> DOS DATE OF SERVICE: 08/19/22 ED PROVIDER: Yogesh Whitley PRIMARY CARE PROVIDER: No PCP sample maker hand Triage Note sample maker hand: Chief Complaint Abnormal Test Result Acuity Level [...] (20mg Buprenorphine.) Isolation Needs Hx of: Hepatitis Farina Allergies yellow dye Allergy (Unknown, Verified 08/18/22 20:50) Anaphylactic Shock. aspirin Allergy (Verified 08/18/22 20:50) hives codeine Allergy (Verified 08/18/22 20:50) hives Home Medications buprenorphine 8 mg-naloxone 2 mg sublingual film (Suboxone) 2 film sublingual DAILY 08/14/19 [Confirmed 09/05/19] dexmethylphenidate 15 mg capsule,extended release [id number] (Focalin XR) mg PO 08/14/19 ondansetron 4 [...] % (Auto) 55.2, Lymph % (Auto) 31.1, O'Brien % (Auto) 9.8, Eos % (Auto) 3.2 H, Baso % (Auto) 0.5, Neut # (Auto) 4.78, Lymph # (Auto) 2.69, O'Brien # (Auto) 0.85 H, Eos# (Auto) 0.28, [...] Test Results: POC UPT Negative Urine Specific Morley 1.020 Urine PH 7 Urine Leukocytes 500 Brian/ul (++) Urine Nitrites Positive Urine Protein 100 mg/dl Urine Glucose 50 mg/dl Urine Ketones Negative Urine Urobilinogen 1 mg/dl Urine Bilirubin 1 mg/dl (+) Urine Blood 50 annette/ul Urine Specimen Type Voided Medical Decision Making [...] Discussion with consultants: Dr. Coronado admitting to [facility] Social determinants of health: no current ivdu [...] (urinary tract infection) Patient Disposition: Admit to [facility] Disposition Decision Date: 08/19/22 Disposition Decision Time: 22:59 <Electronically signed by Yogesh Whitley MD> 08/19/22 [id number] cc: ~ Progress Note Author Natasha Woo [facility] August 20, 2022 9:58pm Note Date/Time August 20, 2022 9:5 8pm [facility] Hospitalist Progress Note PATIENT NAME: LACEY VALDEZ MRN: [id number] DATE OF : 1985 ATTENDING PHYSICIAN: Natasha Woo MD PRIMARY CARE PHYS: No Pcp DICTATING PHYSICIAN: Natasha Woo MD REPORT STATUS: Signed Interval History Date of Admission: 08/19/22 22:52 Date of Service: 08/20/22 Reason for Visit Positive blood cultures Interval History continues to have low back pain. no urinary symptoms. no pain in other joints. no metal in body. Review of Systems Constitutional: denies Fever Respiratory: denies Shortness of Breath Cardiovascular: denies Chest Pain or Lower Extremity Edema Gastrointestinal: denies Abdominal Pain Musculoskeletal: Back Pain Objective Physical Exam Vital Signs: Vital Signs - Last 24HRS Period Temp Pulse Resp BP Sys/Koroma Pulse Ox O2 Del Method O2 Flow Rate Last 24 Hr 97.7 F-97.8 F 60-89 16-18 99-156/57-94 98-100 Room Air-Room Air I & O Past 24HRS: Intake & Output Past 24 HRS 08/17/22 08/18/22 08/19/22 08/20/22 23:59 23:59 23:59 23:59 Intake Total 100 / 100 2500.0 / 2500.0 Balance 100 / 100 2500.0 / 2500.0 Weight 59.4 kg 65.4 kg General: No Distress Eye: negative Icteric Sclera HENT: Moist Oral Mucosa and Poor Dentition Respiratory: Clear to Auscultation; negative Labored, Tachypneic or Expiratory Wheezes Cardiac: Regular Rhythm and No Murmurs/Rubs/Gallops; negative Irregular Rhythm or Tachycardic Vascular: negative Edema Gastrointestinal: Non-Distended, Soft, Non-Tender and Normal Bowel Sounds Musculoskeletal: Tenderness (Low back) Neurological: Alert and Oriented Data Review Labs - Abnormals Past 24HRS: Labs - Abnormals Past 24HRS 08/20/22 08/20/22 08/19/22 00:40 00:40 22:21 MCHC RDW MPV Eos % (Auto) O'Brien # (Auto) ESR Glucose 69 L AST 51 H ALT 63 H C-Reactive Protein 38.8 H Total Protein 8.5 H Urine Protein 30 (1+) H Urine Urobilinogen 8 H Urine Bacteria 2+ H Ur Buprenorphine Scrn Positive H U Benzodiazepines Scrn Positive H Urine Cocaine Screen Positive H 08/19/22 22:21 MCHC 31.9 L RDW 14.6 H MPV 11.5 H Eos % (Auto) 3.2 H O'Brien # (Auto) 0.85 H ESR 23 H Glucose AST ALT C-Reactive Protein Total Protein Urine Protein Urine Urobilinogen Urine Bacteria Ur Buprenorphine Scrn U Benzodiazepines Scrn Urine Cocaine Screen Lab Results Reviewed: Laboratory Results Reviewed Diagnostic Imaging: Images Reviewed and Reports Reviewed CT Findings: CT abdomen pelvis noncontrast IMPRESSION: 1. ??? Limited exam. 2. ??? Enteritis questioned. 3. ??? Nonvisualized appendix. Medications Reviewed: Medication Reconciliation, MAR and Medication Orders Impression Plan Discussion/Assessment Summary 36-year-old female with history of IVDU in [...] blood infection about 4 years ago at [place]. Reports that [facility], that they were considering amputating the foot, she decided to leave and received 4 additional weeks of oral antibiotics. Denies any serious infections since. Reports history of hepatitisC untreated. Denies any illicit drug use currently, reports no IVDU for several years. 08/20- prelim results positive for MRSA. On vancomycin. MRI with L4, L5 facet joint septic arthritis. repeat cultures ngtd. echo ordered. Problems and Plan (1) Bacteremia: Status: Acute (2) Elevated LFTs: Status: Acute (3) Hepatitis C: Status: Chronic Plan 1. GPC bacteremia in clusters on blood cultures August 18, facet joint septic arthritis Vancomycin started 08/19 Follow-up blood cultures obtained August 18 - prelim mrsa -blood cx August 19- ngrd -echo ordered Pain control with scheduled Tylenol, Toradol, added dilaudid 2-4mg po prn 2. Elevated LFTs- bacteremia, history of hepatitis C untreated results for below are pending Repeat LFTs ordered for tomorrow am Hepatitis panel ordered Hep C quantification ordered HIV testing ordered continue home suboxone cintinue home seroquel 100mg hs Additional Information VTE Prophylaxis: SCDs and Other (Patient ambulatory) Anticipated Plan at Discharge: Return to Previous Living Situation <Electronically signed by Natasha Woo MD> 08/20/22 1517 cc: ~ Progress Note Author Natasha Woo [facility] August 21, 2022 6:10pm Note Date/Time August 21, 2022 6:1 0pm [facility] Hospitalist Progress Note PATIENT NAME: LACEY VALDEZ MRN: [id number] DATE OF : 1985 ATTENDING PHYSICIAN: Natasha Woo MD PRIMARY CARE PHYS: No Pcp DICTATING PHYSICIAN: Natasha Woo MD REPORT STATUS: Signed Interval History Date of Admission: 08/19/22 22:52 Date of Service: 08/21/22 Reason for Visit Positive blood cultures Interval History She continues to have low back pain. The dilaudid is not helping. Toradol seems to work best. Review of Systems Constitutional: denies Fever Respiratory: denies Shortness of Breath Cardiovascular: denies Chest Pain or Lower Extremity Edema Gastrointestinal: denies Abdominal Pain Musculoskeletal: Back Pain Psychiatric: Anxiety Objective Physical Exam Vital Signs: Vital Signs - Last 24HRS Period Temp Pulse Resp BP Sys/Koroma Pulse Ox O2 Del Method O2 Flow Rate Last 24 Hr 97.8 F-99.1 F 77-80 16-18 113-127/74-85 97-100 Room Air-Room Air I & O Past 24HRS: Intake & Output Past 24 HRS 08/18/22 08/19/22 08/20/22 08/21/22 23:59 23:59 23:59 23:59 Intake Total 100 / 100 2500.0 / 2500.0 350 / 350 Balance 100 / 100 2500.0 / 2500.0 350 / 350 Weight 59.4 kg 65.4 kg 65.1 kg General: No Distress Eye: negative Icteric Sclera HENT: Moist Oral Mucosa and Poor Dentition Respiratory: Clear to Auscultation; negative Labored, Tachypneic or Expiratory Wheezes Cardiac: Regular Rhythm and No Murmurs/Rubs/Gallops; negative Irregular Rhythm or Tachycardic Vascular: negative Edema Gastrointestinal: Non-Distended, Soft, Non-Tender and Normal Bowel Sounds Musculoskeletal: Tenderness (Low back) Neurological: Alert and Oriented Data Review Labs - Abnormals Past 24HRS: Labs - Abnormals Past 24HRS 08/20/22 23:50 Vancomycin Trough 9.86 L* Lab Results Reviewed: Laboratory Results Reviewed CT Findings: CT abdomen pelvis noncontrast IMPRESSION: 1. ??? Limited exam. 2. ??? Enteritis questioned. 3. ??? Nonvisualized appendix. MRI Findings: IMPRESSION: 1.??? Findings suggestive of mild right L4-L5 septic facet joint arthritis versus inflammatory reaction. There is no evidence of discitis/osteomyelitis, soft tissue abscess formation or epidural fluid collection. 2.??? Unremarkable MRI examination of the pelvis. Echo: Left VentricleL The left ventricular cavity was normal in size. Left ventricularsystolic function was normal with an ejection fraction of 55-60%. The estimated left ventricular ejection fraction by biplane Henry's method was 55 %. Left ventricular diastolic parameters were normal. Left ventricular wall thickness was normal. Left ventricular wall motion was normal; there were no regional wallmotion abnormalities. Right Ventricle The right ventricular cavity was normal in size. Right ventricular systolic function was normal. Right ventricular wall thickness was normal. Left Atrium The left atrium was normal in size. Right Atrium The right atrium was normal in size. Aortic Valve The aortic valve structure was trileaflet. The aortic leaflets werenot thickened. There was no aortic valve stenosis. There was no aortic valve regurgitation. Mitral Valve Mitral valve structure was normal. There was mild mitral regurgitation. There was no significant mitral valve stenosis. Tricuspid Valve Tricuspid valve structure was normal. There was trace tricuspid valve regurgitation. There was no tricuspid valve stenosis. Pulmonic Valve There was trace pulmonic valve regurgitation. There was no pulmonic valve stenosis. Pulmonic Artery Pulmonary systolic pressure was 20 + right atrial pressure. Ascending Aorta The aorta was normal in size. Pericardium There was no pericardial effusion. IVC/SVC The inferior vena cava was mildly dilated. Medications Reviewed: Medication Reconciliation, MAR and Medication Orders Impression Plan Discussion/Assessment Summary 36-year-old female with history of IVDU in remission/opioid use disorder on Suboxone, history hepatitis C untreated, asthma, PTSD/anxiety/depression, asthma/smoker who presented with positive blood cultures. Blood cultures from 08/18 are growing 4 out of 4 MRSA. Repeat blood cultures on 08/19-no growth to date. She has been started on vancomycin. She has had significant back pain and MRI demonstrated right L4/L5 septic facet joint arthritis. Echocardiogram without evidence of vegetation. PLAN MRSA bacteremia, facet joint septic arthritis -Vancomycin started 08/19 -Follow-up blood cultures obtained August 18 - prelim mrsa -blood cx August 19- ngtd -echo no vegetations -Pain control with scheduled Tylenol, Toradol 15mg IV q6h prn added dilaudid 2-4mg po prn -> changed to oxycodone 15mg q4h prn pain -lidoderm patch 2. Elevated LFTs- bacteremia, history of hepatitis C untreated results for below are pending Repeat LFTs pending for today Hepatitis panel pending Hep C quantification pending HIV testing pending continue home suboxone cintinue home seroquel 100mg hs -> patient takes 50mg BID Restarted home sertraline 100mg po Dexmethylpheidate not available -> patient agreeable to trial methylphenidate 30mg twice a day Problems and Plan (1) Bacteremia: Status: Acute (2) Elevated LFTs: Status: Acute (3) Hepatitis C: Status: Chronic (4) MRSA bacteremia: Status: Acute Plan see above Additional Information VTE Prophylaxis: SCDs and Other (Patient ambulatory) Anticipated Plan at Discharge: Return to Previous Living Situation <Electronically signed by Natasha Woo MD> 08/21/221809 cc: ~ Progress Note Author Natasha Woo [facility] August 22, 2022 5:58pm Note Date/Time August 22, 2022 5:5 8pm [facility] Hospitalist Progress Note PATIENT NAME: LACEY VALDEZ MRN: [id number] DATE OF : 1985 ATTENDING PHYSICIAN: Natasha Woo MD PRIMARY CARE PHYS: No Pcp DICTATING PHYSICIAN: Natasha Woo MD REPORT STATUS: Signed Interval History Date of Admission: 08/19/22 22:52 Date of Service: 08/22/22 Reason for Visit Positive blood cultures Interval History She continues to have low back pain. Toradol working the best. Oxycodone is helping. She feels that she is doing better now that all of her home medications have been able to be obtained. Review of Systems Constitutional: denies Fever Respiratory: denies Shortness of Breath Cardiovascular: denies Chest Pain or Lower Extremity Edema Gastrointestinal: denies Abdominal Pain Musculoskeletal: Back Pain Psychiatric: denies Anxiety Objective Physical Exam Vital Signs: Vital Signs - Last 24HRS Period Temp Pulse Resp BP Sys/Koroma Pulse Ox O2 Del Method O2 Flow Rate Last 24 Hr 98 F 101 16 122/79 98-100 Room Air-Room Air I & O Past 24HRS: Intake & Output Past 24 HRS 08/19/22 08/20/22 08/21/22 08/22/22 23:59 23:59 23:59 23:59 Intake Total 100 / 100 2500.0 / 2500.0 1672 / 1672 200 / 200 Balance 100 / 100 2500.0 / 2500.0 1672 / 1672 200 / 200 Weight 59.4 kg 65.4 kg 65.1 kg 65.9 kg General: No Distress Eye: negative Icteric Sclera HENT: Moist Oral Mucosa and Poor Dentition Respiratory: Clear to Auscultation; negative Labored, Tachypneic or Expiratory Wheezes Cardiac: Regular Rhythm and No Murmurs/Rubs/Gallops; negative Irregular Rhythm or Tachycardic Vascular: negative Edema Gastrointestinal: Non-Distended, Soft, Non-Tender and Normal Bowel Sounds Musculoskeletal: Tenderness (Low back) Neurological: Alert and Oriented Data Review Labs - Abnormals Past 24HRS: Labs - Abnormals Past 24HRS 08/20/22 23:50 Hep C IgG Ab Reactive A Microbiology Results: Microbiology 08/19/22 22:00 Urine Culture - Final Ur,Clean Catch Lab Results Reviewed: Laboratory Results Reviewed CT Findings: CT abdomen pelvis noncontrast IMPRESSION: 1. ??? Limited exam. 2. ??? Enteritis questioned. 3. ??? Nonvisualized appendix. MRI Findings: IMPRESSION: 1.??? Findings suggestive of mild right L4-L5 septic facet joint arthritis versus inflammatory reaction. There is no evidence of discitis/osteomyelitis, soft tissue abscess formation or epidural fluid collection. 2.??? Unremarkable MRI examination of the pelvis. Echo: Left Ventricle The left ventricular cavity was normal in size. Left ventricular systolic function was normal with an ejection fraction of 55-60%. The estimated left ventricular ejection fraction by biplane Henry's method was 55 %. Left ventricular diastolic parameters were normal. Left ventricular wall thickness was normal. Left ventricular wall motion was normal; there were no regional wallmotion abnormalities. Right Ventricle The right ventricular cavity was normal in size. Right ventricular systolic function was normal. Right ventricular wall thickness was normal. Left Atrium The left atrium was normal in size. Right Atrium The right atrium was normal in size. Aortic Valve The aortic valve structure was trileaflet. The aortic leaflets werenot thickened. There was no aortic valve stenosis. There was no aortic valve regurgitation. Mitral Valve Mitral valve structure was normal. There was mild mitral regurgitation. There was no significant mitral valve stenosis. Tricuspid Valve Tricuspid valve structure was normal. There was trace tricuspid valve regurgitation. There was no tricuspid valve stenosis. Pulmonic Valve There was trace pulmonic valve regurgitation. There was no pulmonic valve stenosis. Pulmonic Artery Pulmonary systolic pressure was 20 + right atrial pressure. Ascending Aorta The aorta was normal in size. Pericardium There was no pericardial effusion. IVC/SVC The inferior vena cava was mildly dilated. Medications Reviewed: Medication Reconciliation, MAR and Medication Orders Impression Plan Discussion/Assessment Summary 36-year-old female with history of IVDU in remission/opioid use disorder on Suboxone, history hepatitis C untreated, asthma, PTSD/anxiety/depression, asthma/smoker who presented with positive blood cultures. Blood cultures from 08/18 are growing 4 out of 4 MRSA. Repeat blood cultures on 08/19-no growth to date. She has been started on vancomycin. Due to difficulty with obtaining vancomycin levels as patient is a difficult lab draw, transitioning to daptomycin. Case was discussed with [facility] ID on 08/22, ideal planis for 6 weeks of IV antibiotics. Patient is not sure if she will be able to stay for 6 weeks. Discussed with ID that there is some evidence that doing 2 weeks IV and 4 weeks oral may be an option. I discussed with patient that this would not be the standard of care but that it could be an option. She is agreeable to stay for at least 2 weeks. Plan would be to switch to Bactrim DS 1tab BID for orals if necessary. She has had significant back pain and MRI demonstrated right L4/L5 septic facet joint arthritis. Echocardiogram without evidence of vegetation. PLAN MRSA bacteremia, facet joint septic arthritis -Vancomycin started 08/19. Transitioned to daptomycin on 08/22. -Follow-up blood cultures obtained August 18 - prelim mrsa with / bottles also have an additional organism of GPC with speciation pending. -blood cx August 19- ngtd -echo no vegetations PICC line ordered for wednesday -Pain control: -scheduled tylenol 650mg TID (ok with min elevated LFTs at this level and will monitor) -change toradol to ibuprofen 800mg TID with meals -lidoderm patch -We discussed doing an oxycodone taper over two weeks to start tomorrow: Eachfor 3 days: -15mg q6h with two prn/day -then decrease to q8h with two prn/day -then decrease to q12 with one prn/day -then decrease to q12 prn 2. Elevated LFTs- bacteremia, history of hepatitis C untreated results for below are pending Repeat LFTs pending - patient a difficult draw and declining labs as they have been unable to be obtained Hepatitis panel pending Hep C quantification pending HIV testing pending continue home suboxone cintinue home seroquel 100mg hs -> patient takes 50mg BID Restarted home sertraline 100mg po Dexmethylpheidate not available -> patient agreeable to trial methylphenidate 30mg twice a day Problems and Plan (1) Bacteremia: Status: Acute (2) Elevated LFTs: Status: Acute (3) Hepatitis C: Status: Chronic (4) MRSA bacteremia: Status: Acute Plan see above Additional Information VTE Prophylaxis: SCDs and Other (Patient ambulatory) Anticipated Plan at Discharge: Return to Previous Living Situation <Electronically signed by Natasha Woo MD> 08/22/22 [id number] cc: ~ Progress Note Author ASAF Fraser [facility] August 23, 2022 2:59pm Note Date/Time August 23, 2022 2:5 9pm [facility] Hospitalist Progress Note PATIENT NAME: LACEY VALDEZ MRN: [id number] DATE OF : 1985 ATTENDING PHYSICIAN: ASAF Alvares PRIMARY CARE PHYS: No Pcp DICTATING PHYSICIAN: ASAF Alvares REPORT STATUS: Signed Interval History Date of Admission: 08/19/22 22:52 Date of Service: 08/23/22 Reason for Visit Positive blood cultures Interval History Patient laying in bed, no acute distress. No leukocytosis. Continues on IV daptomycin for MRSA bacteremia. Tentative plan for PICC placement tomorrow as she will need 2 weeks IV therapy from cleared blood cultures on 08/19 (still pending, no growth to date). Review of Systems Constitutional: denies Fever Respiratory: denies Shortness of Breath Cardiovascular: denies Chest Pain or Lower Extremity Edema Gastrointestinal: denies Abdominal Pain Musculoskeletal: Back Pain Psychiatric: denies Anxiety Objective Physical Exam Vital Signs: Vital Signs - Last 24HRS Period Temp Pulse Resp BP Sys/Koroma Pulse Ox O2 Del Method O2 Flow Rate Last 24 Hr 98.3 F 77-96 16-20 134-144/78-87 97-100 Room Air-Room Air I & O Past 24HRS: Intake & Output Past 24 HRS 08/20/22 08/21/22 08/22/22 08/23/22 23:59 23:59 23:59 23:59 Intake Total 2500.0 / 2500.0 1671 / 2 1013 / 1013 Balance 2500.0 / 2500.0 1671 / 1671 1013 / 1013 Weight 65.4 kg 65.1 kg 65.9 kg 63.6 kg General: No Distress Eye: negative Conjunctiva Infected HENT: Moist Oral Mucosa and Poor Dentition Respiratory: Clear to Auscultation Cardiac: Regular Rhythm; negative Tachycardic Vascular: negative Edema Gastrointestinal: Non-Distended, Soft, Non-Tender and Normal Bowel Sounds Musculoskeletal: Tenderness (Low back) Neurological: Alert, Oriented and Normal Speech Psychiatric: Cooperative Data Review Labs - Abnormals Past 24HRS: Labs - Abnormals Past 24HRS 08/23/22 08/23/22 05:53 05:53 RBC 3.67 L Hgb 10.0 L Hct 31.6 L MCHC 31.6 L RDW 14.6 H MPV 11.2 H AST 48 H ALT 58 H Microbiology Results: Microbiology 08/19/22 22:00 Urine Culture - Final Ur,Clean Catch Lab Results Reviewed: Laboratory Results Reviewed CT Findings: CT abdomen pelvis noncontrast IMPRESSION: 1. ??? Limited exam. 2. ??? Enteritis questioned. 3. ??? Nonvisualized appendix. MRI Findings: IMPRESSION: 1.??? Findings suggestive of mild right L4-L5 septic facet joint arthritis versus inflammatory reaction. There is no evidence of discitis/osteomyelitis, soft tissue abscess formation or epidural fluid collection. 2.??? Unremarkable MRI examination of the pelvis. Echo: Left Ventricle The left ventricular cavity was normal in size. Left ventricular systolic function was normal with an ejection fraction of 55-60%. The estimated left ventricular ejection fraction by biplane Henry's method was 55 %. Left ventricular diastolic parameters were normal. Left ventricular wall thickness was normal. Left ventricular wall motion was normal; there were no regional wallmotion abnormalities. Right Ventricle The right ventricular cavity was normal in size. Right ventricular systolic function was normal. Right ventricular wall thickness was normal. Left Atrium The left atrium was normal in size. Right Atrium The right atrium was normal in size. Aortic Valve The aortic valve structure was trileaflet. The aortic leaflets werenot thickened. There was no aortic valve stenosis. There was no aortic valve regurgitation. Mitral Valve Mitral valve structure was normal. There was mild mitral regurgitation. There was no significant mitral valve stenosis. Tricuspid Valve Tricuspid valve structure was normal. There was trace tricuspid valve regurgitation. There was no tricuspid valve stenosis. Pulmonic Valve There was trace pulmonic valve regurgitation. There was no pulmonic valve stenosis. Pulmonic Artery Pulmonary systolic pressure was 20 + right atrial pressure. Ascending Aorta The aorta was normal in size. Pericardium There was no pericardial effusion. IVC/SVC The inferior vena cava was mildly dilated. Medications Reviewed: [facility] Impression Plan Discussion/Assessment Summary 36-year-old female with history of IVDU in remission/opioid use disorder on Suboxone, history hepatitis C untreated, asthma, PTSD/anxiety/depression, asthma/smoker who presented with positive blood cultures. Blood cultures from 08/18 are growing 4 out of 4 bottles MRSA. Repeat blood cultures on 08/19-no growth to date. She has been started on vancomycin. Due todifficulty with obtaining vancomycin levels as patient is a difficult lab draw, transitioned to daptomycin. Case was discussed with [facility] ID on 08/22, ideal plan is for 6 weeks of IV antibiotics. Patient is not sure if she will be able to stay for 6 weeks. Discussed with ID that there is some evidence that doing 2 weeks IV and 4 weeks oral may be an option. I discussed with patient that this would not be the standard of care but that it could be an option. She is agreeable to stay for at least 2 weeks. Plan would be to switch to Bactrim DS 1tab BID for orals if necessary. She has had significant back pain and MRI demonstrated right L4/L5 septic facet joint arthritis. Echocardiogram without evidence of vegetation. Continues on treatment without leukocytosis or fevers. Stable renal function. Ifpoor IV access consider PICC if staying for 2 weeks. PLAN MRSA bacteremia, facet joint septic arthritis -Vancomycin started 08/19. Transitioned to daptomycin on 08/22. -Follow-up blood cultures obtained August 18 - prelim mrsa with 08/11 bottles -blood cx August 19- ngtd -echo no vegetations - PICC line ordered for AM -Pain control: -scheduled tylenol 650mg TID (ok with min elevated LFTs at this level and will monitor) -change toradol to ibuprofen 800mg TID with meals -lidoderm patch - oxycodone taper over two weeks to start 16: - 16: 15mg q6h with two prn/day X 3 days -then decrease to q8h with two prn/day X 3 days -then decrease to q12 with one prn/day X 3 days -then decrease to q12 prn X 3 days 2. Elevated LFTs- bacteremia, history of hepatitis C untreated results for below are pending Repeat LFTs pending - patient a difficult draw and declining labs as they have been unable to be obtained Hepatitis panel pending Hep C quantification pending HIV testing pending continue home suboxone continue home seroquel 100mg hs -> patient takes 50mg BID Restarted home sertraline 100mg po Dexmethylphenidate not available -> patient agreeable to trial methylphenidate 30mg twice a day Problems and Plan (1) Bacteremia: Status: Acute (2) Elevated LFTs: Status: Acute (3) Hepatitis C: Status: Chronic (4) MRSA bacteremia: Status: Acute Plan see above Additional Information VTE Prophylaxis: SCDs and Other (Patient ambulatory) Anticipated Plan at Discharge: Return to Previous Living Situation <Electronically signed by ASAF Fraser> [id number] cc: ~ Progress Note Author ASAF Fraser [facility] August 24, 2022 3:37pm Note Date/Time August 24, 2022 3:3 7pm [facility] Hospitalist Progress Note PATIENT NAME: LACEY VALDEZ MRN: [id number] DATE OF : 1985 ATTENDING PHYSICIAN: ASAF Alvares PRIMARY CARE PHYS: No Pcp DICTATING PHYSICIAN: ASAF Alvares REPORT STATUS: Signed Interval History Date of Admission: 08/19/22 22:52 Date of Service: 08/24/22 Reason for Visit Positive blood cultures Interval History Patient complains of RUE with pain after IV removal. US ordered, pending. Tentative plan for PICC Placement today. Review of Systems Constitutional: denies Fever Respiratory: denies Shortness of Breath Cardiovascular: denies Chest Pain or Lower Extremity Edema Gastrointestinal: denies Abdominal Pain Musculoskeletal: Back Pain and Other (RUE aching ) Psychiatric: denies Anxiety Objective Physical Exam Vital Signs: Vital Signs - Last 24HRS Period Temp Pulse Resp BP Sys/Koroma Pulse Ox O2 Del Method O2 Flow Rate Last 24 Hr 98.2 F-99.4 F 88-117 16-18 153-168/93-95 97-100 Room Air-Room Air I & O Past 24HRS: Intake & Output Past 24 HRS 08/21/22 08/22/22 08/23/22 08/24/22 23:59 23:59 23:59 23:59 Intake Total 1672 / 1672 1013 / 1013 1113 / 1113 400 / 400 Balance 1672 / 1672 1013 / 1013 1113 / 1113 400 / 400 Weight 65.1 kg 65.9 kg 63.6 kg General: No Distress Eye: negative Conjunctiva Infected HENT: Moist Oral Mucosa and Poor Dentition Respiratory: Clear to Auscultation Cardiac: Regular Rhythm; negative Tachycardic Vascular: negative Edema Gastrointestinal: Non-Distended, Soft, Non-Tender and Normal Bowel Sounds Musculoskeletal: Tenderness (Low back, RUE) Neurological: Alert, Oriented and Normal Speech Psychiatric: Cooperative Data Review Labs - Abnormals Past 24HRS: Labs - Abnormals Past 24HRS 08/21/22 23:50 Hep B Core Total Ab Positive H Microbiology Results: Microbiology 08/19/22 22:00 Urine Culture - Final Ur,Clean Catch Lab Results Reviewed: Laboratory Results Reviewed Diagnostic Imaging: Reports Reviewed CT Findings: CT abdomen pelvis noncontrast IMPRESSION: 1. ??? Limited exam. 2. ??? Enteritis questioned. 3. ??? Nonvisualized appendix. MRI Findings: IMPRESSION: 1.??? Findings suggestive of mild right L4-L5 septic facet joint arthritis versus inflammatory reaction. There is no evidence of discitis/osteomyelitis, soft tissue abscess formation or epidural fluid collection. 2.??? Unremarkable MRI examination of the pelvis. Ultrasound Findings: FINDINGS: At the area of pain just above the elbow the brachial vein is noncompressible and contains echogenic material while demonstrating no flow to the mid upper arm. The internal jugular and axillary veins demonstrate normal flow and compressibility. No filling defects are identified in the subclavian vein. The cephalic vein within the proximal right upper extremity below the elbow is noncompressible and demonstrates no flow. The cephalic vein is compressible at the antecubital fossa. The basilic vein is patent. IMPRESSION: 1.??? Deep vein thrombosis of the brachial vein just above the elbow to the mid upper arm. 2.??? Superficial vein thrombosis of the cephalic vein within the proximal right upper extremity and forearm. Echo: Left Ventricle The left ventricular cavity was normal in size. Left ventricular systolic function was normal with an ejection fraction of 55-60%. The estimated left ventricular ejection fraction by biplane Henry's method was 55 %. Left ventricular diastolic parameters were normal. Left ventricular wall thickness was normal. Left ventricular wall motion was normal; there were no regional wallmotion abnormalities. Right Ventricle The right ventricular cavity was normal in size. Right ventricular systolic function was normal. Right ventricular wall thickness was normal. Left Atrium The left atrium was normal in size. Right Atrium The right atrium was normal in size. Aortic Valve The aortic valve structure was trileaflet. The aortic leaflets werenot thickened. There was no aortic valve stenosis. There was no aortic valve regurgitation. Mitral Valve Mitral valve structure was normal. There was mild mitral regurgitation. There was no significant mitral valve stenosis. Tricuspid Valve Tricuspid valve structure was normal. There was trace tricuspid valve regurgitation. There was no tricuspid valve stenosis. Pulmonic Valve There was trace pulmonic valve regurgitation. There was no pulmonic valve stenosis. Pulmonic Artery Pulmonary systolic pressure was 20 + right atrial pressure. Ascending Aorta The aorta was normal in size. Pericardium There was no pericardial effusion. IVC/SVC The inferior vena cava was mildly dilated. Medications Reviewed: MAR and Medication Orders Case Discussed With: Mirna Rodríguez Impression Plan Discussion/Assessment Summary 36-year-old female with history of IVDU in remission/opioid use disorder on Suboxone, history hepatitis C untreated, asthma, PTSD/anxiety/depression, asthma/smoker who presented with positive blood cultures. Blood cultures from 08/18 are growing 4 out of 4 bottles MRSA. Repeat blood cultures on 08/19-no growth to date. She has been started on vancomycin. Due todifficulty with obtaining vancomycin levels as patient is a difficult lab draw, transitioned to daptomycin. Case was discussed with [facility] ID on 08/22, ideal plan is for 6 weeks of IV antibiotics. Patient is not sure if she will be able to stay for 6 weeks. Discussed with ID that there is some evidence that doing 2 weeks IV and 4 weeks oral may be an option. I discussed with patient that this would not be the standard of care but that it could be an option. She is agreeable to stay for at least 2 weeks. Plan would be to switch to Bactrim DS 1tab BID for orals if necessary. She has had significant back pain and MRI demonstrated right L4/L5 septic facet joint arthritis. Echocardiogram without evidence of vegetation. Continues on treatment without leukocytosis or fevers. Stable renal function. Tentative plan for PICC placement today. IV in RUE, removed. She subsequently developed pain. US demonstrates DVT of brachial vein SVT of cephalic of RUE. Call placed to Hematology at [facility], Dr. Rodríguez who recommends treatment for provoked DVT for 3 months; eliquis acceptable. Eliquis initiated 10mg BID X 7 days, followed by 5mg BID to complete 3 months. Hold off on PICC today; obtain LUE US to compare and will likely pursue PICC tomorrow to completeantibiotic therapy. PLAN 1. MRSA bacteremia, facet joint septic arthritis -Vancomycin started 08/19. Transitioned to daptomycin on 08/22. -Follow-up blood cultures obtained August 18 - prelim mrsa with 08/11 bottles -blood cx August 19- ngtd -echo no vegetations - PICC delayed d/t finding of DVT in RUE - pursue in AM -Pain control: -scheduled tylenol 650mg TID (ok with min elevated LFTs at this level and will monitor) -change toradol to ibuprofen 800mg TID with meals -lidoderm patch - oxycodone taper over two weeks to start 16: - 416: 15mg q6h with two prn/day X 3 days -then decrease to q8h with two prn/day X 3 days -then decrease to q12 with one prn/day X 3 days -then decrease to q12 prn X 3 days 2. Elevated LFTs- bacteremia, history of hepatitis C untreated results for below are pending Repeat LFTs pending - patient a difficult draw and declining labs as they have been unable to be obtained Hepatitis panel pending Hep C quantification pending HIV testing pending 3. RUE DVT: - US RUE + for DVT - [facility] Hematology consulted, Dr. Rodríguez - Initiate Eliquis X 3 months - started 08/24 PM - US LUE, pending - to consider PICC in AM continue home suboxone continue home seroquel 100mg hs -> patient takes 50mg BID Restarted home sertraline 100mg po Dexmethylphenidate not available -> patient agreeable to trial methylphenidate 30mg twice a day Problems and Plan (1) MRSA bacteremia: Status: Acute (2) Elevated LFTs: Status: Acute (3) Deep vein thrombosis (DVT) of brachial vein of right upper extremity: Status: Acute (4) Hepatitis C: Status: Chronic Plan see above Additional Information VTE Prophylaxis: SCDs and DOAC (NEW eliquis) Anticipated Plan at Discharge: Return to Previous Living Situation <Electronically signed by ASAF Fraser> [id number] cc: ~ Progress Note Author ASAF Fraser [facility] August 25, 2022 5:50pm Note Date/Time August 25, 2022 5:5 0pm [facility] Hospitalist Progress Note PATIENT NAME: LACEY VALDEZ MRN: [id number] DATE OF : 1985 ATTENDING PHYSICIAN: ASAF Alvares PRIMARY CARE PHYS: No Pcp DICTATING PHYSICIAN: ASAF Alvares REPORT STATUS: Signed Interval History Date of Admission: 08/19/22 22:52 Date of Service: 08/25/22 Reason for Visit Positive blood cultures Interval History Lacey was unable to receive dose of daptomycin yesterday as her IV went bad and despite attempts with US guided they were unable to establish line. Now noted with area of erythema to LUE. PICC team requesting repeat stat US to assess if there is new clot. Review of Systems Constitutional: denies Fever Respiratory: denies Shortness of Breath Cardiovascular: denies Chest Pain or Lower Extremity Edema Gastrointestinal: denies Abdominal Pain Musculoskeletal: Back Pain and Other (RUE aching ) Psychiatric: Anxiety Objective Physical Exam Vital Signs: Vital Signs - Last 24HRS Period Temp Pulse Resp BP Sys/Koroma Pulse Ox O2 Del Method O2 Flow Rate Last 24 Hr 98.0 F-98.9 F 74-103 16-18 107-155/47-97 97-100 Room Air-Room Air I & O Past 24HRS: Intake & Output Past 24 HRS 08/22/22 08/23/22 08/24/22 08/25/22 23:59 23:59 23:59 23:59 Intake Total 1013 / 1013 1113 / 1113 700 / 700 716 / 716 Balance 1013 / 1013 1113 / 1113 700 / 700 716 / 716 Weight 65.9 kg 63.6 kg 69.7 kg General: No Distress Eye: negative Conjunctiva Infected HENT: Moist Oral Mucosa and Poor Dentition Respiratory: Clear to Auscultation Cardiac: Regular Rhythm; negative Tachycardic Vascular: negative Edema Gastrointestinal: Non-Distended, Soft, Non-Tender and Normal Bowel Sounds Musculoskeletal: Tenderness (Low back, RUE) Neurological: Alert, Oriented and Normal Speech Psychiatric: Cooperative Data Review Labs - Abnormals Past 24HRS: Labs - Abnormals Past 24HRS 08/21/22 20:44 HCV RNA Quant (PCR) [id number] H Microbiology Results: Microbiology 08/19/22 23:00 Blood Culture - Final Blood - Left Antecubital NO GROWTH AFTER 5 DAYS 08/19/22 22:21 Blood Culture - Final Blood - Right Forearm NO GROWTH AFTER 5 DAYS 08/19/22 22:00 Urine Culture - Final Ur,Clean Catch Lab Results Reviewed: No New Lab Results CT Findings: CT abdomen pelvis noncontrast IMPRESSION: 1. ??? Limited exam. 2. ??? Enteritis questioned. 3. ??? Nonvisualized appendix. MRI Findings: IMPRESSION: 1.??? Findings suggestive of mild right L4-L5 septic facet joint arthritis versus inflammatory reaction. There is no evidence of discitis/osteomyelitis, soft tissue abscess formation or epidural fluid collection. 2.??? Unremarkable MRI examination of the pelvis. Ultrasound Findings: FINDINGS: At the area of pain just above the elbow the brachial vein is noncompressible and contains echogenic material while demonstrating no flow to the mid upper arm. The internal jugular and axillary veins demonstrate normal flow and compressibility. No filling defects are identified in the subclavian vein. The cephalic vein within the proximal right upper extremity below the elbow is noncompressible and demonstrates no flow. The cephalic vein is compressible at the antecubital fossa. The basilic vein is patent. IMPRESSION: 1.??? Deep vein thrombosis of the brachial vein just above the elbow to the mid upper arm. 2.??? Superficial vein thrombosis of the cephalic vein within the proximal right upper extremity and forearm. Echo: Left Ventricle The left ventricular cavity was normal in size. Left ventricular systolic function was normal with an ejection fraction of 55-60%. The estimated left ventricular ejection fraction by biplane Henry's method was 55 %. Left ventricular diastolic parameters were normal. Left ventricular wall thickness was normal. Left ventricular wall motion was normal; there were no regional wallmotion abnormalities. Right Ventricle The right ventricular cavity was normal in size. Right ventricular systolic function was normal. Right ventricular wall thickness was normal. Left Atrium The left atrium was normal in size. Right Atrium The right atrium was normal in size. Aortic Valve The aortic valve structure was trileaflet. The aortic leaflets werenot thickened. There was no aortic valve stenosis. There was no aortic valve regurgitation. Mitral Valve Mitral valve structure was normal. There was mild mitral regurgitation. There was no significant mitral valve stenosis. Tricuspid Valve Tricuspid valve structure was normal. There was trace tricuspid valve regurgitation. There was no tricuspid valve stenosis. Pulmonic Valve There was trace pulmonic valve regurgitation. There was no pulmonic valve stenosis. Pulmonic Artery Pulmonary systolic pressure was 20 + right atrial pressure. Ascending Aorta The aorta was normal in size. Pericardium There was no pericardial effusion. IVC/SVC The inferior vena cava was mildly dilated. Medications Reviewed: MAR and Medication Orders Impression Plan Discussion/Assessment Summary 36-year-old female with history of IVDU in remission/opioid use disorder on Suboxone, history hepatitis C untreated, asthma, PTSD/anxiety/depression, asthma/smoker who presented with positive blood cultures. Blood cultures from 08/18 are growing 4 out of 4 bottles MRSA. Repeat blood cultures on 08/19-no growth to date. She has been started on vancomycin. Due todifficulty with obtaining vancomycin levels as patient is a difficult lab draw, transitioned to daptomycin. Case was discussed with [facility] ID on 08/22, ideal plan is for 6 weeks of IV antibiotics. Patient is not sure if she will be able to stay for 6 weeks. Discussed with ID that there is some evidence that doing 2 weeks IV and 4 weeks oral may be an option. I discussed with patient that this would not be the standard of care but that it could be an option. She is agreeable to stay for at least 2 weeks. Plan would be to switch to Bactrim DS 1tab BID for orals if necessary. She has had significant back pain and MRI demonstrated right L4/L5 septic facet joint arthritis. Echocardiogram without evidence of vegetation. On 08/24 IV in RUE, removed. She subsequently developed pain. US demonstrates DVT of brachial vein SVT of cephalic of RUE. Call placed to Hematology at [facility], Dr. Rodríguez who recommends treatment for provoked DVT for 3 months; eliquis acceptable. Eliquis initiated 10mg BID X 7 days, followed by 5mgBID to complete 3 months. LUE IV site failed; unable to establish despite trying with US. New site of erythema developed. PICC team requesting repeat US to r/o DVT - which is negative. However, due to timing, PICC unable to be placed today. Will offer bactrim as we have been unable to treat for almost 48 hours now. Plan to touch base with [facility] ID in the morning to revisit antibiotic therapy plan given recent events and cultures. PLAN 1. MRSA bacteremia, facet joint septic arthritis -Vancomycin started 08/19. Transitioned to daptomycin on 08/22. (No treatment X 48 hours due to IV access issues) -Follow-up blood cultures obtained August 18 - mrsa with 08/11 bottles -blood cx August 19- negative -echo no vegetations - PICC delayed d/t finding of DVT in RUE, issues with LUE -Pain control: -scheduled tylenol 650mg TID (ok with min elevated LFTs at this level and will monitor) -change toradol to ibuprofen 800mg TID with meals -lidoderm patch - oxycodone taper over two weeks to start 4/16: - 4/16: 15mg q6h with two prn/day X 3 days -then decrease to q8h with two prn/day X 3 days -then decrease to q12 with one prn/day X 3 days -then decrease to q12 prn X 3 days 2. Elevated LFTs- bacteremia, history of hepatitis C untreated results for below are pending Repeat LFTs pending - patient a difficult draw and declining labs as they have been unable to be obtained Hepatitis panel pending Hep C quantification pending HIV testing pending 3. RUE DVT: - US RUE + for DVT - [facility] Hematology consulted, Dr. Rodríguez - Initiate Eliquis X 3 months - started 08/24 PM - US LUE, pending - to consider PICC in AM continue home suboxone continue home seroquel 100mg hs -> patient takes 50mg BID Restarted home sertraline 100mg po Dexmethylphenidate not available -> patient agreeable to trial methylphenidate 30mg twice a day Problems and Plan (1) MRSA bacteremia: Status: Acute (2) Elevated LFTs: Status: Acute (3) Deep vein thrombosis (DVT) of brachial vein of right upper extremity: Status: Acute (4) Hepatitis C: Status: Chronic Plan see above Additional Information VTE Prophylaxis: SCDs and DOAC (NEW eliquis) Anticipated Plan at Discharge: Return to Previous Living Situation <Electronically signed by ASAF Fraser> [id number] cc: ~
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
[2022-11-18 17:39] LABS: AST 23 U/L (15-37); Albumin 3.6 g/dL (3.4-5.0); Alkaline Phosphatase 83 U/L (46-116); Anion Gap 6.3 mmol/L (3-11); BUN 18 mg/dL (7-18); Bilirubin, Total 0.4 mg/dL (0.2-1.0); C-Reactive Protein 0.16 mg/dL (0.0-0.3); CO2 30.7 mmol/L (21.0-32.0); CREATININE 0.8 mg/dL (0.55-1.02); Calcium 8.9 mg/dL (8.5-10.1); Chloride 101 mmol/L (98-107); Estimated GFR 97.87 (mL/min/1.73m2); Glucose 93 mg/dL (74-106); Potassium 3.6 mmol/L (3.5-5.1); Sodium 138 mmol/L (136-145); Total Protein 8.4 g/dL (6.4-8.2)
[2022-11-18 17:48] LABS: ALT < 6 U/L (14-59)
[2022-11-18] MEDS: VANCOMYCIN 1,000 MG in Normal Saline 500 ML 333.3333 MG IVPB (18:01)
[2022-11-18] MEDS: Normal Saline 500 ML IV (18:01)
--- NOTE | 2022-11-18 18:36 | W.PM.HP.N ---
Date of service: 11/18/22 Time of Service: 18:36 Assessment and Plan Assessment and plan (1) Septic prepatellar bursitis of right knee: Status: Acute Assessment and plan: Potential overlying cellulitis. H/O MRSA bacteremia. Blood cultures obtained. Rocephin and Vancomycin initiated. Ortho to evaluate tomorrow. Tramadol prn for pain. PRN acetaminophen for pain or fever. (2) IV drug abuse: Status: Acute Assessment and plan: Opioid withdrawal monitoring. PRN clonidine. PRN atarax. Avoiding benzodiazapines if possible. History of Present Illness History of Present Illness Chief Complaint: R knee pain Narrative: This is a 36 yo female with a PMH of IV drug abuse, hepatitis C. She presented to the ED via EMS with c/o R knee pain that has been increasing over several days. No knee trauma reported. No fever. + chills. No N/V/abd pain. She was hospitalized in August at [place] for 1 week. She is currently in police custody. Last IV drug use was reported to be 3 days ago; heroin and crack cocaine that she injected. She also took 20mg of suboxone obtained on the street. In the ED her WBC count was normal. Lytes normal. Afebrile and normotensive. Pulse 70. XR of knee showed prepatellar swelling w/o any noted bony involvement. Orthopedist discussed this with ED physician and they will evaluate her in the AM Rocephin and Vancomycin initiated in the ED. Review of Systems All systems reviewed & are unremarkable except as noted in HPI and below PFSH All Active Problems Septic prepatellar bursitis of right knee (Acute) IV drug abuse (Acute) Opioid withdrawal (Acute) Cutaneous abscess of left ankle (Acute) S/P I& Cellulitis of left ankle (Acute) Sepsis (Acute) Discharge planning issues (Acute) DVT prophylaxis (Acute) Intractable pain (Acute) Closed fracture of left distal fibula (Acute) Social History Smoking/Tobacco Use Status: Current every day Tobacco Type: cigarettes Smoking risk assessment performed?: Yes Alcohol Intake: never Drug use: Occasionally Substance use type: heroin and IV drugs Details: 3 days ago used heroin & crack Do you feel safe at home: Yes Do you feel safe in your relationship?: Yes Meds Allergies and Home Medications Allergies Allergy/AdvReac Type Severity Reaction Status Date / Time aspirin Allergy Mild Hives Unverified 11/18/22 16:08 codeine [Codeine] Allergy Mild Hives Unverified 11/18/22 16:08 Home Medications Medication Instructions Recorded Confirmed Type Unknown [No Known Home Meds] 11/18/22 11/18/22 History Exam Narrative Exam Narrative: Pt is lying in left lateral decubitus position. She kept her eyes closed during my evaluation. She shook her head yes when asked if she could hear me. She did not respond to any further questions. Const General: no acute distress Nutritional Appearance: thin HENMT Head: normocephalic and atraumatic Mouth: mucous membranes dry Resp Effort & Inspection: normal respiratory effort Auscultation: clear to auscultation bilaterally Cardio Rate: regular rate Rhythm: regular rhythm Heart Sounds: no murmurs GI Palpation: soft and nontender Skin Lesions: no lesions (abrasion of right knee. scattered excoriated lesions on extremities. ) Extrem General: no pedal edema Right lower extremity: joint enlargement noted (knee swelling with overlying dusky erythema. Tender. No purulent drainage) Psych Speech and Movement: other (Doesn't verbalize during my exam. ) Attitude: refuses to answer Results Labs 11/18/22 16:30 11/18/22 16:55 Labs: Laboratory Results - last 24 hr 11/18/22 11/18/22 11/18/22 16:30 16:55 16:55 WBC 6.81 RBC 3.91 L Hgb 10.4 L Hct 32.6 L MCV 83 MCH 26.6 L MCHC 31.9 L RDW 14.3 Plt Count 228 MPV 11.1 H Immature Gran % 0.3 Neutrophils % 44.2 Lymphocytes % 43.0 Monocytes % 10.7 Eosinophils % 1.2 Basophils % 0.6 Nucleated RBC % 0.0 Absolute Neutrophils 3.01 Absolute Lymphocytes 2.93 Absolute Monocytes 0.73 Absolute Eosinophils 0.08 Absolute Basophils 0.04 ESR VBG Lactate Sodium 138 Potassium 3.6 Chloride 101 Carbon Dioxide 30.7 Anion Gap 6.3 BUN 18 Creatinine 0.8 Est GFR (CKD-EPI 2020) 97.87 Glucose 93 Calcium 8.9 Total Bilirubin 0.4 AST 23 ALT < 6 L Alkaline Phosphatase 83 C-Reactive Protein 0.16 Total Protein 8.4 H Albumin 3.6 Serum HCG, Qual Negative 11/18/22 11/18/22 16:55 16:55 WBC RBC Hgb Hct MCV MCH MCHC RDW Plt Count MPV Immature Gran % Neutrophils % Lymphocytes % Monocytes % Eosinophils % Basophils % Nucleated RBC % Absolute Neutrophils Absolute Lymphocytes Absolute Monocytes Absolute Eosinophils Absolute Basophils ESR 41 H VBG Lactate 0.6 Sodium Potassium Chloride Carbon Dioxide Anion Gap BUN Creatinine Est GFR (CKD-EPI 2020) Glucose Calcium Total Bilirubin AST ALT Alkaline Phosphatase C-Reactive Protein Total Protein Albumin Serum HCG, Qual Last Vital Signs Temp 36.8 C 11/18/22 16:04 Pulse 70 11/18/22 16:04 Resp 18 11/18/22 16:04 BP 111/72 11/18/22 16:04 Pulse Ox 96 11/18/22 16:04 Time Spent Time spent with Patient: 40-54 minutes Time was spent: preparing to see the patient(eg.review tests), obtaining and/or reviewing separately otained hiistory, ordering medications,tests, procedures and indepentently interpreting results
[2022-11-18 20:54] VITALS: BP 102/65; PULSE 66; RESP 16; TEMP 36.2; O2SAT 97
[2022-11-19] MEDS: VANCOMYCIN 500 MG in Normal Saline 100 ML 100 MG IV ×2 (03:08→10:15)
[2022-11-19 07:23] VITALS: BP 119/81; PULSE 50; TEMP 36.5; O2SAT 99
--- NOTE | 2022-11-19 08:37 | PDOC.CMIN ---
Date of service: 11/19/22 Time of Service: 08:37 Care Management Initial Assmt Initial Assessment REASON FOR HOSPITALIZATION:: prepatellar bursitis PREVIOUS FUNCTIONAL STATUS/SOCIAL/FAMILY SUPPORTS:: Vee is currently in police custody. CURRENT FUNCTIONAL STATUS:: Vee was lying in bed with her eyes closed both times CM attempted to meet with her. CM was informed that she was asleep the first time, but the second time her nurse was present and stated she was awake. CM attempted to engage with Vee but she refused to acknowledge CM or answer any questions. Per her nurse, she may be discharged later today. ADVANCE DIRECTIVES:: none on file Has patient been provided with info about the portal/API?: No Did the patient sign up for the portal?: No CODE STATUS:: Full Code INSURANCE COVERAGE / FINANCIAL ISSUES:: medicaid CURRENT HOME/COMMUNITY SERVICES/EQUIPMENT:: currently incarcerated PATIENT/FAMILY EDUCATION NEEDS:: review of discharge instructions, follow up plan, Ask me Three TRANSPORTATION:: with corrections officers PLAN:: Vee will be discharged back to the corrections facility in the company of the corrections officers. PFSH All Active Problems Prepatellar bursitis, right knee (Acute) Septic prepatellar bursitis of right knee (Acute) IV drug abuse (Acute) Opioid withdrawal (Acute) Cutaneous abscess of left ankle (Acute) S/P I& Cellulitis of left ankle (Acute) Sepsis (Acute) Discharge planning issues (Acute) DVT prophylaxis (Acute) Intractable pain (Acute) Closed fracture of left distal fibula (Acute) Social History Smoking/Tobacco Use Status: Current every day Tobacco Type: cigarettes Smoking risk assessment performed?: Yes Alcohol Intake: never Drug use: Occasionally Substance use type: heroin and IV drugs Details: 3 days ago used heroin & crack Housing: homeless Do you feel safe at home: Yes Do you feel safe in your relationship?: Yes
[2022-11-19] MEDS: traMADol 50 MG TAB 100 MG PO ×2 (08:50→15:57)
[2022-11-19] MEDS: cloNIDine 0.1 MG TAB PO ×2 (08:50→13:24)
--- NOTE | 2022-11-19 09:52 | W.ORTHOCONSU ---
Date of service: 11/19/22 Time of Service: 09:52 History of Present Illness Narrative: Vee is a 36 year old female who has a significant history of polysubstance abuse and superficial infections and Hepatitis C. I had seen her previously for a subcutaneous, yet extensive, abscess about the ankle for which she underwent I&D in 2019 yet left AMA and never had any follow-up. She presents to the ED yesterday in police custody with right knee pain. She reports increasing pain over the last few days although it seems like it has been an ongoing issue as she was seen in [place] on October 24 for the same problem which was aspirated with [facility]PC in pairs and clusters, treated with Dalbavancin at that time. She was arranged for outpatient follow-up but never followed through with that. There is no clear precipitating event although she just reports worsening pain of the right knee. She is quite sleepy but does interact with the interviewer and answers questions. She reports diffuse pain about the right knee not ust isolated to the prepatellar space. She reports pain with all motion of the knee although she is reluctant to actively move the knee or open her eyes to otherwise discuss in more detail. She reports pain all over as well and generally feeling horrible since she is withdrawing. She has been actively using IV drugs, injected 3 days prior. Her vitals have been stable. Lactate is normal. ESR is mildly elevated and CRP is relatively normal. Assessment and Plan Assessment and plan (1) Prepatellar bursitis, right knee: Status: Acute Assessment and plan: Vee is a 36 year old who has a chronic prepatellar bursitis. While this may have been septic in the past, I actually don't think that is the case at this point. She has no errythema and no true area of fluctuance. Her inflammatory markers, specifically CRP, would not suggest this is an acute issue. She will continue to have risks of superficial and subcutaneous infections given the multiple areas of skin escoriations/abrasions/wounds and her IVDU status. There is no surgical indication at this time although if this remained quite full and painful, a surgical discussion could be had as an outpatient. Another round of antibiotics could be considered on discharge just given the social dynamics and her history of lack of follow-up. Review of Systems All systems reviewed & are unremarkable except as noted in HPI and below PFSH All Active Problems Prepatellar bursitis, right knee (Acute) Septic prepatellar bursitis of right knee (Acute) IV drug abuse (Acute) Opioid withdrawal (Acute) Cutaneous abscess of left ankle (Acute) S/P I& Cellulitis of left ankle (Acute) Sepsis (Acute) Discharge planning issues (Acute) DVT prophylaxis (Acute) Intractable pain (Acute) Closed fracture of left distal fibula (Acute) Social History Smoking/Tobacco Use Status: Current every day Tobacco Type: cigarettes Smoking risk assessment performed?: Yes Alcohol Intake: never Drug use: Occasionally Substance use type: heroin and IV drugs Details: 3 days ago used heroin & crack Housing: homeless Do you feel safe at home: Yes Do you feel safe in your relationship?: Yes Exam Narrative Exam Narrative: Laying supine in the bed on her left side and then on her back. She keeps her eyes closed for the exam and interview. She is seen to move the knee although she reported difficulties due to pain. Evaluation of the right leg shows multiple areas of escoriations that are in various phases of healing but no truly open sores. There are no signs of errythema around these areas of the leg. No significnat edema. There is some fulness to the anterior knee which also has an eschar over the anteromedial knee which has no errythema. There is some areas of resolving ecchymosis. The fullness of the anterior knee is not well defined and without area of true fluctuance. No effusion within the knee. I am able to passively move the knee from 0-90 degrees without significant pain increase. However all light touch, palpation of the knee, and the movement of the knee hurt the same without withdrawing. Results Last Vital Signs Temp 36.5 C 11/19/22 07:23 Pulse 50 L 11/19/22 07:23 Resp 16 11/18/22 20:54 BP 119/81 11/19/22 07:23 Pulse Ox 99 11/19/22 07:23 Labs 11/18/22 16:30 11/18/22 16:55 Labs: Laboratory Results - last 24 hr 11/18/22 11/18/22 11/18/22 16:30 16:55 16:55 WBC 6.81 RBC 3.91 L Hgb 10.4 L Hct 32.6 L MCV 83 MCH 26.6 L MCHC 31.9 L RDW 14.3 Plt Count 228 MPV 11.1 H Immature Gran % 0.3 Neutrophils % 44.2 Lymphocytes % 43.0 Monocytes % 10.7 Eosinophils % 1.2 Basophils % 0.6 Nucleated RBC % 0.0 Absolute Neutrophils 3.01 Absolute Lymphocytes 2.93 Absolute Monocytes 0.73 Absolute Eosinophils 0.08 Absolute Basophils 0.04 ESR VBG Lactate Sodium 138 Potassium 3.6 Chloride 101 Carbon Dioxide 30.7 Anion Gap 6.3 BUN 18 Creatinine 0.8 Est GFR (CKD-EPI 2020) 97.87 Glucose 93 Calcium 8.9 Total Bilirubin 0.4 AST 23 ALT < 6 L Alkaline Phosphatase 83 C-Reactive Protein 0.16 Total Protein 8.4 H Albumin 3.6 Serum HCG, Qual Negative 11/18/22 11/18/22 16:55 16:55 WBC RBC Hgb Hct MCV MCH MCHC RDW Plt Count MPV Immature Gran % Neutrophils % Lymphocytes % Monocytes % Eosinophils % Basophils % Nucleated RBC % Absolute Neutrophils Absolute Lymphocytes Absolute Monocytes Absolute Eosinophils Absolute Basophils ESR 41 H VBG Lactate 0.6 Sodium Potassium Chloride Carbon Dioxide Anion Gap BUN Creatinine Est GFR (CKD-EPI 2020) Glucose Calcium Total Bilirubin AST ALT Alkaline Phosphatase C-Reactive Protein Total Protein Albumin Serum HCG, Qual Imaging Imaging Studies: X ray of the right knee from 11/18/22 was reviewed. This demonstrates fullness and swelling about the anterior knee. No effusion. No ossous lesions. No suspicious lesions.
[2022-11-19] MEDS: Acetaminophen 325 MG TAB PO (13:24)
--- NOTE | 2022-11-19 15:12 | CHAPLAIN ---
Vee was sleeping when I visited. She is in police custody. I spoke with two officers who were with her, explained my role and offered support.
[2022-11-19] MEDS: cefTRIAXone 2 GM/50 ML BAG IVPB (15:57)
[2022-11-19] MEDS: hydrOXYzine HCL 50 MG TAB PO (15:57)
[2022-11-19] MEDS: DALBAVANCIN 1,500 MG in DEXTROSE 5%-WATER 325 ML 650 MG IVPB (16:35)
--- NOTE | 2022-11-19 16:57 | DSE_ITS ---
Date of service: 11/19/22 Time of Service: 16:58 DS: Diagnosis Discharge Diagnosis (1) Prepatellar bursitis, right knee: Status: Acute Discharge Plan Disposition Patient Disposition: [facility] Condition: Stable Discharge Details Reason For Visit: Prepatellar Bursitis Admit Date/Time: 11/18/22 18:21 Admit Provider: Davis Almonte Attending Provider: Davis Almonte Primary Care Provider: Unknown,Unknown Hospital Course Hospital Course: This is a 36-year-old female patient under police custody who presented to the emergency department for evaluation of right knee pain. She has a history of IV drug abuse. Found to have bursitis, prepatellar of the right knee. Orthopedics was consulted it was not felt to be acute but rather chronic with no evidence of sepsis and with no surgical indication at this time. She was given 1 dose of dalbavancin and can be discharged for further outpatient evaluation by orthopedics. She can use heat or ice to the affected area. [id number] pain medication as directed. she has been afebrile with stable vitals. no evidence of opioid withdrawal. stable for discharge with outpatient follow up if needed. discussed with DR Vickers. Home Meds and New Rx's Prescriptions: New acetaminophen 325 mg Tablet 650 mg PO Q4H PRN PRNQty: 0 0RF Discharge Instructions Instructions: Knee Bursitis (ED) Additional Instructions: can use heat or ice for comfort. Stand Alone Forms: Nursing Discharge Form Referrals: Unknown,Unknown [Primary Care Provider] - (follow up outpatient with orthoped ics) Activity:: Activity as Tolerated Equipment/Supplies:: No Equipment Needed Diet:: As Tolerated Discharge Orders Discharge Orders: Discharge Order (Routine); Ordered 11/19/22 Ordered By: Etta Chadwick DS: Summary Time Spent with Patient providing and/or coordinating discharge services: Less than 30 minutes Status at Discharge Functional status at discharge: independent ambulation Overall status at discharge: patient is not back to baseline Mental Status: other Speech and Movement: other Mood: other Affect: blunted Exam Const General: disheveled and ill appearing chronically Nutritional Appearance: thin Orientation: other (refuses to interact with me) HENMT Head: normal to inspection and normocephalic Chest Chest: normal inspection of the chest Resp Effort & Inspection: normal respiratory effort (Even and unlabored) Cardio Rate: regular rate Rhythm: regular rhythm Extrem General: full ROM Psych Appearance: disheveled Mental Status: other Speech and Movement: other Mood: other Affect: blunted Attitude: avoids eye contact and refuses to answer DS: Data Vitals/I&O Vitals and I&O: Vital Signs Temperature 36.5 C 11/19/22 07:23 Temperature Source Tympanic 11/19/22 07:23 Pulse 50 L 11/19/22 07:23 Pulse Rhythm Regular 11/19/22 08:00 Respiratory Rate 16 11/18/22 20:54 Respiratory Effort Normal, Non-Labored 11/19/22 08:00 Respiratory Depth Normal 11/19/22 08:00 Respiratory Pattern Normal 11/19/22 08:00 Blood Pressure 119/81 11/19/22 07:23 Blood Pressure Position Supine 11/18/22 16:04 Pulse Oximetry 99 11/19/22 07:23 Oxygen Delivery Method Room Air 11/19/22 07:23 Oxygen Flow Rate 0 11/19/22 07:23 Pain Level 10 11/19/22 08:00 Comment Patient refused all vital signs, Nurse and CC aware. 11/19/22 15:07 Intake & Output 11/18/22 11/19/22 11/19/22 23:59 11:59 23:59 Intake Total 1150 / 1150 210 / 450 240 / 450 Balance 1150 / 1150 210 / 450 240 / 450 Weight 52.163 kg Intake: IV 1150 / 1150 210 / 210 Oral 240 / 240 Data Completed and Pending Labs on day of discharge: Labs from last 24 hours 11/19/22 11/19/22 11/19/22 05:35 05:35 05:35 WBC Pending RBC Pending Hgb Pending Hct Pending MCV Pending MCH Pending MCHC Pending RDW Pending Plt Count Pending MPV Pending Immature Gran % Pending Neutrophils % Pending Lymphocytes % Pending Monocytes % Pending Eosinophils % Pending Basophils % Pending Nucleated RBC % Absolute Neutrophils Pending Absolute Lymphocytes Pending Absolute Monocytes Pending Absolute Eosinophils Pending Absolute Basophils Pending ESR Pending VBG Lactate Sodium Potassium Chloride Carbon Dioxide Anion Gap BUN Creatinine Est GFR (CKD-EPI 2020) Glucose Calcium Magnesium Pending Total Bilirubin AST ALT Alkaline Phosphatase C-Reactive Protein Pending Total Protein Albumin Serum HCG, Qual 07/05/0111/18/22 11/18/22 16:55 16:55 16:55 WBC RBC Hgb Hct MCV MCH MCHC RDW Plt Count MPV Immature Gran % Neutrophils % Lymphocytes % Monocytes % Eosinophils % Basophils % Nucleated RBC % Absolute Neutrophils Absolute Lymphocytes Absolute Monocytes Absolute Eosinophils Absolute Basophils ESR 41 H VBG Lactate 0.6 Sodium 138 Potassium 3.6 Chloride 101 Carbon Dioxide 30.7 Anion Gap 6.3 BUN 18 Creatinine 0.8 Est GFR (CKD-EPI 2020) 97.87 Glucose 93 Calcium 8.9 Magnesium Total Bilirubin 0.4 AST 23 ALT < 6 L Alkaline Phosphatase 83 C-Reactive Protein 0.16 Total Protein 8.4 H Albumin 3.6 Serum HCG, Qual 11/18/22 11/18/22 16:55 16:30 WBC 6.81 RBC 3.91 L Hgb 10.4 L Hct 32.6 L MCV 83 MCH 26.6 L MCHC 31.9 L RDW 14.3 Plt Count 228 MPV 11.1 H Immature Gran % 0.3 Neutrophils % 44.2 Lymphocytes % 43.0 Monocytes % 10.7 Eosinophils % 1.2 Basophils % 0.6 Nucleated RBC % 0.0 Absolute Neutrophils 3.01 Absolute Lymphocytes 2.93 Absolute Monocytes 0.73 Absolute Eosinophils 0.08 Absolute Basophils 0.04 ESR VBG Lactate Sodium Potassium Chloride Carbon Dioxide Anion Gap BUN Creatinine Est GFR (CKD-EPI 2020) Glucose Calcium Magnesium Total Bilirubin AST ALT Alkaline Phosphatase C-Reactive Protein Total Protein Albumin Serum HCG, Qual Negative 11/18/22 18:30 Blood Blood Culture - Pending 11/18/22 16:55 Blood Blood Culture - Pending Preliminary micro results at discharge 11/18/22 18:30 Blood Culture - Pending Blood 11/18/22 16:55 Blood Culture - Pending Blood [facility] All Active Problems Prepatellar bursitis, right knee (Acute) Septic prepatellar bursitis of right knee (Acute) IV drug abuse (Acute) Opioid withdrawal (Acute) Cutaneous abscess of left ankle (Acute) S/P I& Cellulitis of left ankle (Acute) Sepsis (Acute) Discharge planning issues (Acute) DVT prophylaxis (Acute) Intractable pain (Acute) Closed fracture of left distal fibula (Acute) Social History Smoking/Tobacco Use Status: Current every day Tobacco Type: cigarettes Smoking risk assessment performed?: Yes Alcohol Intake: never Drug use: Occasionally Substance use type: heroin and IV drugs Details: 3 days ago used heroin & crack Housing: homeless Do you feel safe at home: Yes Do you feel safe in your relationship?: Yes Time Spent with Patient Time Spent with Patient: <45 minutes Time was spent: preparing to see the patient(eg.review tests), obtaining and/or reviewing separately otained hiistory, ordering medications,tests, procedures, referring, communicating with other health palliative care nurse and indepentently interpreting results
== END 2022-11-19 18:05 | DRG 558 ==
LOC: ER 19:00 → MS 19:18
PROVIDERS: Admitting Provider Family Medicine; Emergency Provider Emergency Medicine; Visit Provider Family Medicine
DX: M70.41 Prepatellar bursitis, right knee (principal); L03.115 Cellulitis of right lower limb; B19.20 Unspecified viral hepatitis C without hepatic coma; F17.210 Nicotine dependence, cigarettes, uncomplicated; F14.10 Cocaine abuse, uncomplicated; F11.10 Opioid abuse, uncomplicated
CPT/HCPCS: 36415; 73562; 80053; 85652; 87040; 83605; 83735; 84703; 85025; 86140; 99223; 99238; J0131; J0875; J3490